=== PATIENT | female | born 1945 | race Caucasian/White ===

== ENCOUNTER → 2018-05-14 11:49 | Outpatient (CLI) | payer OTHER, MEDICAID, SELFPAY ==
[2018-05-14 13:02] LABS: Glucose 82 mg/dL (70-100); Uric Acid 7.4 mg/dL (2.6-6.0)
== END ==
PROVIDERS: PCP Family Medicine; Visit Provider Family Medicine
DX: E79.0 Hyperuricemia without signs of inflammatory arthritis and tophaceous disease (principal); E66.9 Obesity, unspecified
CPT/HCPCS: 36415; 82947; 84550

== ENCOUNTER 2018-05-28 00:54 | Outpatient (CLI) | payer OTHER, MEDICAID, SELFPAY ==
--- NOTE | 2018-05-28 15:10 | DI.MAMMO_ITS ---
SYMPTOMS/DIAGNOSIS: SCREENING, Z12.31 BILATERAL SCREENING MAMMOGRAMS: Mammograms were interpreted according to the usual protocol including computer analysis with CAD system, tomosynthesis and C view imaging. Comparison is made with exams from 2012 through 2016. The breasts are composed of scattered fibroglandular densities. A biopsy marker clip is again noted on the central right breast. There are benign calcifications bilaterally. No suspicious masses or suspicious microcalcifications are seen. There has been no significant change. IMPRESSION: Category 2B, negative mammogram. Routine screening is recommended. MQSA ASSESSMENT OF FINDINGS: Negative with benign findings. Category 2. Patient will receive a letter notifying them of these results. BI-RADS category B. There are scattered areas of fibroglandular density.
== END 2018-05-28 01:14 ==
PROVIDERS: PCP Family Medicine; Visit Provider Family Medicine
DX: Z12.31 Encounter for screening mammogram for malignant neoplasm of breast (principal)
CPT/HCPCS: 77063; 77067

== ENCOUNTER 2019-09-15 11:05 | Observation (INO) | payer OTHER, MEDICAID, SELFPAY ==
[2019-09-15] VITALS (10 sets, daily range): BP systolic 125–169; BP diastolic 66–85; PULSE 81–101; RESP 14–19; TEMP 36.4–37; O2SAT 91–100
--- NOTE | 2019-09-15 11:48 | W.ED.GENAD ---
Discharge Plan Disposition Patient Disposition: [facility] INPATIENT Condition: Stable Discharge Details Chief Complaint: Dizzy/Sync Clinical Impression: Gait instability Admit Date/Time: 09/15/19 14:28 Admit Provider: Isabell Millan Attending Provider: Isabell Millan Primary Care Provider: Haseeb Estrada ED Provider: Leigh Eller Discharge Data Discharge Date/Time-TO BE ENTERED AT DEPARTURE: 09/15/19 15:08 Medical Decision Making Is a very pleasant 74-year-old patient who presents for complaints of onset of lightheadedness and a feeling of syncope which occurred around approximately 2:00 this morning. Patient went to bed feeling normally. Patient reports episode lasted approximately 1 hour then she watched some TV and eventually fell asleep. Patient awoke with an unsteady gait and feels off balance at this time. Patient denies any headache. Patient denies any numbness, tingling or weakness of arms or legs. On exam patient does have focal weakness with left packaging mechanic strength compared to the right. Patient has no focal lower leg findings. Patient does have an unsteady gait at this timeand reports feeling off balance but denies dizziness when ambulating. Otherwise patient has a normal neurologic exam CT ordered as well as initial labs, plan of care at this time is rule out stroke. Patient's initial EKG reveals regular sinus rhythm with a heart rate of 97. Nonspecific flattening of the ST segments was noted diffusely. Reviewed with Dr. Jace Dugan. Patient's labs reveal no significant leukocytosis, no significant CMP changes. Patient's urinalysis unremarkable for obvious infection, trace leukocyte esterase were noted however patient has no significant urinary tract symptoms at this time. CT reveals EXAM: CT HEAD WO CLINICAL HISTORY: unsteady gait, left arm weakness r/o stroke TECHNIQUE: The study was performed according to the usual protocol. COMPARISON: No exams were available for comparison FINDINGS: The ventricles and sulci are consistent with the patient's age. No acute intracranial hemorrhage, midline shift or mass effect is present. The ventricles are intact. The basilar cisterns are patent. Visualized paranasal sinuses are clear as are the mastoid air cells. The calvarium is intact. IMPRESSION: No acute intracranial process. These findings were discussed with the emergency department on the date of the examination. Given patient's symptoms and persisting gait instability and balance loss. I do feel it is reasonable to admit this patient to the hospital for further evaluation of unsteady gait. Spoke with the hospitalist who agrees with mission to the hospital. Patient's preference is admission to the hospital at this time and agrees with plan of care. HPI General Date/Time Provider Initiated Documentation: 09/15/19 11:22. HPI Narrative: Is a 74-year-old patient who presents for complaints of acute dizziness which began while laying in bed lasting approximately an hour beginning at 2:00 this morning. Patient reports the sensation of feeling like she would pass out. Patient reports episode lasted approximately 1 hour. Patient did watch some TV thereafter symptoms were less noticeable. Patient eventually fell asleep woke this morning at approximately 830 and reports her gait seems off balance. Patient does report persistent lightheaded sensation but denies active spinning. Patient does report symptoms are worse when attempting to walk. Patient denies numbness, tingling or weakness of arms or legs. Patient denies headache. Denies recent upper respiratory infection, nasal congestion, fever, nausea, vomiting, cough. Patient denies abdominal pain. Patient denies urinary urgency, frequency or dysuria. Patient was able to eat and felt normal yesterday. Patient reports she was able to have toast and banana this morning without difficulty. Patient does report increased stress. Related Data Home Medications Medication Instructions Recorded Confirmed multivitamin 1 ea PO DAILY 12/30/12 09/15/19 cholecalciferol (vitamin D3) 1 tab PO DAILY #90 tab 11/10/17 09/15/19 lorazepam 0.5 mg tablet 0.5 mg PO QD-BID PRN #14 tab 11/05/18 09/15/19 adjuvant AS01B (PF)vial 1 of 2 0.5 ml IM DAILY #0.5 ml 12/01/18 09/15/19 diclofenac potassium 50 mg tablet 50 mg PO TID PRN #30 tab 03/02/19 09/15/19 fexofenadine 180 mg tablet 180 mg PO DAILY PRN #30 tab-cap 03/02/19 09/15/19 telmisartan 80 mg tablet 40 mg PO DAILY #45 tab 03/04/19 09/15/19 Previous Rx's Medication Instructions Recorded cholecalciferol (vitamin D3) 1 tab PO DAILY #90 tab 11/10/17 lorazepam 0.5 mg tablet 0.5 mg PO QD-BID PRN #14 tab 11/05/18 adjuvant AS01B (PF)vial 1 of 2 0.5 ml IM DAILY #0.5 ml 12/01/18 diclofenac potassium 50 mg tablet 50 mg PO TID PRN #30 tab 03/02/19 fexofenadine 180 mg tablet 180 mg PO DAILY PRN #30 tab-cap 03/02/19 telmisartan 80 mg tablet 40 mg PO DAILY #45 tab 03/04/19 Allergies Allergy/AdvReac Type Severity Reaction Status Date / Time benzonatate Allergy THROAT AND Unverified 09/15/19 11:17 TONGUE SWELLING General Stated Complaint: Dizzy/Sync RAMÓN: 3 Review of Systems All systems reviewed & are unremarkable except as noted in HPI and below Constitutional Constitutional: Denies chills, Denies fatigue, Denies fever(s), Denies headache(s) and Denies malaise Eyes Eyes: Denies blind spots, Denies blurry vision, Denies change in vision and Denies diplopia ENT Ears, Nose, Mouth, and Throat: Denies abnormal hearing, Denies headache(s), Denies neck pain, Reports disequilibrium, Denies sinus pain, Denies sinus pressure and Denies sore throat Cardiovascular Cardiovascular: Denies chest pain, Denies chest pain at rest, Denies chest pain with activity, Denies diaphoresis, Reports lightheadedness, Denies palpitations, Denies dyspnea, Denies dyspnea on exertion and Denies orthopnea Respiratory Respiratory: Denies cough, Denies dyspnea and Denies dyspnea on exertion Gastrointestinal Gastrointestinal: Denies abdominal pain, Denies diarrhea, Denies nausea and Denies vomiting Musculoskeletal Musculoskeletal: Denies neck pain, Denies numbness and Denies tingling Neurologic Neurologic: Denies abnormal hearing, Denies abnormal speech, Denies behavioral changes, Denies burning sensations, Denies confusion, Denies headache(s), Denies numbness, Denies other visual disturbances, Denies sensory deficit, Denies tingling, Denies paresthesias and Reports disequilibrium Psychiatric Psychiatric: Denies behavioral changes and Denies confusion Endocrine Endocrine: Denies fatigue and Denies palpitations PFSH Surgical History Ligation of fallopian tube Family History Mother Essential hypertension Personal history of malignant neoplasm COLON Father Diabetes Essential hypertension Sister No problems noted. Brother , SUICIDE at age 74. Personal history of malignant neoplasm BLADDER Depression Sister Personal history of malignant neoplasm Social History Smoking/Tobacco Use Status: Never Alcohol Intake: never Drug use: Never Exam Narrative Exam Narrative: CONST: Healthy appearing patient, in no acute distress. Well hydrated. Alert and alert. HENMT: Head nomocephalic, normal to inspection. Atraumatic. Hearing grossly normal. External ear canal no erythema or swelling. TM normal bilaterally. Nose normal to inspection. No rhinnorhea. Normal facial exam. Oral mucosa normal. Tounge normal. Dentition normal. Normal posterior oropharynx. Uvula midline. No nystagmus EYES: General normal appearance. Alignment normal. Left eyelid droop which patient reports is chronic. Conjunctiva normal. Sclera normal. PERRL. No nystagmus. No loss of visual boyd NECK: Normal visual inspection. FROM. No lymphadenopathy. Trachea midline. No Midline tenderness. CHEST: Normal insepection of the chest. RESP: Normal respiratory effort. Speaking full sentences. No cough. No wheezing. No retractions. Clear to auscaltation. Breath sound equal and present bilaterally. CARDIO: No JVD. Normal PMI. Regular Rate. Regular Rhythm. Normal peripheral pulses. GI: Normal inspection of abdomen. No distension. Soft. Nontender. Bowel sounds present in all 4 quadrants. No rebound. No gaurding. MUSCULOSKELETAL: Normal Gait. FROM of all extremities. Distal neurovascularly intact. Sensation intact distally. SKIN: Normal. Dry. No rashes. NEURO: Alert and awake. Speech clear. Alert and oriented x 3. Speech is clear. Cranial nerves intact as tested III - XI. Normal Nojoir-jo-jfel test. Normal heel-lujan test. No Nystagmus. Off balance, unsteady gait. Strength 5/5 right hand, 4/5 left hand. Strength intact and equal in lower extremities. Sensation intact in all extremities. PSYCH: Normal affect. Cooperative. Course Vital Signs Vital signs: Vital Signs Temperature 37 C 09/15/19 11:11 Pulse 101 H 09/15/19 11:11 Respiratory Rate 16 09/15/19 11:11 Blood Pressure 137/85 09/15/19 11:11 Pulse Oximetry 99 09/15/19 11:11 Temperature 37 C 09/15/19 11:11 Temperature Source Skin 09/15/19 11:11 Pulse 101 H 09/15/19 11:11 Respiratory Rate 16 09/15/19 11:18 Respiratory Effort Non-Labored 09/15/19 11:18 Respiratory Depth Normal 09/15/19 11:18 Respiratory Pattern Normal 09/15/19 11:18 Blood Pressure 137/85 09/15/19 11:11 Blood Pressure Position Sitting 09/15/19 11:11 Pulse Oximetry 99 09/15/19 11:11 Oxygen Delivery Method Room Air 09/15/19 11:11 Oxygen Flow Rate 0 09/15/19 11:11 Pain Level 0 09/15/19 11:11
[2019-09-15 12:00] LABS: Bilirubin Negative (Negative); Blood Negative (Negative); Clarity Clear (Clear); Glucose Negative (Negative); Ketones Negative (Negative); Leukocyte Esterase Trace (Negative); Nitrite Negative (Negative); Specific Gravity <= 1.005 (1.005-1.025); Urobilinogen 0.2 EU/dL (Up TO 0.2)
[2019-09-15 12:08] LABS: Bacteria Few HPF (Negative); C & S Indicated? C&S Done As Ordered; Casts Negative LPF (Negative); Crystals Negative HPF (Negative); Epithelial Cells Rare HPF (Negative); Mucus Negative (Negative); Other Cells Few Transitional (Negative); RBC Negative HPF (0-2); WBC 0-2 HPF (0-5)
[2019-09-15 12:21] LABS: Abs Immature Grans 0.03 k/cumm (0.0-0.09); Absolute Basophil Count 0.04 k/cumm (0.0-0.2); Absolute Monocyte Count 0.74 k/cumm (0.11-0.7); Absolute Neutrophil Count 4.67 k/cumm (1.2-6.7); Basophils % 0.5; Eosinophils % 1.2; HCT 41.2 % (36.0-46.0); HGB 14.3 g/dL (12.0-15.5); Immature Grans % 0.4; Lymphocytes % 34.2; Mean Corp. HGB Concentration 34.7 g/dL (32.0-36.0); Mean Corpuscular Hemoglobin 32.2 pg (27.0-33.0); Mean Corpuscular Volume 92.8 fL (80-95); Mean Platelet Volume 9.7 fL (8.0-11.0); Monocytes % 8.7; Platelet Count 280 x1000/uL (130-400); RBC 4.44 m/cumm (4.00-5.20); RBC Distribution Width 13.3 % (11.7-14.6); White Blood Cell Count 8.48 k/cumm (4.4-10.8)
[2019-09-15 12:38] LABS: ALT 28 U/L (14-59); AST 20 U/L (15-37); Alkaline Phosphatase 111 U/L (46-116); Anion Gap 10.2 mmol/L (3-11); BUN 16 mg/dL (7-18); Bilirubin, Total 0.4 mg/dL (0.2-1.0); CO2 27.8 mmol/L (21.0-32.0); CREATININE 1.15 mg/dL (0.55-1.02); Calcium 9.2 mg/dL (8.5-10.1); Chloride 104 mmol/L (98-107); Estimated GFR 46.25 (mL/min/1.73m2); Glucose 111 mg/dL (74-106); Sodium 142 mmol/L (136-145); Total Protein 7.5 g/dL (6.4-8.2)
[2019-09-15 12:38] LABS: PTT Activated 23.9 sec (21.0-31.4); Prothrombin Time 10.1 sec (9.3-11.0)
[2019-09-15 12:41] LABS: Troponin I < 0.05 ng/Ml (<0.06)
[2019-09-15] MEDS: Normal Saline 1,000 ML 1000 ML IV (12:43)
--- NOTE | 2019-09-15 12:53 | DI.CT_ITS ---
EXAM: CT HEAD WO CLINICAL HISTORY: unsteady gait, left arm weakness r/o stroke TECHNIQUE: The study was performed according to the usual protocol. COMPARISON: No exams were available for comparison FINDINGS: The ventricles and sulci are consistent with the patient's age. No acute intracranial hemorrhage, mi dline shift or mass effect is present. The ventricles are intact. The basilar cisterns are patent. Visualized paranasal sinuses are clear as are the mastoid air cells. The calvarium is intact. IMPRESSION: No acute intracranial process. These findings were discussed with the emergency department on the date of the examination.
[2019-09-15] MEDS: Aspirin 325 MG TAB PO (14:30)
[2019-09-15] MEDS: LORazepam 0.5 MG TAB PO (14:30)
--- NOTE | 2019-09-15 14:59 | NUR.NOTE ---
pt eating lunch, sitting at bedside. friend with ptNursing Note:
--- NOTE | 2019-09-15 15:04 | HPE_ITS ---
Date of service: 09/15/19 Time of Service: 15:04 Assessment and Plan Assessment and plan (1) Dizziness: Start date: 09/15/19 Start time: 15:22 Status: Acute Assessment and plan: Presents with feelings of dizziness while waking up last night. States her head was spinning. CT negative, Labs unremarkable. Admitted to m/s obs for further work up Lipid panel in am Carotid u/s Teley, echo in am Likely vertigo given history of events and assessment will treat with meclizine for dizziness zofran for nausea. PT eval (2) Anxiety: Start date: 09/15/19 Start time: 15:27 Status: Chronic Assessment and plan: Highly anxious person, could be contributing to symptoms as well. Takes ativan po qd-BID. Ativan IVP for anxiety (3) Hypertension: Start date: 09/15/19 Start time: 15:26 Status: Chronic Assessment and plan: Variable in the ED will continue home medications (4) Hyperlipidemia: Start date: 09/15/19 Start time: 15:28 Status: Acute Assessment and plan: Recheck lipid level in am. Not currently on statin last cholesterol reading from 2015 196, LDL 102 and HDL 78 with triglyceride 141. (5) Gastroesophageal reflux disease: Start date: 09/15/19 Start time: 15:27 Status: Chronic Assessment and plan: Not currently on a PPI will start omeprazole (6) DVT prophylaxis: Start date: 09/15/19 Start time: 15:30 Status: Acute Assessment and plan: SCDs, TEDs Above case reviewed with Dr. Millan who is in agreement with chart. History of Present Illness History of Present Illness Chief Complaint: Dizziness Narrative: 74 y.o female with PMH of HTN, anxiety presents to [facility] ED with an episode of dizziness last night. Ms. Webb woke up at 2 am with feelings of dizziness while lying in bed, feeling like her head was spinning. She was unable to fall back a sleep right away so she proceeded to go to the living room and watch tv. After a while dizziness subsided and she was able to go back to her bed and fall asleep. No dizziness with waking this am, though after making breakfast her head felt funny. She also states ear pain last night before going to bed. Imaging in the ED negative for acute abnormality, labs unremarkable except elevated creatinine; but appears baseline for her. TM pink shiny. Positive vertical nystagmus. No pronator drift or weakness to BUE or BLE. She is being admitted to m/s obs for further work up of her dizziness; which appears more virtiginous in nature. Will have PT work with her, check lipid panel in am, u/s carotids, echo and labs. She denies CP, SOB, N/V/D. Review of Systems All systems reviewed & are unremarkable except as noted in HPI and below PFSH Surgical History Ligation of fallopian tube Family History Mother Essential hypertension Personal history of malignant neoplasm COLON Father Diabetes Essential hypertension Sister No problems noted. Brother , SUICIDE at age 74. Personal history of malignant neoplasm BLADDER Depression Sister Personal history of malignant neoplasm Social History Smoking/Tobacco Use Status: Never Alcohol Intake: never Drug use: Never Meds Home Medications and Allergies Home Medications Medication Instructions Recorded Confirmed Type multivitamin 1 ea PO DAILY 12/30/12 09/15/19 History cholecalciferol (vitamin D3) 1 tab PO DAILY #90 tab 11/10/17 09/15/19 Rx lorazepam 0.5 mg tablet 0.5 mg PO QD-BID PRN #14 tab 11/05/18 09/15/19 Rx adjuvant AS01B (PF)vial 1 of 2 0.5 ml IM DAILY #0.5 ml 12/01/18 09/15/19 Rx diclofenac potassium 50 mg tablet 50 mg PO TID PRN #30 tab 03/02/19 09/15/19 Rx fexofenadine 180 mg tablet 180 mg PO DAILY PRN #30 tab-cap 03/02/19 09/15/19 Rx telmisartan 80 mg tablet 40 mg PO DAILY #45 tab 03/04/19 09/15/19 Rx Allergies Allergy/AdvReac Type Severity Reaction Status Date / Time benzonatate Allergy THROAT AND Unverified 09/15/19 11:17 TONGUE SWELLING Exam Narrative Exam Narrative: Const: Pleasant stated for age female, lying on stretcher. NAD HENMT: No lymphedema, no visible goiter or thyroid.TM visible, shiny, pink bilaterally Eyes: Nystagmus present to the right. EOMI, PERRLA Resp: Even unlabored. LCTAB. Able to speak complete sentences Cardio: RRR no murmur or gallop appreciated GI: abd soft, nontender. No pain with palpation : no cva tenderness, genital exam deferred. Back/Spine: normocurvature of the spine Skin: intact, MMM Extrem: FROM to all extremities Psych: appropriate mood and AAO x 3 Results Labs Result diagrams: 09/15/19 12:15 09/15/19 11:45 Labs: Laboratory Results - last 24 hr 09/15/19 09/15/19 09/15/19 11:45 11:55 12:15 WBC 8.48 RBC 4.44 Hgb 14.3 Hct 41.2 MCV 92.8 MCH 32.2 MCHC 34.7 RDW 13.3 Plt Count 280 MPV 9.7 Immature Gran % 0.4 Neutrophils % 55.0 Lymphocytes % 34.2 Monocytes % 8.7 Eosinophils % 1.2 Basophils % 0.5 Absolute Neutrophils 4.67 Absolute Lymphocytes 2.90 Absolute Monocytes 0.74 H Absolute Eosinophils 0.10 Absolute Basophils 0.04 PT INR APTT Sodium 142 Potassium 4.0 Chloride 104 Carbon Dioxide 27.8 Anion Gap 10.2 BUN 16 Creatinine 1.15 H Estimated GFR/1.73 m2 46.25 Glucose 111 H Calcium 9.2 Total Bilirubin 0.4 AST 20 ALT 28 Alkaline Phosphatase 111 Troponin I < 0.05 Total Protein 7.5 Albumin 4.0 Urine Color Yellow Urine Clarity Clear Urine pH 6.0 Ur Specific [place] <= 1.005 Urine Protein Negative Urine Ketones Negative Urine Blood Negative Urine Nitrite Negative Urine Bilirubin Negative Urine Urobilinogen 0.2 Ur Leukocyte Esterase Trace H Urine RBC Negative Urine WBC 0-2 Ur Epithelial Cells Rare Urine Crystals Negative Urine Bacteria Few Urine Casts Negative Urine Mucus Negative Urine Other Few transitional Ur Culture Indicated? C&s done as ordered Urine Glucose Negative Patient ABO/Rh Antibody Screen 09/15/19 09/15/19 12:15 12:26 WBC RBC Hgb Hct MCV MCH MCHC RDW Plt Count MPV Immature Gran % Neutrophils % Lymphocytes % Monocytes % Eosinophils % Basophils % Absolute Neutrophils Absolute Lymphocytes Absolute Monocytes Absolute Eosinophils Absolute Basophils PT 10.1 INR 1.0 APTT 23.9 Sodium Potassium Chloride Carbon Dioxide Anion Gap BUN Creatinine Estimated GFR/1.73 m2 Glucose Calcium Total Bilirubin AST ALT Alkaline Phosphatase Troponin I Total Protein Albumin Urine Color Urine Clarity Urine pH Ur Specific [place] Urine Protein Urine Ketones Urine Blood Urine Nitrite Urine Bilirubin Urine Urobilinogen Ur Leukocyte Esterase Urine RBC Urine WBC Ur Epithelial Cells Urine Crystals Urine Bacteria Urine Casts Urine Mucus Urine Other Ur Culture Indicated? Urine Glucose Patient ABO/Rh O Positive Antibody Screen Negative Last Vital Signs Temp 36.4 C L 09/15/19 13:52 Pulse 83 09/15/19 13:52 Resp 14 09/15/19 13:52 BP 152/66 H 09/15/19 13:52 Pulse Ox 100 09/15/19 13:52
[2019-09-15 15:05] LABS: Troponin I < 0.05 ng/Ml (<0.06)
--- NOTE | 2019-09-15 15:17 | DI.MRI_ITS ---
EXAM: MR BRAIN WO CLINICAL HISTORY: DIZZINESS, ATAXIA TECHNIQUE: Multiplanar multisequence MRI of the brain was performed. COMPARISON: No exams were available for comparison FINDINGS: VENTRICLES AND EXTRA AXIAL SPACES: Normal in size and morphology for the patient's age. HEMORRHAGE: None. CEREBRAL PARENCHYMA: No focus of restricted diffusion to suggest acute infarct. No space-occupying le alexander identified. There are a few scattered foci of hyperintense signal on the FLAIR and T2 weighted images. These likely reflect small vessel ischemic disease. MIDLINE SHIFT: None. BRAINSTEM/CEREBELLUM: Unremarkable. CALVARIUM: Unremarkable. VISUALIZED PARANASAL SINUSES/MASTOIDS: Clear. OTHER FINDINGS: There is a normal flow void in the [place] of [place]. There is a partially empty sell a. IMPRESSION: No acute intracranial process. No findings to suggest an acute infarct.
--- NOTE | 2019-09-15 15:30 | DI.MRI_ITS ---
CLINICAL HISTORY: SUSPECTED CEREBROVASCULAR ACCIDENT. TECHNIQUE: Multiplanar multisequence MRA of the brain was performed. IV Contrast: 0 mL of Magnevist contrast administered. COMPARISON: CT scan of the brain from 09/15/2019. FINDINGS: Carotid Arteries: Petrous: Normal. Cavernous: Normal. Cerebral: Normal. Middle Cerebral Arteries: Right: No aneurysm, occlusion or significant stenosis. Left: No aneurysm, occlusion or significant stenosis. Anterior Cerebral Arteries: Right: No aneurysm, occlusion or significant stenosis. Left: No aneurysm, occlusion or significant stenosis. Posterior cerebral arteries: Right: There is origin. No aneurysm, occlusion or significant stenosis. Left: No aneurysm, occlusion or significant stenosis. Vertebral Arteries: Right: No aneurysm occlusion or significant stenosis. Left: No aneurysm, occlusion or significant stenosis. . Basilar Artery: No aneurysm, occlusion or significant stenosis. Small Vessels: No evidence of beading. IMPRESSION: No acute abnormality.
[2019-09-15] MEDS: Normal Saline 1,000 ML 150 ML IV ×2 (16:42→22:48)
[2019-09-15 21:06] LABS: Troponin I < 0.05 ng/Ml (<0.06)
[2019-09-16] VITALS (8 sets, daily range): BP systolic 122–168; BP diastolic 78–101; PULSE 76–87; RESP 16–20; TEMP 36.1–37; O2SAT 94–98
[2019-09-16] MEDS: Normal Saline 1,000 ML 150 ML IV ×2 (05:22→14:13)
[2019-09-16 07:16] LABS: Abs Immature Grans 0.02 k/cumm (0.0-0.09); Absolute Basophil Count 0.03 k/cumm (0.0-0.2); Absolute Eosinophil Count 0.18 k/cumm (0.0-0.7); Absolute Lymphocyte Count 2.62 k/cumm (1.2-3.4); Absolute Monocyte Count 0.54 k/cumm (0.11-0.7); Absolute Neutrophil Count 3.58 k/cumm (1.2-6.7); Basophils % 0.4; Eosinophils % 2.6; HCT 36.8 % (36.0-46.0); HGB 12.3 g/dL (12.0-15.5); Immature Grans % 0.3; Lymphocytes % 37.6; Mean Corp. HGB Concentration 33.4 g/dL (32.0-36.0); Mean Corpuscular Hemoglobin 31.3 pg (27.0-33.0); Mean Corpuscular Volume 93.6 fL (80-95); Mean Platelet Volume 9.8 fL (8.0-11.0); Monocytes % 7.7; Neutrophils % 51.4; Platelet Count 247 x1000/uL (130-400); RBC 3.93 m/cumm (4.00-5.20); RBC Distribution Width 13.3 % (11.7-14.6); White Blood Cell Count 6.97 k/cumm (4.4-10.8)
[2019-09-16] MEDS: Normal Saline Flush 10 ML SYR IVP ×2 (07:20→08:20)
[2019-09-16] MEDS: Omeprazole 10 MG CAPCR PO (07:22)
--- NOTE | 2019-09-16 07:30 | DI.US_ITS ---
APPROVED REPORT EXAM: Comprehensive 2D, Doppler, and color-flow Echocardiogram Patient Location: In-Patient Continuity Coordinator: Eveline Linton RDCS (AE) Rhythm: NSR Indications: SUSPECTED CVA, WITH BUBBLE STUDY PLEASE! Conclusion Normal LV wall thickness and chmber size EF is 60 -65%. Wall motion is normal There is no chamber enlargement There is no significant valvular disease Bubble study is negative for intracardiac shunt Wall motion Left Ventricle The left ventricle is normal size. The left ventricular systolic function is normal. The left ventric ular ejection fraction is within the normal range. Asymmetric septal thickening is noted. Mild basal septal hypertrophy is present. no provocable obstructions were found. There is normal LV segmental wa ll motion. abnormal relax with valsalva Transmitral Doppler flow pattern suggests impaired LV relaxat ion. LVEF is estimated to be 60-65%. Right Ventricle The right ventricle is normal size. The right ventricular systolic function appears normal. Right carlos tricle is hypertrophied. Atria The left atrium size is top normal. The right atrium size is normal. Aortic Valve Aortic valve is trileaflet. There is no aortic valvular stenosis. No aortic regurgitation is present. Mitral Valve Mitral valve leaflets are mildly thickened. Trivial to mild mitral regurgitation. Tricuspid Valve Tricuspid valve leaflets are mildly thickened but open well. Trivial to mild tricuspid regurgitation. Pulmonic Valve Pulmonic valve is not well visualized. Trace pulmonic regurgitation. Great Vessels The aortic root is normal in size. The ascending aorta is mildly dilated at 3.8cm. IVC is normal in s ize and collapses >50% with inspiration. Pericardium Anterior epicardial fat pad is present. 2D Dimensions IVSd 1.30 cm F: 0.6-1.0 LV EDV A2C 64.30 mL PWd 1.00 cm F: 0.6 - 1.0 LV EDV A4C 53.60 mL LVDd 4.10 cm F: 3.8 - 5.2 LA Volume Index A2C 35.82 mL/m2 LVDs 2.40 cm F: 2.2 - 3.5 LA Volume Index A4C 27.04 mL/m2 Aortic Root 2.75 cm F: 2.7 - 3.3 LA Volume Index Biplane 31.33 mL/m2 RA Area A4C 14.25 cm2 LA Area A4C 18.83 cm2 LVOT 1.90 cm (M/F) 1.5-2.5 LA Area A2C 21.81 cm2 Ascending Aorta 3.83 cm F: 2.3 - 3.1 EF AP4 60.63 % LVEF (Teich) 72.35 % EF AP2 59.72 % LVEF (Lewis's) 60.44 % F: 54 - 74 EF BP 60.44 % LV Volume 45.79 mL F: 46 - 106 LV Volume Index 24.35 mL/m2 F: 29 - 61 FS 41.05 % LV Diastology E/A Ratio 0.8 MED E' 0.09 (>0.07 m/s) LV E/e MED 11.85 (<14) LAT E' 0.09 (>0.1 m/s) LV E/e LAT 10.90 (<14) Pulm Vein s 0.75 m/s PV S/D Ratio 1.68 Pulm Vein d 0.45 m/s Aortic Valve LVOT Area 2.86 cm2 LVOT Vmax 1.02 m/s LVOT Mean Zafar. 0.74 m/s LVOT Peak Gr. 4.2 mmHg LVOT Mean Gr. 2.5 mmHg AoV Area/ BSA (Vmax) 0.92 cm2/m2 LVOT VTI 0.200 m AoV Vmax 1.69 (0.5-1.3 m/s) KARAN Mean Zafar. Index 0.98 cm2/m2 AoV Mean Zafar. 1.14 m/s AoV Peak Grad 11.5 mmHg AoV Mean Grad 5.8 (<5 mmHg) AoV VTI 0.323 (0.18-0.25 m) VTI Ratio 0.71 AoV Area VTI 2.04 (2.5-4.5 cm2) AoV Area/ BSA (VTI) 1.08 cm/m2 Mitral Valve MV E Max Zafar. 1.03 (0.4-1.3 m/s) MV A Velocity 1.30 (0.4-1.3 m/s) E/A Ratio 0.78 MV Decel. Time 216.75 (160-240 msec) MV PHT 62.87 msec MVA PHT 3.45 cm2 Pulmonary Valve PV Peak Velocity 0.97 (0.5-1.5 m/s) Tricuspid Valve TR P. Velocity 3.20 m/s TV Regurg Vmax 3.20 m/s RAP Estimate 3.00 mmHg RVSP 44.02 mmHg TR P. Gradient 41.00 mmHg
[2019-09-16 07:56] LABS: Anion Gap 10.1 mmol/L (3-11); BUN 16 mg/dL (7-18); CO2 24.9 mmol/L (21.0-32.0); CREATININE 1.06 mg/dL (0.55-1.02); Calcium 8.5 mg/dL (8.5-10.1); Chloride 110 mmol/L (98-107); Estimated GFR 50.81 (mL/min/1.73m2); Glucose 94 mg/dL (74-106); Magnesium 1.7 mg/dL (1.8-2.4); Potassium 4.2 mmol/L (3.5-5.1); Sodium 145 mmol/L (136-145); TSH (W/Ref FT4) 1.62 uIU/mL (0.36-3.74)
--- NOTE | 2019-09-16 08:31 | DI.US_ITS ---
EXAM: US CAROTID CLINICAL HISTORY: suspected CVA TECHNIQUE: Ultrasound performed using standard protocol. COMPARISON: US ECHOCARDIOGRAM from 09/16/2019 FINDINGS: Duplex evaluation of the carotid circulation was performed according to the usual protocol. There is little if any visible atheromatous plaque in the carotid circulation. Flow velocities in common int ernal and external carotid arteries are within normal limits bilaterally. There is bilateral antegra de vertebral flow. IMPRESSION: No evidence of a hemodynamically significant carotid stenosis.
[2019-09-16 08:37] LABS: Calculated LDL 93 mg/dL; Cholesterol 177 mg/dL (<200); HDL Cholesterol 71 mg/dL (40-60); Triglyceride 68 mg/dL (<150); Vitamin B12 599 pg/mL (193-986)
[2019-09-16] MEDS: Meclizine 25 MG TAB PO ×2 (09:34→17:10)
[2019-09-16] MEDS: Aspirin E.C. 81 MG TABEC PO (09:34)
[2019-09-16] MEDS: Cholecalciferol (Vitamin D3) 1,000 UNIT TAB 1000 UNITS PO (09:34)
--- NOTE | 2019-09-16 09:40 | NUR.NOTE ---
Nursing Note: Patient returned from her testing c/o feeling very dizzy. Patient stated that she was feeling fine until she was assisted off the stretcher and back into a w/c to return to her room. Vital signs taken see VS intervention. Patient assisted back to bed. Patient needed to void so a bedpan was used
--- NOTE | 2019-09-16 10:31 | PT.INIE ---
Date of service: 09/16/19 Time of Service: 09:46 PT Notes Visit Reasons: DIZZINESS, ATAXIA, VERTIGO VS CVA Physical Therapy Inpatient Initial Evaluation Date: 09/16/2019 Referring Doctor: Isabell Millan MD PT Orders: PT CONSULT: Limited ability Precautions: Fall. Standard. Activity as tolerated. Patient is a 74-year-old male Patient Profile/Admitting Diagnosis: Patient is a 74-year-old female who presented to the ED on 09/15/2019 with chief complaints of lightheadedness, feeling off balance and unsteady gait. Patient is diagnosed with dizziness, anxiety, and hyperlipidemia with referral for skilled physical therapy services to assess and treat for for benign paroxysmal positional vertigo. PMHX: Surgical History Ligation of fallopian tube Social History/Home Situation: Patient lives alone in an apartment with 3 steps to enter and rails on both sides. She is independent with all aspects of ADLs without the need for an assistive device or adaptive equipment. Equipment Owned/DME: None Subjective: Patient continues to report a sensation of room is spinning, or her head swimming, and a sense of being off balance at time of evaluation. She states that she has taken meclizine early this morning. She is agreeable to a PT consult although she states that she is not sure how much is able to do do to this new episode of lightheadedness. Objective: General Observation: Patient seen resting in bed. IV in left UE. Bilateral TEDS on. Mental Status: Alert and oriented x4 Pain: None reported ROM: Right Upper Extremity: Shoulder Flexion WFL. Shoulder abduction WFL. Elbow flexion WFL. Wrist flexion WFL. Opening and closing of hand WFL. Left Upper Extremity: Shoulder Flexion WFL. Shoulder abduction WFL. Elbow flexion WFL. Wrist flexion WFL. Opening and closing of hand WFL. Right Lower Extremity: Hip flexion WFL. Hip abduction WFL. Knee flexion WFL. Ankle dorsiflexion WFL. Ankle plantarflexion WFL. Left Lower Extremity: Hip flexion WFL. Hip abduction WFL. Knee flexion WFL. Ankle dorsiflexion WFL. Ankle plantarflexion WFL. Strength: Right Upper Extremity: Shoulder flexors 5/5. Shoulder abductors 5/5. Elbow flexors 5/5. Elbow extensors 5/5. Child Development Teacher strong. Left Upper Extremity: Shoulder flexors 5/5. Shoulder abductors 5/5. Elbow flexors 5/5. Elbow extensors 5/5. Child Development Teacher strong. Right Lower Extremity: Hip flexors 4/5. Hip abductors 4/5. Knee flexors 5/5. Knee extensors 4/5. Ankle dorsiflexors 5/5. Ankle plantarflexors 5/5. Left Lower Extremity:Hip flexors 4/5. Hip abductors 4/5. Knee flexors 5/5. Knee extensors 4/5. Ankle dorsiflexors 5/5. Ankle plantarflexors 5/5. Sensation: Intact as to pain and pressure on bilateral lower extremities. Bed Mobility/Transfers: Rolling CGA Supine to sit CGA Sit to supine CGA Sit to stand CGA Stand to sit CGA Bed to chair NT due to dizziness Chair to bed NT due to dizziness Gait: NT due to dizziness Balance: Static Sitting: Fair Dynamic Sitting: Fair Static Standing: Fair Dynamic Standing: Fair Special Tests: Mobility Limitations Standardized Measure [facility] 6 clicks Basic Mobility Inpatient Short Form: Raw Score: 18 CMS Score: 47% deficit Informed Consent/Education: Patient instructed in purpose of PT consult and plan of care. Patient was informed about BPPV, was instructed about how the Gufoni Maneuver is done, and how to do gaze stabilization exercises as part of her vestibular rehabilitation. Assessment: Spontaneous nystagmus negative. Cervical spine testing was cleared using the Sharp Vale and the Alar Ligament tests which are both negative. Jay-Hallpike maneuver was negative. Supine head roll test was done with patient manifesting with left apogeotrohic horizontal canalithiasis responsible for benign paroxysmal positional vertigo. Patient presents with clinical signs and symptoms consistent with current/admitting diagnoses that have resulted to mobility limitations, gait instability, generalized weakness, and impairment of motor control as demonstrated by the following impairment level findings: 1. Spinning sensation, sense of being off-balance 2. Impaired sitting/standing balance 3. Impaired activity tolerance Impairments are contributing to the following functional limitations: 1. Dependent bed mobility skills 2. Increased dependence with transfers 3. Inability to safely ambulate without assistive device and physical assistance 4. Increase completion time for mobility ADL performance 5. Increased fall risk 6. Inability to negotiate steps alone safely Patient is assessed [place] a 47964 moderate complexity based on the following: History: Patient is a 74-year-old female who presented to the ED on 09/15/2019 with chief complaints of lightheadedness, feeling off balance and unsteady gait. Patient is diagnosed with dizziness, anxiety, and hyperlipidemia with referral for skilled physical therapy services to assess and treat for for benign paroxysmal positional vertigo. Examination: Demonstrable impairment in strength, balance, and range of motion with underlying impairments and functional limitations as documented above Presentation: Evolving Decision Makin moderate complexity Goals: Goals X1 week 1. Supine-Sit independent 2. Sit-Supine independent 3. Sit-Stand independent 4. Stand-Sit independent 5. Bed-Chair independent 6. Chair-Bed independent 7. Independent gait on level surface with use of least restrictive device for at least 300 feet without report of pain nor dyspnea 8. Independent stair negotiation while holding onto bilateral rails for at least 5 steps without report of pain nor dyspnea 9. Independent with home exercise program 10. Good static and dynamic standing balance/tolerance Plan of Care/Treatment Plan: Patient was provided with 1 treatment of liquid phoneme maneuver as she is unable to tolerate a second 1 at this time she did agree to having it done again this afternoon hopefully before she leaves. 1-2x/day, 7 days/week x 1 week. Plan of care has been reviewed with the MISSILE PAD MECHANIC providing the service under Physical Therapy direction. Initiate Physical Therapy intervention for strengthening, bed mobility, transfers, gait, stairs, balance training, use of assistive device. DISCHARGE RECOMMENDATIONS: May discharge to home once medically cleared. Continue with outpatient physical therapy services for management of left apogeotrophic horizontal canalithiasis resulting to benign paroxysmal positional vertigo in order to facilitate return to unrestricted ADL performance at home and in the community. TREATMENT CODE/TIME: 45374 x 20 minutes, 9753 0 x 18 minutes beginning at 9:46 AM. Thank you very much for this referral. Christine Lopez PT, DPT, CLT [facility] [place], [place]
[2019-09-16] MEDS: Magnesium Oxide 400 MG TAB PO ×2 (14:16→20:42)
--- NOTE | 2019-09-16 15:25 | CHAPLAIN ---
Vangie was in bed when I visited. She said she expects to have family visit, but she doesn't know when. We had a short conversation and she did not seem interested in further conversation.
--- NOTE | 2019-09-16 16:00 | PT.INTREAT ---
Date of service: 09/16/19 Time of Service: 14:40 PT Notes Visit Reasons: DIZZINESS, ATAXIA, VERTIGO VS CVA Inpatient Physical Therapy Treatment Note [facility] Date: 09/15/2019 PRECAUTIONS:Fall. Standard. Vertigo. SUBJECTIVE: Patient reports feeling significantly better in the afternoon session and is quite surprised at how she was better able to walk from bedside to the bathroom without any difficulty and without assistive device. OBJECTIVE: IV in L UE. PAIN: 0/10 BED MOBILITY/TRANSFERS Rolling L/R: SBA Supine-sit: SBA Sit-supine: SBA Sit-stand: SBA Stand-sit: SBA Bed-Chair: SBA Chair-bed: SBA GAIT Assistive Device: None Weight bearing: Full Assist: SBA Distance: 25' x 2 Deviation: Decreased meenakshi due to minimal lightheadedness. Patient reports significant improvement in symptoms which has allowed her to safely navigate in-room distances without any assistive device. ASSESSMENT: Patient has horizontal canal BPPV with L ageotrophic horizontal nystagmus seen during the supine head roll test. She tolerated one repetition of the Gufoni Maneuver in the morning. In the afternoon, patient managed two Gufoni Maneuvers with no significant report of being off-balance nor complaints of the room spinning. Another session will be attempted tomorrow morning if no full resolution of symptoms are achieved. PLAN: Continue with Gufoni Maneuver tomorrow if patient has not gone home yet to facilitate resolution of horizontal canal BPV. TREATMENT CODE/TIME: 46874 x 33 minutes beginning at 14:40 PM.
--- NOTE | 2019-09-16 16:22 | W.PM.PROGNOT ---
Date of Service Date of service: 09/16/19 Time of Service: 16:22 Assessment and Plan Assessment and plan (1) Benign paroxysmal positional vertigo: Status: Acute Assessment and plan: Improving. PT continues to work with her. Meclizine improves symptoms. Echo with LVEF 60-65%, no wall motion abnormalities, no significant valvular disease, bubble study negative for intracardiac shunt. Carotid artery ultrasound shows no evidence of a hemodynamically significant carotid stenosis. Brain MRI/MRA negative for acute process. Continue PT. Continue meclizine. Likely for discharge within the next 24 hours. (2) Anxiety: Status: Chronic Assessment and plan: Highly anxious at baseline. Continue home ativan. (3) Hypertension: Status: Chronic Assessment and plan: Variable. Currently 146/82. Continue ARB. Continue to monitor blood pressure. Consider adding amlodipine if her blood pressure is consistently elevated. (4) Hyperlipidemia: Status: Acute Assessment and plan: Not currently on a statin. (5) Gastroesophageal reflux disease: Status: Chronic Assessment and plan: Continue PPI. (6) DVT prophylaxis: Status: Acute Assessment and plan: subcutaneous lovenox. Continue SCDs and teds. (7) Discharge planning issues: Status: Acute Assessment and plan: She is a full code. She will work with physical therapy again tomorrow morning. Likely for discharge after PT. This case was discussed with Dr. Millan who is in agreement. Subjective Subjective Interval history since last seen: Ms Webb continues to report a dizzy sensation when she got up out of bed and ambulated to the bathroom. Meclizine helps. She reports improvement since working with PT. PT reports improvement in her symptoms from morning to afternoon sessions. She denies headache, chills, shortness of breath, coughing, wheezing, chest pain/pressure, palpitations, abdominal pain, nausea, vomiting or diarrhea. She is eating and drinking and tolerating her diet. Exam Narrative Exam Narrative: General: pleasant, cooperative female, sitting up in bed, in NAD. Answers questions appropriately. HEENT: no nystagmus, EOMI, pupils equal and round. Ptosis of left eye. Neck: supple, no JVD. Cardiovascular: heart has regular rate and rhythm, no murmur appreciated, nontachycardic. Respiratory: respirations even and unlabored, lung sounds clear bilaterally. GI: normoactive bowel sounds, abdomen soft, nontender, nondistended. Extremities: No significant lower extremity edema. Pedal pulses palpable bilaterally. Objective Objective Clinical Data: Abnormal lab results 09/16/19 09/16/19 Range/Units 06:30 06:30 RBC 3.93 L (4.00-5.20) m/cumm Chloride 110 H (98-107) mmol/L Creatinine 1.06 H (0.55-1.02) mg/dL Magnesium 1.7 L (1.8-2.4) mg/dL HDL Cholesterol 71 H (40-60) mg/dL Vital Signs Temperature 37.0 C 09/16/19 15:42 Temperature Source Tympanic 09/16/19 15:42 Pulse 85 09/16/19 15:42 Pulse Rhythm Irregular 09/16/19 15:31 Respiratory Rate 19 09/16/19 15:42 Respiratory Effort Non-Labored 09/16/19 15:31 Respiratory Depth Normal 09/16/19 15:31 Respiratory Pattern Normal 09/16/19 15:31 Blood Pressure 146/82 H 09/16/19 15:42 Blood Pressure Position Sitting 09/15/19 11:11 Pulse Oximetry 98 09/16/19 15:42 Oxygen Delivery Method Room Air 09/16/19 15:42 Oxygen Flow Rate 0 09/16/19 15:42 Pain Level 0 09/16/19 15:42 Intake & Output 09/15/19 09/16/19 09/16/19 23:59 11:59 23:59 Intake Total 2064 / 2064 1280 / 1957.5 677.5 / 1957.5 Output Total 600 / 600 1300 / 1700 400 / 1700 Balance 1465 / 1465 -20 / 257.5 277.5 / 257.5 Weight 90.718 kg 92.9 kg Intake: IV 1914 / 1914 1280 / 1957.5 677.5 / 1957.5 Oral 150 / 150 Output: Urine 600 / 600 1300 / 1700 400 / 1700 Other: Urine Color Pale Yellow Pale Straw Yellow Urine Appearance Clear Clear Clear Urine Odor None Voiding Methods Toilet Bedpan Toilet Laboratory Results WBC 6.97 k/cumm (4.4-10.8) 09/16/19 06:30 RBC 3.93 m/cumm (4.00-5.20) L 09/16/19 06:30 Hgb 12.3 g/dL (12.0-15.5) 09/16/19 06:30 Hct 36.8 % (36.0-46.0) 09/16/19 06:30 MCV 93.6 fL (80-95) 09/16/19 06:30 MCH 31.3 pg (27.0-33.0) 09/16/19 06:30 MCHC 33.4 g/dL (32.0-36.0) 09/16/19 06:30 RDW 13.3 % (11.7-14.6) 09/16/19 06:30 Plt Count 247 x1000/uL (130-400) 09/16/19 06:30 MPV 9.8 fL (8.0-11.0) 09/16/19 06:30 Immature Gran % 0.3 09/16/19 06:30 Neutrophils % 51.4 09/16/19 06:30 Lymphocytes % 37.6 09/16/19 06:30 Monocytes % 7.7 09/16/19 06:30 Eosinophils % 2.6 09/16/19 06:30 Basophils % 0.4 09/16/19 06:30 Absolute Neutrophils 3.58 k/cumm (1.2-6.7) 09/16/19 06:30 Absolute Lymphocytes 2.62 k/cumm (1.2-3.4) 09/16/19 06:30 Absolute Monocytes 0.54 k/cumm (0.11-0.7) 09/16/19 06:30 Absolute Eosinophils 0.18 k/cumm (0.0-0.7) 09/16/19 06:30 Absolute Basophils 0.03 k/cumm (0.0-0.2) 09/16/19 06:30 PT 10.1 sec (9.3-11.0) 09/15/19 12:15 INR 1.0 (0.9-1.1) 09/15/19 12:15 APTT 23.9 sec (21.0-31.4) 09/15/19 12:15 Sodium 145 mmol/L (136-145) 09/16/19 06:30 Potassium 4.2 mmol/L (3.5-5.1) 09/16/19 06:30 Chloride 110 mmol/L (98-107) H 09/16/19 06:30 Carbon Dioxide 24.9 mmol/L (21.0-32.0) 09/16/19 06:30 Anion Gap 10.1 mmol/L (3-11) 09/16/19 06:30 BUN 16 mg/dL (7-18) 09/16/19 06:30 Creatinine 1.06 mg/dL (0.55-1.02) H 09/16/19 06:30 Estimated GFR/1.73 m2 50.81 (mL/min/1.73m2) 09/16/19 06:30 Glucose 94 mg/dL (74-106) 09/16/19 06:30 Calcium 8.5 mg/dL (8.5-10.1) 09/16/19 06:30 Magnesium 1.7 mg/dL (1.8-2.4) L 09/16/19 06:30 Total Bilirubin 0.4 mg/dL (0.2-1.0) 09/15/19 11:45 AST 20 U/L (15-37) 09/15/19 11:45 ALT 28 U/L (14-59) 09/15/19 11:45 Alkaline Phosphatase 111 U/L (46-116) 09/15/19 11:45 Troponin I < 0.05 ng/Ml (<0.06) 09/15/19 20:40 Total Protein 7.5 g/dL (6.4-8.2) 09/15/19 11:45 Albumin 4.0 g/dL (3.4-5.0) 09/15/19 11:45 Triglycerides 68 mg/dL (<150) 09/16/19 06:30 Total Cholesterol 177 mg/dL (<200) 09/16/19 06:30 LDL Cholesterol, Calc 93 mg/dL 09/16/19 06:30 HDL Cholesterol 71 mg/dL (40-60) H 09/16/19 06:30 Vitamin B12 599 pg/mL (193-986) 09/16/19 06:30 TSH 1.62 uIU/mL (0.36-3.74) 09/16/19 06:30 Urine Color Yellow (Yellow) 09/15/19 11:55 Urine Clarity Clear (Clear) 09/15/19 11:55 Urine pH 6.0 (5-8) 09/15/19 11:55 Ur Specific [place] <= 1.005 (1.005-1.025) 09/15/19 11:55 Urine Protein Negative mg/dL (Negative) 09/15/19 11:55 Urine Ketones Negative mg/dL (Negative) 09/15/19 11:55 Urine Blood Negative (Negative) 09/15/19 11:55 Urine Nitrite Negative (Negative) 09/15/19 11:55 Urine Bilirubin Negative (Negative) 09/15/19 11:55 Urine Urobilinogen 0.2 EU/dL (Up TO 0.2) 09/15/19 11:55 Ur Leukocyte Esterase Trace (Negative) H 09/15/19 11:55 Urine RBC Negative HPF (0-2) 09/15/19 11:55 Urine WBC 0-2 HPF (0-5) 09/15/19 11:55 Ur Epithelial Cells Rare HPF (Negative) 09/15/19 11:55 Urine Crystals Negative HPF (Negative) 09/15/19 11:55 Urine Bacteria Few HPF (Negative) 09/15/19 11:55 Urine Casts Negative LPF (Negative) 09/15/19 11:55 Urine Mucus Negative (Negative) 09/15/19 11:55 Urine Other Few transitional (Negative) 09/15/19 11:55 Ur Culture Indicated? C&s done as ordered 09/15/19 11:55 Urine Glucose Negative mg/dL (Negative) 09/15/19 11:55 Patient ABO/Rh O Positive 09/15/19 12:26 Antibody Screen Negative 09/15/19 12:26
--- NOTE | 2019-09-16 17:09 | INITIAL_ITS ---
- If Service Date Differs Date of service: 09/16/19 Time of Service: 17:09 Care Management Initial Assess REASON FOR HOSPITALIZATION:: Dizziness, ataxia, vertigo PAST MEDICAL HISTORY/PAST SURGICAL HISTORY:: Medical History. Benign paroxysmal positional vertigo, anxiety, dizziness, dvt prophylaxis, URI, seborrheic keratosis, congenital ptosis, history of bilateral ligation of fallopian tubes, papanicolaou smear of vagina with atypical squamous cells of undetermined significance, hypertension, gastroesophageal reflux disease, adjustment disorder with depressed mood, allergic rhinitis, cholelithiasis, diverticula of colon, essential hypertension, gastric motor function disorder, hyperlipidemia, abnormal mammography, obesity, polyp of colon. Surgical History. Ligation of fallopian tube PREVIOUS FUNCTIONAL STATUS/SOCIAL/FAMILY SUPPORTS:: Vangie lives alone in [place] in a single floor mobile home. She has three adult children, four grandchildren and two great grandchildren, who all live in the area. She identifies her children as supports. She is independent at baseline. CURRENT FUNCTIONAL STATUS:: Vangie was lying in her bed when CM met with her. She reported that she was feeling better than she was upon admission. She stated that she has had some testing done today and is waiting for the provider to talk to her about the results. CM will continue to follow. ADVANCE DIRECTIVES:: None on file. Has patient been provided with information about the portal?: No Did the patient sign up for the portal?: No CODE STATUS:: Full Code INSURANCE COVERAGE / FINANCIAL ISSUES:: [employer]IS[employer]/ MCR Replacement CURRENT HOME/COMMUNITY SERVICES/EQUIPMENT:: Vangie does not currently have any services or equipment. PRIMARY CARE PHYSICIAN:: Haseeb Estrada POTENTIAL DISCHARGE NEEDS:: Evaluations for further needs, follow up appointments PATIENT/FAMILY EDUCATION NEEDS:: Review discharge instructions, discussion of self care needs including Ask Me Three ANTICIPATED BARRIERS TO DISCHARGE:: None identified at this time. TRANSPORTATION:: Vangie's daughter, Tracy will drive her home via private vehicle when ready. PLAN:: Anticipate Vangie will return home when medically cleared, possibly tomorrow. Her daughter, Tracy will drive her home via private vehicle when ready. She will follow up with her PCP, as recommended.
[2019-09-16] MEDS: Enoxaparin 40 MG/0.4 ML SYR SC (18:35)
[2019-09-17 03:29] VITALS: BP 127/75; PULSE 72; RESP 17; TEMP 36.5; O2SAT 96
[2019-09-17 07:22] VITALS: BP 149/63; PULSE 83; RESP 17; TEMP 36.6; O2SAT 97
[2019-09-17] MEDS: Aspirin E.C. 81 MG TABEC PO (07:51)
[2019-09-17] MEDS: Omeprazole 10 MG CAPCR PO (07:51)
[2019-09-17] MEDS: Magnesium Oxide 400 MG TAB PO (07:51)
[2019-09-17] MEDS: Cholecalciferol (Vitamin D3) 1,000 UNIT TAB 1000 UNITS PO (07:51)
[2019-09-17] MEDS: Acetaminophen 325 MG TAB PO (08:04)
--- NOTE | 2019-09-17 09:37 | W.PM.DS.N ---
Date of service: 09/17/19 Time of Service: 09:37 DS: Diagnosis Discharge Diagnosis (1) Benign paroxysmal positional vertigo: Start date: 09/17/19 Start time: 09:38 Status: Acute Asessment and Plan: Echo with no abnormality, CT no abnormality,lipid panel unremarkable. BPV will treat with meclizine. (2) Anxiety: Status: Chronic (3) Hypertension: Status: Chronic (4) Hyperlipidemia: Status: Acute (5) Gastroesophageal reflux disease: Status: Chronic (6) DVT prophylaxis: Status: Acute (7) Discharge planning issues: Status: Acute Discharge Plan Disposition Patient Disposition: HOME Condition: Improving Discharge Details Chief Complaint: Dizzy/Sync Clinical Impression: Gait instability Reason For Visit: DIZZINESS, ATAXIA, VERTIGO VS CVA Admit Date/Time: 09/15/19 14:28 Admit Provider: Isabell Millan Attending Provider: Isabell Millan Primary Care Provider: Haseeb Estrada ED Provider: Leigh Eller Hospital Course Hospital Course: 74 y.o female with PMH of HTN, anxiety admitted from [facility] ED for dizziness upon waking in the middle of the night. Labs and imaging in the ED were unremarkable. Ms. Webb was admitted for further work up to r/o CVA vs. BPV. CT head and MRI were negative. Echo was without abnormality. Carotid u/s with no abnormality. Telemetry with SR. PT worked with her performing Jay-hallpike maneuver which appeared to relieve symptoms. She is ready for discharge today and will be discharged home with meclizine for future vertigo spells. Today her dizziness has subsided and she feels well she denies CP, SOB, N/V/D. Home Meds and New Rx's Prescriptions: New meclizine 25 mg Tablet 25 mg PO TID PRN PRNQty: 15 RF: 0 Continued Shingrix Adjuvant Component-PF suspension 0.5 ml IM DAILY Qty: 0.5 RF: 1 diclofenac potassium 50 mg tablet 50 mg PO TID PRN (Reason: pain) Qty: 30 RF: 1 fexofenadine 180 mg tablet 180 mg PO DAILY PRN (Reason: seasonal allergy) Qty: 30 RF: 2 multivitamin 1 EACH capsule 1 ea PO DAILY RF: 0 cholecalciferol (vitamin D3) 1,000 UNIT tablet 1 tab PO DAILY Qty: 90 RF: 3 lorazepam 0.5 mg tablet 0.5 mg PO QD-BID PRN (Reason: anxiety) Qty: 14 RF: 0 telmisartan 80 mg tablet 40 mg PO DAILY Qty: 45 RF: 3 Discharge Instructions Instructions: Meniere Disease (DC), Vertigo (DC), Benign Paroxysmal Positional Vertigo (DC), Dizziness (GEN) Additional Instructions: Take meclizine as needed for dizzy spells Follow up with PCP in 2 weeks. Activity:: Activity as Tolerated Equipment/Supplies:: No Equipment Needed Diet:: As Tolerated Discharge Orders Discharge Orders: Discharge Order (Routine); Ordered 09/17/19 Ordered By: Seema Bah DS: Summary Status at Discharge Functional status at discharge: independent ambulation Overall status at discharge: patient is back to baseline Mental Status: mental status grossly normal Speech and Movement: speech and movement normal Mood: congruent mood Affect: normal affect Exam Narrative Exam Narrative: Const: Pleasant stated for age female, lying in bed. NAD HENMT: No lymphedema, no visible goiter or thyroid.TM visible, shiny, pink bilaterally Eyes: EOMI, PERRLA Resp: Even unlabored. LCTAB. Able to speak complete sentences Cardio: RRR no murmur or gallop appreciated GI: abd soft, nontender. No pain with palpation : no cva tenderness, genital exam deferred. Back/Spine: normocurvature of the spine Skin: intact, MMM Extrem: FROM to all extremities Psych: appropriate mood and AAO x 3 Psych Mental Status: mental status grossly normal Speech and Movement: speech and movement normal Mood: congruent mood Affect: normal affect DS: Data Vitals/I&O Vitals and I&O: Vital Signs Temperature 36.6 C 09/17/19 07:22 Temperature Source Tympanic 09/17/19 07:22 Pulse 83 09/17/19 07:22 Pulse Rhythm Regular 09/17/19 07:54 Respiratory Rate 17 09/17/19 07:22 Respiratory Effort Non-Labored 09/17/19 07:54 Respiratory Depth Normal 09/17/19 07:54 Respiratory Pattern Normal 09/17/19 07:54 Blood Pressure 149/63 H 09/17/19 07:22 Blood Pressure Position Sitting 09/15/19 11:11 Pulse Oximetry 97 09/17/19 07:22 Oxygen Delivery Method Room Air 09/17/19 07:22 Oxygen Flow Rate 0 09/17/19 07:22 Pain Level 2 09/17/19 08:04 Intake & Output 09/16/19 09/16/19 09/17/19 11:59 23:59 11:59 Intake Total 1280 / 2827.5 1547.5 / 2827.5 150 / 150 Output Total 1300 / 2075 775 / 2075 900 / 900 Balance -20 / 752.5 772.5 / 752.5 -750 / -750 Weight 92.9 kg 91.6 kg Intake: IV 1280 / 2387.5 1107.5 / 2387.5 Oral 440 / 440 150 / 150 Output: Urine 1300 / 2075 775 / 2075 900 / 900 Other: Urine Color Yellow Yellow Pale Yellow Urine Appearance Clear Clear Clear Voiding Methods Bedpan Toilet Toilet Data Completed and Pending Completed studies during hospitalization [Text1]: Exam(s) a CT:CT head wo EXAM: CT HEAD WO CLINICAL HISTORY: unsteady gait, left arm weakness r/o stroke TECHNIQUE: The study was performed according to the usual protocol. COMPARISON: No exams were available for comparison FINDINGS: The ventricles and sulci are consistent with the patient's age. No acute intracranial hemorrhage, midline shift or mass effect is present. The ventricles are intact. The basilar cisterns are patent. Visualized paranasal sinuses are clear as are the mastoid air cells. The calvarium is intact. IMPRESSION: No acute intracranial process. These findings were discussed with the emergency department on the date of the examination. Exam(s) a MRI:MR brain wo EXAM: MR BRAIN WO CLINICAL HISTORY: DIZZINESS, ATAXIA TECHNIQUE: Multiplanar multisequence MRI of the brain was performed. COMPARISON: No exams were available for comparison FINDINGS: VENTRICLES AND EXTRA AXIAL SPACES: Normal in size and morphology for the patient's age. HEMORRHAGE: None. CEREBRAL PARENCHYMA: No focus of restricted diffusion to suggest acute infarct. No space-occupying lesion identified. There are a few scattered foci of hyperintense signal on the FLAIR and T2 weighted images. These likely reflect small vessel ischemic disease. MIDLINE SHIFT: None. BRAINSTEM/CEREBELLUM: Unremarkable. CALVARIUM: Unremarkable. VISUALIZED PARANASAL SINUSES/MASTOIDS: Clear. OTHER FINDINGS: There is a normal flow void in the [place] of Renee. There is a partially empty sella. IMPRESSION: No acute intracranial process. No findings to suggest an acute infarct. FINDINGS: Carotid Arteries: Petrous: Normal. Cavernous: Normal. Cerebral: Normal. Middle Cerebral Arteries: Right: No aneurysm, occlusion or significant stenosis. Left: No aneurysm, occlusion or significant stenosis. Anterior Cerebral Arteries: Right: No aneurysm, occlusion or significant stenosis. Left: No aneurysm, occlusion or significant stenosis. Posterior cerebral arteries: Right: There is origin. No aneurysm, occlusion or significant stenosis. Left: No aneurysm, occlusion or significant stenosis. Vertebral Arteries: Right: No aneurysm occlusion or significant stenosis. Left: No aneurysm, occlusion or significant stenosis. . Basilar Artery: No aneurysm, occlusion or significant stenosis. Small Vessels: No evidence of beading. IMPRESSION: No acute abnormality. EXAM: Comprehensive 2D, Doppler, and color-flow Echocardiogram Patient Location: In-Patient Slitting And Shipping Supervisor: Eveline Linton RDCS () Rhythm: NSR Indications: SUSPECTED CVA, WITH BUBBLE STUDY PLEASE! Conclusion Normal LV wall thickness and chmber size EF is 60 -65%. Wall motion is normal There is no chamber enlargement There is no significant valvular disease Bubble study is negative for intracardiac shunt Wall motion Left Ventricle The left ventricle is normal size. The left ventricular systolic function is normal. The left ventricular ejection fraction is within the normal range. Asymmetric septal thickening is noted. Mild basal septal hypertrophy is present. no provocable obstructions were found. There is normal LV segmental wall motion. abnormal relax with valsalva Transmitral Doppler flow pattern suggests impaired LV relaxation. LVEF is estimated to be 60-65%. Right Ventricle The right ventricle is normal size. The right ventricular systolic function appears normal. Right ventricle is hypertrophied. Atria The left atrium size is top normal. The right atrium size is normal. Aortic Valve Aortic valve is trileaflet. There is no aortic valvular stenosis. No aortic regurgitation is present. Mitral Valve Mitral valve leaflets are mildly thickened. Trivial to mild mitral regurgitation. Tricuspid Valve Tricuspid valve leaflets are mildly thickened but open well. Trivial to mild tricuspid regurgitation. Pulmonic Valve Pulmonic valve is not well visualized. Trace pulmonic regurgitation. Great Vessels The aortic root is normal in size. The ascending aorta is mildly dilated at 3.8cm. IVC is normal in size and collapses >50% with inspiration. Pericardium Anterior epicardial fat pad is present. Exam(s) a US:US carotid EXAM: US CAROTID CLINICAL HISTORY: suspected CVA TECHNIQUE: Ultrasound performed using standard protocol. COMPARISON: US ECHOCARDIOGRAM from 09/16/2019 FINDINGS: Duplex evaluation of the carotid circulation was performed according to the usual protocol. There is little if any visible atheromatous plaque in the carotid circulation. Flow velocities in common internal and external carotid arteries are within normal limits bilaterally. There is bilateral antegrade vertebral flow. IMPRESSION: No evidence of a hemodynamically significant carotid stenosis. [facility] Surgical History Ligation of fallopian tube Family History Mother Essential hypertension Personal history of malignant neoplasm COLON Father Diabetes Essential hypertension Sister No problems noted. Brother , SUICIDE at age 74. Personal history of malignant neoplasm BLADDER Depression Sister Personal history of malignant neoplasm Social History Smoking/Tobacco Use Status: Never Alcohol Intake: never Drug use: Never
--- NOTE | 2019-09-17 11:06 | PDOC.CMDIS ---
- If Service Date Differs Date of service: 09/17/19 Time of Service: 11:06 LACE Index Scoring Tool - Questions: Length of Stay (in days): 3 Acuity (Admit via E.D.?): Yes E.D. Visits: 1 - Answers: Total Score: 7 Risk of Readmission: Low Risk Care Management Discharge Reason for Hospitalization: Dizziness, ataxia, vertigo Discharge Plan: Vangie will return home with no additional services at this time. Her daughter, Tracy, will drive her home via private vehicle. She will follow up with her PCP, as recommended. She is agreeable to the plan. Patient/Family Education Needs: Review discharge instructions regarding activity levels and medication, discussion of self care needs including Ask Me Three
--- NOTE | 2019-09-20 16:00 | PT.INDS ---
Date of service: 09/20/19 Time of Service: 16:00 PT Notes Visit Reasons: DIZZINESS, ATAXIA, VERTIGO VS CVA Inpatient Physical Therapy Discharge Summary Dates: 09/20/2019 Dates of Service: 09/16/2019 through 09/17/2019 This is a clinical summary of care provided on the duration of dates listed above. No charge was made in the completion of this documentation. Referring Doctor: Isabell Millan MD PT Orders: PT CONSULT: Limited ability Precautions: Fall. Standard. Activity as tolerated. Patient Profile/Admitting Diagnosis: Patient is a 74-year-old female who presented to the ED on 09/15/2019 with chief complaints of lightheadedness, feeling off balance and unsteady gait. Patient is diagnosed with dizziness, anxiety, and hyperlipidemia. PMHX: Surgical History Ligation of fallopian tube Social History/Home Situation: Patient lives alone in an apartment with 3 steps to enter and rails on both sides. She is independent with all aspects of ADLs without the need for an assistive device or adaptive equipment. Equipment Owned/DME: None Subjective: Patient looks forward to going home today. She reports sighnificantly improved sense of balance and is happy that she can walk without an assistive device without any complaint of lightheadedness nor loss of balance. Objective: General Observation: Patient seen resting in bed. Bilateral TEDS on. Mental Status: Alert and oriented x4 Pain: None reported ROM: Right Upper Extremity: Shoulder Flexion WFL. Shoulder abduction WFL. Elbow flexion WFL. Wrist flexion WFL. Opening and closing of hand WFL. Left Upper Extremity: Shoulder Flexion WFL. Shoulder abduction WFL. Elbow flexion WFL. Wrist flexion WFL. Opening and closing of hand WFL. Right Lower Extremity: Hip flexion WFL. Hip abduction WFL. Knee flexion WFL. Ankle dorsiflexion WFL. Ankle plantarflexion WFL. Left Lower Extremity: Hip flexion WFL. Hip abduction WFL. Knee flexion WFL. Ankle dorsiflexion WFL. Ankle plantarflexion WFL. Strength: Right Upper Extremity: Shoulder flexors 5/5. Shoulder abductors 5/5. Elbow flexors 5/5. Elbow extensors 5/5. Project Controls Specialist strong. Left Upper Extremity: Shoulder flexors 5/5. Shoulder abductors 5/5. Elbow flexors 5/5. Elbow extensors 5/5. Project Controls Specialist strong. Right Lower Extremity: Hip flexors 4/5. Hip abductors 4/5. Knee flexors 5/5. Knee extensors 4/5. Ankle dorsiflexors 5/5. Ankle plantarflexors 5/5. Left Lower Extremity:Hip flexors 4/5. Hip abductors 4/5. Knee flexors 5/5. Knee extensors 4/5. Ankle dorsiflexors 5/5. Ankle plantarflexors 5/5. Sensation: Intact as to pain and pressure on bilateral lower extremities. Bed Mobility/Transfers: Rolling independent Supine to sit independent Sit to supine independent Sit to stand independent Stand to sit independent Bed to chair independent Chair to bed independent Gait: 300 feet without AD with no complaints of lightheadedness. Patient is also able tolerate three 4-inch steps and two 6-inch steps while holding onto B rails independently. 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 She tolerated 3 Gufoni maneuvers that started with mild lightheadedness that resolved and disappeared on the third maneuver. Patient does not present with clinical signs and symptoms that initially led to impairment level findings on initial evaluation. Subsequently, patient no longer demonstrates with functional limitations seen on initial evalaution as well. Goals: Goals X1 week 1. Supine-Sit independent MET 2. Sit-Supine independent MET 3. Sit-Stand independent MET 4. Stand-Sit independent MET 5. Bed-Chair independent MET 6. Chair-Bed independent MET 7. Independent gait on level surface with use of least restrictive device for at least 300 feet without report of pain nor dyspnea MET 8. Independent stair negotiation while holding onto bilateral rails for at least 5 steps without report of pain nor dyspnea. MET 9. Independent with home exercise program MET 10. Good static and dynamic standing balance/tolerance MET Plan of Care/Treatment Plan: Patient was provided with 1 treatment of liquid phoneme maneuver as she is unable to tolerate a second 1 at this time she did agree to having it done again this afternoon hopefully before she leaves. 1-2x/day, 7 days/week x 1 week. Plan of care has been reviewed with the MOTION STUDY ANALYST providing the service under Physical Therapy direction. Initiate Physical Therapy intervention for strengthening, bed mobility, transfers, gait, stairs, balance training, use of assistive device. DISCHARGE RECOMMENDATIONS: May discharge to home once medically cleared. Continue with outpatient physical therapy services for management of left apogeotrophic horizontal canalithiasis resulting to benign paroxysmal positional vertigo in order to facilitate return to unrestricted ADL performance at home and in the community. TREATMENT CODE/TIME: 16063 x 30 minutes beginning at 9:46 AM. Thank you very much for this referral. Christine Lopez PT, DPT, CLT [facility] [place], [place]
== END 2019-09-17 11:05 | disposition home or self-care (01) ==
LOC: ER 15:07 → MS 15:12
PROVIDERS: Admitting Provider Internal Medicine; Emergency Provider Physician Assistant; PCP Family Medicine; Visit Provider Family Medicine
DX: H81.12 Benign paroxysmal vertigo, left ear (principal); F41.9 Anxiety disorder, unspecified; I10 Essential (primary) hypertension; E78.5 Hyperlipidemia, unspecified; K21.9 Gastro-esophageal reflux disease without esophagitis
CPT/HCPCS: 36415; 36416; 70544; 80048; 80053; 80061; 82962; 86850; 86900; 86901; 93005; 93306; 96360; 97162; 97530; 99223; 99225; 99239; 99285; J1650; 70450; 70551; 81003; 81015; 82607; 83735; 84443; 84484; 85025; 85610; 85730; 87086; 93010; 93880; 99217; 99220; G0378

== ENCOUNTER 2020-02-08 00:31 | Outpatient (CLI) | payer OTHER, MEDICAID, SELFPAY ==
--- NOTE | 2020-02-08 12:19 | DI.MAMMO_ITS ---
EXAM: MG MAMMO SCREENING CLINICAL HISTORY: screening,Z12.39 TECHNIQUE: Bilateral full field digital CC and MLO mammographic images were obtained with 3D tomosyn thesis and utilizing computer aided detection (CAD). COMPARISON: Available for comparison. FINDINGS: Masses/Architectural Distortion: There is a small asymmetric density in the outer left breast seen on the craniocaudad view. This area should be further evaluated with spot compression views. Spot com pression in the mediolateral oblique view should also be obtained. Microcalcifications: No suspicious pleomorphic-type are seen. Skin Thickening/Nipple Retraction: None. IMPRESSION: 1. Asymmetric density in the outer left breast seen on the craniocaudad view. 2. This area should be further evaluated with spot compression views. Ultrasound may be indicated at that time. BI-RADS Category 0 - Assessment Incomplete: Need additional imaging evaluation Breast Density - Category B - Scattered areas of fibroglandular density A negative radiographic report should not delay biopsy if a dominant or clinically suspicious mass is present. Up to ten percent of cancers are not identified on mammography. A negative report may reinforce clinical impression. Adenosis and dense breasts may obscure an underlying neoplasm. False positive reports average 6 to 10%. Patient will receive a letter notifying them of these results.
== END 2020-02-08 00:51 ==
PROVIDERS: PCP Family Medicine; Visit Provider Family Medicine
DX: Z12.31 Encounter for screening mammogram for malignant neoplasm of breast (principal); R92.8 Other abnormal and inconclusive findings on diagnostic imaging of breast
CPT/HCPCS: 77063; 77067

== ENCOUNTER 2020-02-15 00:57 | Outpatient (CLI) | payer OTHER, MEDICAID, SELFPAY ==
--- NOTE | 2020-02-15 14:55 | DI.US_ITS ---
EXAM: US BREAST LT LIMITED CLINICAL HISTORY: F/U ABNL MAMMO, ASYMMETRIC DENSITY OUTER LEFT BREAST. TECHNIQUE: Craniocaudal and mediolateral oblique Full Field Digital Mammography views of the breast with Computer Aided Diagnosis followed by Tomosynthesis and breast ultrasound. COMPARISON: MG DIAGNOSTIC LEFT MAMMO DIGITAL from 03/08/2013 MG Screening Bilat Mammo from 03/06/2014 MG Screening Bilat Mammo from 02/21/2016 MG MG MAMMO SCREENING from 02/08/2020 MG MG MAMMO SCREEN CALL BACK UNI from 02/15/2020 MG MG MAMMO SCREEN CALL BACK UNI from 02/15/2020 FINDINGS: Mammography/Tomosynthesis: Masses/Architectural Distortion: Small area nodularity is seen in the lateral left breast, not defini tely identified on the MLO view.. Microcalcifictions: No suspicious pleomorphic-type are seen. Benign calcifications are again noted. Skin Thickening/Nipple Retraction: None. Breast US: Echotexture: Normal appearance of the glandular tissue. Shadowing: No suspicious foci. Cyst: 7 by 3 by 6 millimeter cyst in the 1 o'clock position 1 cm from the nipple.. Solid lesions: None seen. Ductal dilation: None. IMPRESSION: 1. No evidence of malignancy is noted. 2. Unless there is more urgent need, follow-up screening mammography is recommended, as per [place] [employer] guidelines. BI-RADS Category 2 - Benign Findings Breast Density - Category B - Scattered areas of fibroglandular density A negative radiographic report should not delay biopsy if a dominant or clinically suspicious mass is present. Up to ten percent of cancers are not identified on mammography. A negative report may reinforce clinical impression. Adenosis and dense breasts may obscure an underlying neoplasm. False positive reports average 6 to 10%. Patient will receive a letter notifying them of these results.
== END 2020-02-15 01:17 ==
PROVIDERS: PCP Family Medicine; Visit Provider Family Medicine
DX: Z12.31 Encounter for screening mammogram for malignant neoplasm of breast (principal); R92.8 Other abnormal and inconclusive findings on diagnostic imaging of breast; N60.02 Solitary cyst of left breast
CPT/HCPCS: 76642; 77063; 77067

== ENCOUNTER → 2020-04-24 13:14 | Outpatient (BNVA) | payer OTHER, MEDICAID, SELFPAY | PROVIDERS: PCP Family Medicine; Referring Provider Family Medicine; Visit Provider Surgery | DX: Z12.11 Encounter for screening for malignant neoplasm of colon (principal); Z86.010 Personal history of colon polyps ==

== ENCOUNTER 2020-05-01 06:15 | Day surgery (SDC) | payer OTHER, MEDICAID, SELFPAY ==
[2020-05-01 06:19] VITALS: BP 135/75; PULSE 92; RESP 19; TEMP 36.2; O2SAT 98
--- NOTE | 2020-05-01 06:32 | W.COLOREPORT ---
Date of service: 05/01/20 Time of Service: : Colonoscopy Report Date of procedure: 05/01/20 Pre-op diagnosis general: Hx of polyps and family history of colon cancer Post-op diagnosis procedure note: same (polyps and internal hemorrhoids) Procedure: Colonoscopy with polypectomy Surgeon: Leanne See Anesthesia proc note operative: other (General/ ASA 2/olya Grover, BON) Estimated blood loss (mL): 3 Pathology: other (Ascending colon, descending colon and sigmoid colon) Complications: None Disposition: same day Indications: Mrs. Webb is a pleasant 74 year old female seen in the office today for a colonoscopy. Her last colonoscopy was in [address] Marsh. At that time she was found to have a tubular adenoma at 80 cm, a hyperplastic polyp in the rectum and an inflammatory polyp in the sigmoid colon. She denies bowel habit changes, melena, hematochezia, unintentional weight loss, or abdominal pain. She does have a family history of colon cancer in her mother at age 92. Prep: Miralax/Dulcolax Procedure Start Time: :21 Procedure End Time: :47 Retraction Time: 17 minutes Findings: 3 small sessile adenomatous polyps Internal hemorrhoids and skin tags Procedure Description: After informed consent was obtained the patient was taken to the procedure room and placed in a left decubitous position. Monitors were applied and a time out was done. The patients name, date of , procedure, allergies to medications and metal in their body was reviewed. The patient was then sedated. Once sedated and comfortable a rectal exam was done. External exam was normal. Internal exam revealed a normal sphincter tone and no palpable masses. The scope was then introduced and retro-flexed. Grade 1 internal hemorrhoids were identified as well as skin tags. There were no masses or polyps on retro-flexion. The scope was then advanced to the cecum without difficulty. The TI and appendiceal orifice were identified. The prep was good. The scope was then slowly retracted over 17 minutes back into the rectum. Polyps were removed with cold forceps in the ascending, descending and sigoid colon. There were no diverticula. The scope was removed and the patient was woken up and taken back to Same day surgery in stable condition. The patient tolerated the procedure well and there were no immediate complications. Follow up: The patient should follow up in 5 years, if her overall health allows, unless they develop changes in bowel habits or other new gastrointestinal complaints.
--- NOTE | 2020-05-01 06:34 | W.PM.DSUDISC ---
Discharge Plan Disposition Patient Disposition: HOME Condition: Good Discharge Details Reason For Visit: Colonoscopy Attending Provider: Leanne See Primary Care Provider: Haseeb Estrada Home Meds and New Rx's Prescriptions: Continued diclofenac potassium 50 mg tablet 50 mg PO TID PRN (Reason: pain) Qty: 30 RF: 1 Shingrix Adjuvant Component-PF Suspension 0.5 ml IM DAILY Qty: 0.5 RF: 1 meclizine 25 mg tablet 25 mg PO TID PRN (Reason: dizziness) Qty: 15 RF: 0 omeprazole 20 mg tablet,delayed release (DR/EC) 20 mg PO DAILY Qty: 90 RF: 3 multivitamin 1 EACH capsule 1 ea PO DAILY RF: 0 lorazepam 0.5 mg tablet 0.5 mg PO QD-BID PRN (Reason: anxiety) Qty: 14 RF: 0 loratadine 10 mg tablet 10 mg PO DAILY PRN (Reason: allergy symptoms) Qty: 30 RF: 5 Discontinued bisacodyl [Dulcolax (bisacodyl)] 5 mg tablet,delayed release (DR/EC) 5 mg PO ONCE Qty: 4 RF: 0 polyethylene glycol 3350 17 gram powder in packet 255 g PO DAILY Qty: 15 RF: 0 No Action telmisartan 80 mg tablet 80 mg PO DAILY Qty: 90 RF: 3 Discharge Instructions Instructions: Colorectal Polyps (DC), Hemorrhoids (DC) Additional Instructions: Findings: 3 small polyps, most likely pre-cancerous Small internal hemorrhoids Follow up: 5 years Please call if you develop: fevers >101.5 Nausea or Vomiting Abdominal pain that is not transient DAY SURGERY UNIT POST ENDOSCOPY INSTRUCTIONS 1. Because there will be medication in your system for the next 24 hours, you may feel a little sleepy. Your coordination will be affected. Therefore: a. Do not drive or operate dangerous equipment for 24 hours. b. Do not drink alcohol beverages for 24 hours (not even beer). c. Plan to go home and rest for the day. 2. Generally there are no restrictions on your activity after a day or so has gone by, but you may feel a bit fatigued for a few days. 3 After you arrive home you may have a light meal and return to a normal diet as you can tolerate it without feeling sick to your stomach. 4. After surgery, you may feel pain or discomfort. This should be only transient, but if it persists please contact your doctor. 5. If there are any questions regarding the findings of your procedure, please feel free to contact your doctor. 6. If you are unable to contact your doctor with a problem, contact the hospital at [phone]. 7. Continue all your regular medications unless directed otherwise. I understand the above instructions and have no questions. Signature of Patient or Responsible Adult Escort Date/Time Name of Responsible Adult Escort Signature of Nurse Date/Time Activity:: Activity as Tolerated Diet:: High Fiber diet Discharge Orders Discharge Orders: Discharge Order (Routine); Ordered 05/01/20 Ordered By: Leanne See
[2020-05-01] MEDS: Lactated Ringers 1,000 ML 80 ML IV (06:45)
--- NOTE | 2020-05-01 07:25 | BOWEL_PTH ---
PATIENT: Vangie Webb LOC: [facility] U#:[id number] AGE/SX: 74/F ROOM: RE05/01/[address]: Leanne See MD : [id number] BED: DIS: 05/01/2020 SPEC #: [id number] RECD: 05/01/20 12:48 STATUS: YUNIOR REQ #: [id number] TORRI: 05/01/20 07:[address]: Leanne See DEPT: Surgical Specimen RECD BY: Shahrzad Craven ENTERED: 05/01/20 12:50 SP TYPE: Bowel OTHR DR: Haseeb Estrada MD Tissues: 1 - BIOPSY BOWEL 2 - BIOPSY BOWEL 3 - BIOPSY BOWEL Procedures: GROSS AND MICRO LEVEL 4 Comments: [id number]
[2020-05-01] MEDS: Hyoscyamine 0.125 MG SL/ORAL/CHEW SL (08:17)
[2020-05-01 08:24] VITALS: BP 138/82; PULSE 75; RESP 18; TEMP 36; O2SAT 95
== END 2020-05-01 09:26 | disposition home or self-care (01) ==
PROVIDERS: PCP Family Medicine; Visit Provider Surgery
PROC: 0DJD8ZZ Inspection of Lower Intestinal Tract, Via Natural or Artificial Opening Endoscopic (ICD-10-PCS; CPT 45378; principal; 2020-05-01 07:30)
DX: Z12.11 Encounter for screening for malignant neoplasm of colon (principal); Z86.010 Personal history of colon polyps; Z80.0 Family history of malignant neoplasm of digestive organs; D12.4 Benign neoplasm of descending colon; D12.2 Benign neoplasm of ascending colon; K63.5 Polyp of colon; K64.0 First degree hemorrhoids; K64.4 Residual hemorrhoidal skin tags
CPT/HCPCS: 45380; 88305; J2001; J3490

== ENCOUNTER 2020-08-18 10:30 | Emergency (ER) | payer OTHER, MEDICAID, SELFPAY ==
[2020-08-18 10:36] VITALS: BP 163/80; PULSE 101; RESP 18; TEMP 36.7; O2SAT 99
--- NOTE | 2020-08-18 10:42 | W.ED.GENAD ---
Discharge Plan Disposition Patient Disposition: HOME Condition: Good Discharge Details Clinical Impression: Floaters, Creatinine elevation Primary Care Provider: Haseeb Estrada ED Provider: Marleni Gomez Beatrice Meds and New Rx's Prescriptions: Continued diclofenac potassium 50 mg tablet 50 mg PO TID PRN (Reason: pain) Qty: 30 RF: 1 Shingrix Adjuvant Component-PF Suspension 0.5 ml IM DAILY Qty: 0.5 RF: 1 omeprazole 20 mg tablet,delayed release (DR/EC) 20 mg PO DAILY Qty: 90 RF: 3 telmisartan 80 mg tablet 80 mg PO DAILY Qty: 90 RF: 3 meclizine 25 mg tablet 25 mg PO TID PRN (Reason: dizziness) Qty: 15 RF: 0 multivitamin 1 EACH capsule 1 ea PO DAILY RF: 0 lorazepam 0.5 mg tablet 0.5 mg PO QD-BID PRN (Reason: anxiety) Qty: 14 RF: 0 loratadine 10 mg tablet 10 mg PO DAILY PRN (Reason: allergy symptoms) Qty: 30 RF: 5 Discharge Instructions Instructions: Visual Floaters (ED) Additional Instructions: Your labs are reassuring today. You were noted to be dehydrated, please encourage water intake. Your imaging showed the incidental meningioma as discussed. You may discuss this further with your primary care. I would like for you to follow-up with [facility] on Thursday, please call Thursday morning to schedule follow-up appointment. If you develop fever/chills, visual loss, eye pain, vomiting, weakness, sensation changes or other new/worsening symptoms please seek care urgently once again. Referrals: [facility] [Outside] Haseeb Estrada [Primary Care Provider] - Discharge Data Discharge Date/Time-TO BE ENTERED AT DEPARTURE: 08/18/20 14:25 Medical Decision Making Patient is a pleasant 75-year-old female presenting today with chief complaint of floaters in the right eye. She reports that she has had floaters like this historically. However, she states that typically they are more short-lived than they are currently. Today's episode began last night and been fairly persistent since then. She reports that she has discussed this previously with her newspaper inserter who felt that it was associated with age. She denies any visual changes but states that other than the floater she is not having any ocular complaints. She does wear glasses. She has not been evaluated by an newspaper inserter in 2 years. She denies any pain in the eye. However, she reports that she been having more headaches than typical and that they tend to be in the right side of her head that she is indicating the temporal region is area of discomfort. She has not noted jaw claudication. No fevers or chills. No thunderclap. Patient is not currently endorsing a headache. Patient's exam is reassuring. No neurological. Pupils are equal round and reactive. Visual boyd are intact. Extraocular moments are intact. Unable to visualize the posterior aspect of the eye. She does not have any temporal pain on exam. However, with the area of pain is likely associated visual symptoms, I did consider temporal arteritis. Plan. ESR and CRP. Patient with concern for potential stroke. Of these are positive symptoms and she has not had any visual loss, I find this less likely. Again, her neurologic exam is intact. However, I do feel that CT of her head would be appropriate as she does have new onset of headaches. She does report that she had headaches for years historically but that the location of the discomfort is new for her. Again, she is not currently endorsing a headache. Dr. Taylor ultrasound of the and there is no evidence to suggest a retinal detachment. Blood work significant for elevated creatinine at 1.33. Patient has been elevated like this historically. I did encourage water intake as BUN is also elevated. CRP and ESR were ordered and found to be negative. FINDINGS: Brain: No intra-axial or extra-axial mass or hemorrhage. No midline shift. Normal CSF spaces and cooley-white differentiation. Stable 5 mm rounded calcified process over left frontal parietal region best seen axial series 3, image 34. This is likely a small meningioma. Cerebral ventricles: No ventriculomegaly. Bones/joints: Bones are demineralized but no fracture is identified. Bilateral hyperostosis frontalis. Paranasal sinuses: Visualized sinuses are unremarkable. No fluid levels. Mastoid air cells: Visualized mastoid air cells are well aerated. Soft tissues: Stable subcutaneous calcification over the medial superior left orbit IMPRESSION: No acute findings. Discussed findings with the patient. She has been evaluated for this same issue by her newspaper inserter historically, she describes age-appropriate diagnosis. Likely associated with this etiology. She does not have temporal arteritis, her history and imaging to not suggest CVA. Her exam is reassuring. Advised close f/u with Dr. Melendez. Advised f/u with PCP for further evaluation of REHMAN. She was given strict return precautions. All of her questions and concerns were addressed, she is in agreemnt with this plan. HPI General Mode of arrival: ambulatory. Date/Time Provider Initiated Documentation: 08/18/20 10:35. Limitations to Documentation: no limitations. Information obtained by: patient and RN notes reviewed. History of Present Illness 75 year old F presents to the emergency department with the chief complaint of floaters in right eye, intermittent REHMAN (not currently), described as mild, Quality is described as aching, and is localized to the head. Patient reports no radiation. Patient started experiencing this day(s) (floaters began yesterday) and it has been intermittent. No relieving factors improve symptom(s), No exacerbating factors reported . Patient notes headaches; denies confusion, chest pain, cough, fever/chills, loss of appetite, malaise, nausea/vomiting, rash, shortness of breath and weakness. Patient did receive the following treatments prior to arrival, none Related Data Home Medications Medication Instructions Recorded Confirmed multivitamin 1 ea PO DAILY 12/30/12 08/18/20 lorazepam 0.5 mg tablet 0.5 mg PO QD-BID PRN #14 tab 11/05/18 08/18/20 diclofenac potassium 50 mg tablet 50 mg PO TID PRN #30 tab 03/02/19 08/18/20 telmisartan 80 mg tablet 80 mg PO DAILY #90 tab 09/27/19 08/18/20 meclizine 25 mg tablet 25 mg PO TID PRN #15 tab 11/01/19 08/18/20 loratadine 10 mg tablet 10 mg PO DAILY PRN #30 tab 11/07/19 08/18/20 adjuvant AS01B (PF)vial 1 of 2 0.5 ml IM DAILY #0.5 ml 11/23/19 05/25/20 omeprazole 20 mg tablet,delayed 20 mg PO DAILY #90 tab 05/25/20 08/18/20 release Previous Rx's Medication Instructions Recorded lorazepam 0.5 mg tablet 0.5 mg PO QD-BID PRN #14 tab 11/05/18 diclofenac potassium 50 mg tablet 50 mg PO TID PRN #30 tab 03/02/19 telmisartan 80 mg tablet 80 mg PO DAILY #90 tab 09/27/19 meclizine 25 mg tablet 25 mg PO TID PRN #15 tab 11/01/19 loratadine 10 mg tablet 10 mg PO DAILY PRN #30 tab 11/07/19 adjuvant AS01B (PF)vial 1 of 2 0.5 ml IM DAILY #0.5 ml 11/23/19 omeprazole 20 mg tablet,delayed 20 mg PO DAILY #90 tab 05/25/20 release Allergies Allergy/AdvReac Type Severity Reaction Status Date / Time benzonatate Allergy THROAT AND Verified 08/18/20 10:43 TONGUE SWELLING General Stated Complaint: EyeProblem RAMÓN: 3 Review of Systems Constitutional Constitutional: Reports as per HPI, Denies chills, Denies fatigue, Denies fever(s), Denies frequent falls, Reports headache(s), Denies snoring and Denies weakness Eyes Eyes: Reports as per HPI, Denies blurry vision, Reports change in vision and Denies photophobia ENT Ears, Nose, Mouth, and Throat: Denies vertigo, Reports headache(s) and Denies neck pain Cardiovascular Cardiovascular: Reports as per HPI, Denies chest pain, Denies lightheadedness, Denies radiating jaw, neck or arm pain, Denies dyspnea and Denies dyspnea on exertion Respiratory Respiratory: Reports as per HPI, Denies chest congestion, Denies cough, Denies dyspnea, Denies dyspnea on exertion, Denies snoring, Denies stridor and Denies wheezing Gastrointestinal Gastrointestinal: Reports as per HPI, Denies abdominal pain, Denies change in bowel habits, Denies nausea and Denies vomiting Musculoskeletal Musculoskeletal: Reports as per HPI, Denies back pain, Denies myalgias, Denies muscle cramps, Denies neck pain and Denies numbness Integumentary/Breasts Skin/Breast: Reports as per HPI and Denies rash Neurologic Neurologic: Reports as per HPI, Denies abnormal movements, Denies abnormal speech, Denies behavioral changes, Denies confusion, Denies vertigo, Denies frequent falls, Reports headache(s), Denies localized weakness, Denies numbness, Denies sensory deficit and Denies weakness Psychiatric Psychiatric: Denies behavioral changes and Denies confusion Endocrine Endocrine: Denies fatigue Allergic/Immunologic Allergic/Immunologic: Denies wheezing [facility] Medical History Abnormal mammography (08/20/03) right; neg. BX Adjustment disorder with depressed mood Allergic rhinitis (02/08/15) Anxiety Benign paroxysmal positional vertigo Cholelithiasis (01/16/15) Congenital ptosis Diverticula of colon Dizziness Essential hypertension (02/01/14) Foot pain, right Gastric motor function disorder Gastroesophageal reflux disease Hiatal hernia Hyperlipidemia Hypertension not well controlled Obesity Papanicolaou smear of vagina with atypical squamous cells of undetermined significance (ASC-US) (08/20/04) Right sciatic nerve pain Seborrheic keratosis bothersome to pt, so will arrange excision Sensorineural hearing loss of both ears Tubular adenoma of colon URI (upper respiratory infection) Vertigo Surgical History History of bilateral ligation of fallopian tubes S/P colonoscopy (~2013) Maximo- Tubular adenoma, Inflammatory and hyperplastic Family History Mother , age 93 Essential hypertension Colon cancer Father , age 86 Diabetes Essential hypertension Sister , age 72 No problems noted. Brother , SUICIDE at age 74. Depression Bladder cancer Sister Cancer Brother , age 60 Depression Brother , age 80 Depression Social History Smoking/Tobacco Use Status: Never Smoking risk assessment performed?: Yes Alcohol Intake: never Drug use: Never Substance use type: does not use Caregiver/Support person: No Communication Needs: Hard of Hearing Pets and animals: No Sexually active: No Do you think of yourself as: straight/heterosexual Current gender identity: female What is your relationship status?: How often do you talk on the phone with friends or family?: three or more times per week How often do you get together with friends or relatives?: once per week How often do you attend jain or yazdanism services?: decline to answer Do you belong to any clubs or organized social groups?: no Panel score (0-1 are the most socially isolated patients): 1 What type of physical activity do you participate in: decline to answer Duration: decline to answer Frequency: decline to answer Sherly/Oriental Orthodox: Scientologist Special sherly needs: No Seatbelt use: always Drive intox or ride w/intox driver engineer: No Do you feel safe at home: Yes Do you feel safe in your relationship?: Yes Exam Const General: cooperative, healthy appearing, comfortable, no acute distress, well developed and well groomed Nutritional Appearance: average body habitus and well nourished Orientation: alert, awake and oriented x3 HENMT Head: normal to inspection, no palpable skull fracture, normocephalic, atraumatic and no temporal artery tenderness Ears: hearing grossly normal bilaterally, external ears normal and TM's normal bilaterally General nose exam: external nose normal Mouth: oral mucosae normal and moist mucous membranes Throat: posterior oropharynx normal Eyes General: appearance normal, both eyes and all related structures Alignment and Position: alignment normal Periorbital: periorbital findings normal Eyelids: eyelids normal Sclera: sclerae normal Cornea: corneas normal Pupils: PERRL EOM: EOM intact bilaterally Neck Neck: normal visual inspection, full ROM, no lymphadenopathy and no meningeal signs Resp Effort & Inspection: normal respiratory effort, able to speak in complete sentences and no respiratory distress Auscultation: clear to auscultation bilaterally, no rales, no rhonchi and no wheezes Cardio Rate: regular rate Rhythm: regular rhythm Heart Sounds: S1 normal and S2 normal GI Inspection: normal to inspection and non-distended Palpation: soft, no hepatosplenomegaly, not firm, no guarding, not rigid and nontender Percussion: normal to percussion Auscultation: normal bowel sounds Back/Spine/Pelvis Cervical Spine: normal cervical lordosis and cervical ROM normal Skin General skin exam: no rashes or lesions noted Neuro General: patient alert, patient awake and patient oriented x3 Cranial Nerves: CN's II-XI intact bilaterally Cognition: normal cognition Speech: speech normal Gait: normal gait Motor: muscle tone normal throughout, strength 5/5 throughout, no pronator drift, no movement abnormalities noted and no fasciculations Sensory Exam: no sensory deficits noted Coordination: [id number] test normal, [id number]-[id number] test normal and Romberg test normal Extrem General: normal to inspection, capillary refill normal, no pedal edema and no calf tenderness Psych Appearance: grossly normal and well kempt Mental Status: mental status grossly normal Speech and Movement: speech and movement normal Course Vital Signs Vital signs: Vital Signs Temperature 36.7 C 08/18/20 10:36 Pulse 101 H 08/18/20 10:36 Respiratory Rate 18 08/18/20 10:36 Blood Pressure 163/80 H 08/18/20 10:36 Pulse Oximetry 99 08/18/20 10:36 Temperature 36.7 C 08/18/20 10:36 Temperature Source Temporal Artery Scan 08/18/20 10:36 Pulse 101 H 08/18/20 10:36 Respiratory Rate 18 08/18/20 10:36 Blood Pressure 163/80 H 08/18/20 10:36 Blood Pressure Position Sitting 08/18/20 10:36 Pulse Oximetry 99 08/18/20 10:36 Oxygen Delivery Method Room Air 08/18/20 10:36 Oxygen Flow Rate 0 08/18/20 10:36 Pain Level 7 08/18/20 10:36
[2020-08-18] MEDS: Normal Saline Flush 10 ML SYR IVP (11:10)
[2020-08-18 11:32] LABS: Abs Immature Grans 0.03 10^3/uL (0.0-0.06); Absolute Basophil Count 0.06 10^3/uL (0.0-0.2); Absolute Eosinophil Count 0.13 10^3/uL (0.0-0.7); Absolute Lymphocyte Count 2.13 10^3/uL (1.2-3.4); Absolute Monocyte Count 0.52 10^3/uL (0.1-0.8); Absolute Neutrophil Count 4.72 10^3/uL (1.2-6.7); Basophils % 0.8; Eosinophils % 1.7; HCT 41.4 % (36.0-46.0); Immature Grans % 0.4; Lymphocytes % 28.1; MCH 31.9 pg (27.0-33.0); MCHC 33.8 % (32.0-36.0); MCV 94.3 fL (80-95); Monocytes % 6.9; Neutrophils % 62.1; Nucleated RBC 0 %; Platelet Count 264 10^3/uL (130-400); RBC 4.39 10^6/uL (3.93-5.22); RDW 12.6 % (11.7-14.6); RDW-SD 43.8 fL; WBC 7.59 10^3/uL (4.4-10.8)
[2020-08-18 12:03] LABS: ALT 25 U/L (14-59); AST 15 U/L (15-37); Albumin 3.9 g/dL (3.4-5.0); Alkaline Phosphatase 112 U/L (46-116); Anion Gap 7.7 mmol/L (3-11); BUN 23 mg/dL (7-18); Bilirubin, Total 0.5 mg/dL (0.2-1.0); C-Reactive Protein 0.15 mg/dL (0.0-0.3); CO2 27.3 mmol/L (21.0-32.0); CREATININE 1.33 mg/dL (0.55-1.02); Calcium 8.9 mg/dL (8.5-10.1); Chloride 104 mmol/L (98-107); Glucose 137 mg/dL (74-106); Potassium 3.8 mmol/L (3.5-5.1); Sodium 139 mmol/L (136-145); Total Protein 7.6 g/dL (6.4-8.2)
[2020-08-18 12:37] LABS: ESR 23 mm/hr (0-30)
--- NOTE | 2020-08-18 13:15 | DI.CT_ITS ---
EXAM: CT HEAD WO CLINICAL HISTORY: new REHMAN and floater. TECHNIQUE: Imaging Protocol: Axial computed tomography images with coronal and sagittal reformatted images were created and reviewed COMPARISON: CT CT HEAD WO from 09/15/2019 FINDINGS: There is mild generalized cerebral atrophy. Incidental note is made of a 5 millimeter in diameter os seous mass arising from the inner table of the left parietal bone it consistent with osteoma or menin gioma. No evidence of acute intracranial hemorrhage, mass effect, or midline shift. The orbital structures are unremarkable. The temporal bone structures appear intact. Calvarium: Normal. Visualized Paranasal sinuses/Mastoids: Clear. IMPRESSION: No evidence of acute intracranial process. RADIATION DOSE DELIVERED: 684.15mGy.cm Total DLP 684.15mGy.cm Total DLP DATA REPOSITORY: All CT scans at this facility are submitted to the National Radiology Data Registry (NRDR) Dose Index Registry (DIR) with the [employer] (ACR). RADIATION OPTIMIZATION: All CT scans at this facility use at least one of these dose optimization te chniques: automated exposure control; mA and/or kV adjustment per patient size (includes targeted exa ms where dose is matched to clinical indication); or iterative reconstruction.
--- NOTE | 2020-08-18 13:33 | DI.VRAD_ITS ---
PROCEDURE INFORMATION: Exam: CT Head Without Contrast Exam date and time: 08/18/2020 1:15 PM Age: 75 years old Clinical indication: Other: New REHMAN ans floater TECHNIQUE: Imaging protocol: Computed tomography of the head without contrast. Radiation optimization: All CT scans at this facility use at least one of these dose optimization techniques: automated exposure control; mA and/or kV adjustment per patient size (includes targeted exams where dose is matched to clinical indication); or iterative reconstruction. COMPARISON: CT HEAD WO 09/15/2019 12:51 PM FINDINGS: Brain: No intra-axial or extra-axial mass or hemorrhage. No midline shift. Normal CSF spaces and cooley-white differentiation. Stable 5 mm rounded calcified process over left frontal parietal region best seen axial series 3, image 34. This is likely a small meningioma. Cerebral ventricles: No ventriculomegaly. Bones/joints: Bones are demineralized but no fracture is identified. Bilateral hyperostosis frontalis. Paranasal sinuses: Visualized sinuses are unremarkable. No fluid levels. Mastoid air cells: Visualized mastoid air cells are well aerated. Soft tissues: Stable subcutaneous calcification over the medial superior left orbit IMPRESSION: No acute findings. Dictated and Authenticated by: Gretta Giron MD. Ordering:MADIHA Yepez MD
[2020-08-18 14:12] VITALS: BP 154/85; PULSE 88; RESP 16; TEMP 36.7; O2SAT 99
--- NOTE | 2020-08-18 14:39 | NUR.NOTE ---
Nursing Note: Referral to [facility] for follow up . Faxed the provider note, CT report and labs. Caitlin Raygoza
== END 2020-08-18 14:25 | disposition home or self-care (01) ==
PROVIDERS: Emergency Provider Physician Assistant; PCP Family Medicine
DX: H43.391 Other vitreous opacities, right eye (principal); R51.9 Headache, unspecified; R94.4 Abnormal results of kidney function studies; E86.0 Dehydration; I10 Essential (primary) hypertension
CPT/HCPCS: 36415; 80053; 85652; 99284; 70450; 85025; 86140; 99285

== ENCOUNTER 2020-12-03 00:59 | Outpatient (CLI) | payer OTHER, MEDICAID, SELFPAY ==
--- NOTE | 2020-12-03 11:19 | DI.RAD_ITS ---
EXAM: XR KNEE LT 3V AP,LAT,KOTA CLINICAL HISTORY: left knee pain,M25.562. TECHNIQUE: 2D digital imaging was performed. COMPARISON: No exams were available for comparison FINDINGS: There is no evidence fracture nor prominent joint effusion. There are moderate degenerative changes in the medial compartment. Also in the patellofemoral compartment. Lesser degenerative changes in t he lateral compartment. No chondrocalcinosis. There is an osseous excrescence off the lateral aspec t of the tibia adjacent to the fibular head. This has benign appearance IMPRESSION: Degenerative changes as described above. Also bony excrescence off of lateral aspect of the tibia adjacent to the fibular head. DATA REPOSITORY: RADIATION DOSE DELIVERED:
== END 2020-12-03 01:19 ==
PROVIDERS: PCP Family Medicine; Visit Provider Family Medicine
DX: M17.12 Unilateral primary osteoarthritis, left knee (principal)
CPT/HCPCS: 73562

== ENCOUNTER 2020-12-04 02:36 | Outpatient (CLI) | payer OTHER, MEDICAID, SELFPAY ==
[2020-12-04 12:43] LABS: CREATININE 1.2 mg/dL (0.55-1.02); Estimated GFR 43.91 (mL/min/1.73m2)
[2020-12-04 14:03] LABS: Hemoglobin A1C 5.6 % (<5.7)
== END 2020-12-04 02:37 | disposition home or self-care (01) ==
LOC: LOS 02:36
PROVIDERS: PCP Family Medicine; Visit Provider Family Medicine
DX: I10 Essential (primary) hypertension (principal); R73.9 Hyperglycemia, unspecified
CPT/HCPCS: 36415; 82565; 83036

== ENCOUNTER → 2021-01-07 09:47 | Outpatient (BNVA) | payer OTHER, MEDICAID, SELFPAY | PROVIDERS: PCP Family Medicine; Referring Provider Family Medicine; Visit Provider Student in an Organized Health Care Education/Training Program | DX: M17.12 Unilateral primary osteoarthritis, left knee (principal); M23.92 Unspecified internal derangement of left knee | CPT/HCPCS: 20610; 99213; J1040 ==

== ENCOUNTER → 2021-02-12 15:11 | Outpatient (BNVA) | payer OTHER, MEDICAID, SELFPAY | PROVIDERS: PCP Family Medicine; Referring Provider Family Medicine; Visit Provider Student in an Organized Health Care Education/Training Program | DX: R69 Illness, unspecified (principal) ==

== ENCOUNTER 2021-02-15 03:28 | Outpatient (CLI) | payer OTHER, MEDICAID, SELFPAY ==
--- NOTE | 2021-02-15 11:20 | DI.MAMMO_ITS ---
Exam(s) MAMMO SCREENING EXAM: MAMMO SCREENING CLINICAL HISTORY: screening,Z12.39 TECHNIQUE: Mammograms were interpreted according to the usual protocol including computer analysis w [employer] CAD system, tomosynthesis and C-view imaging. COMPARISON: FINDINGS: The breasts are of moderate density with fairly symmetrical distribution of fibroglandular tissue. N o dominant mass or clumped microcalcification is identified in either breast. The current examinatio n is compared with previous examinations including January 2020 and there has been no gross interval allen ge in appearance in comparison with the prior studies. IMPRESSION: No specific evidence of malignancy at this time. Routine screening examinations are suggested at yea rly intervals in this age group according to the ACS ACR guidelines. BI-RADS Category 1 - Negative Breast Density - Category B - Scattered areas of fibroglandular density
== END 2021-02-15 03:48 ==
PROVIDERS: PCP Family Medicine; Visit Provider Family Medicine
DX: Z12.31 Encounter for screening mammogram for malignant neoplasm of breast (principal)
CPT/HCPCS: 77063; 77067

== ENCOUNTER → 2021-04-19 08:54 | Outpatient (BNVA) | payer OTHER, MEDICAID, SELFPAY | PROVIDERS: PCP Family Medicine; Referring Provider Family Medicine; Visit Provider Student in an Organized Health Care Education/Training Program | DX: M17.12 Unilateral primary osteoarthritis, left knee (principal) | CPT/HCPCS: 99213 ==

== ENCOUNTER 2021-05-20 09:06 | Outpatient (CLI) | payer OTHER, MEDICAID, SELFPAY ==
--- NOTE | 2021-05-20 08:45 | DI.RAD_ITS ---
Exam(s) XR STANDING ALIGNMENT EXAM: XR STANDING ALIGNMENT CLINICAL HISTORY: L TKA planning. TECHNIQUE: 2D digital imaging was performed. COMPARISON: No exams were available for comparison FINDINGS: The hips are well maintained. There are degenerative changes in the medial aspects of both knees wit h joint space narrowing and periarticular spurring present. The ankle joints are well maintained. T he right lower extremity measures 84 cm. The left lower extremity measures 84 cm. IMPRESSION: Osteoarthritis of the knees. DATA REPOSITORY: RADIATION DOSE DELIVERED:
== END 2021-05-20 09:07 | disposition home or self-care (01) ==
LOC: DIORS 09:06
PROVIDERS: PCP Family Medicine; Referring Provider Family Medicine; Visit Provider Student in an Organized Health Care Education/Training Program
DX: M17.12 Unilateral primary osteoarthritis, left knee (principal)
CPT/HCPCS: 99213; 77073

== ENCOUNTER 2021-12-10 03:04 | Outpatient (CLI) | payer MEDICARE, MEDICAID, SELFPAY ==
[2021-12-10 12:10] LABS: CREATININE 1.3 mg/dL (0.55-1.02); Estimated GFR 39.93 (mL/min/1.73m2); Potassium 4.5 mmol/L (3.5-5.1)
== END 2021-12-10 03:05 | disposition home or self-care (01) ==
LOC: LBO 03:04
PROVIDERS: PCP Family Medicine; Visit Provider Family Medicine
DX: I10 Essential (primary) hypertension (principal)
CPT/HCPCS: 36415; 82565; 84132

== ENCOUNTER 2022-12-23 01:57 | Outpatient (CLI) | payer OTHER, MEDICAID, SELFPAY ==
--- NOTE | 2022-12-23 07:45 | DI.MAMMO_ITS ---
Exam(s) MAMMO SCREENING EXAM: MAMMO SCREENING CLINICAL HISTORY: screening,z12.39 TECHNIQUE: Mammograms were interpreted according to the usual protocol including computer analysis w [employer] CAD system, tomosynthesis and C-view imaging. COMPARISON: 2012 through 2020 FINDINGS: The breasts are composed of scattered fibroglandular densities, Breast Density category B. No suspicious masses or suspicious microcalcifications are seen. Benign, secretory type calcificatio ns again noted bilaterally. Biopsy marker clip mid right breast. No skin thickening or abnormal axillary lymph nodes are seen. There has been no significant change from prior exams. IMPRESSION: BI-RADS Cat 2 - Benign Findings Yearly screening mammography is recommended. Breast Density - Category B, scattered fibroglandular densities. A negative radiographic report should not delay biopsy if a dominant or clinically suspicious mass is present. Up to ten percent of cancers are not identified on mammography. A negative report may reinforce clinical impression. Adenosis and dense breasts may obscure an underlying neoplasm. False positive reports average 6 to 10%. Patient will receive a letter notifying them of these results.
== END 2022-12-23 02:17 ==
LOC: DI 01:57
PROVIDERS: PCP Family Medicine; Visit Provider Family Medicine
DX: Z12.31 Encounter for screening mammogram for malignant neoplasm of breast (principal); N60.81 Other benign mammary dysplasias of right breast; N60.82 Other benign mammary dysplasias of left breast
CPT/HCPCS: 77063; 77067

== ENCOUNTER 2022-12-23 03:04 | Outpatient (CLI) | payer OTHER, MEDICAID, SELFPAY ==
[2022-12-23 12:46] LABS: Hemoglobin A1C 5.5 % (<5.7)
[2022-12-23 13:09] LABS: CREATININE 1.3 mg/dL (0.55-1.02); Calculated LDL 112 mg/dL (<100); Cholesterol 226 mg/dL (<200); Estimated GFR 42.62 (mL/min/1.73m2); HDL Cholesterol 77 mg/dL (40-60); Potassium 4.2 mmol/L (3.5-5.1); Triglyceride 189 mg/dL (<150)
== END 2022-12-23 03:05 | disposition home or self-care (01) ==
LOC: LBO 03:04
PROVIDERS: PCP Family Medicine; Visit Provider Family Medicine
DX: I10 Essential (primary) hypertension (principal); E78.5 Hyperlipidemia, unspecified; R73.9 Hyperglycemia, unspecified
CPT/HCPCS: 36415; 80061; 82565; 83036; 84132

== ENCOUNTER 2023-01-05 10:33 | Outpatient (CLI) | payer OTHER, MEDICAID, SELFPAY ==
--- NOTE | 2023-01-05 10:00 | DI.RAD_ITS ---
Exam(s) XR HIP LT AP LAT ONLY EXAM: XR HIP LT AP LAT ONLY CLINICAL HISTORY: L hip pain. TECHNIQUE: 2D digital imaging was performed. COMPARISON: CR RIGHT HIP COMPLETE from 02/03/2013 FINDINGS: Two views: There is no evidence of pelvic nor hip fracture. No hip joint space narrowing on either side. On th e additional lateral view of the left hip there is a small femoral head osteophytes. Bone density normal. No osseous lesions. IMPRESSION: Mild degenerative findings left hip as described above. DATA REPOSITORY: RADIATION DOSE DELIVERED:
--- NOTE | 2023-01-05 10:00 | DI.RAD_ITS ---
Exam(s) XR KNEE LT 3V AP,LAT,KOTA EXAM: XR KNEE LT 3V AP,LAT,KOTA CLINICAL HISTORY: L knee pain. TECHNIQUE: 2D digital imaging was performed. COMPARISON: CR XR KNEE LT 3V AP,LAT,KOTA from 12/03/2020 FINDINGS: 3 views No evidence of fracture nor significant new joint effusion. Degenerative changes previously described in the medial compartment appear unchanged. Lateral compar tment remains unremarkable. Some degenerative change in the patellofemoral compartment appears uncha nged on these views. IMPRESSION: As above. No significant radiographic change compared to 12/03/2020. DATA REPOSITORY: RADIATION DOSE DELIVERED:
== END 2023-01-05 10:34 | disposition home or self-care (01) ==
LOC: DIORS 10:33
PROVIDERS: PCP Family Medicine; Referring Provider Family Medicine; Visit Provider Student in an Organized Health Care Education/Training Program
DX: M17.12 Unilateral primary osteoarthritis, left knee; M25.752 Osteophyte, left hip; M16.12 Unilateral primary osteoarthritis, left hip
CPT/HCPCS: 20610; 73562; 73502; J1040

== ENCOUNTER 2023-01-26 20:21 | Emergency (ER) | payer OTHER, MEDICAID, SELFPAY ==
[2023-01-26] VITALS (29 sets, daily range): BP systolic 130–169; BP diastolic 65–109; PULSE 82–111; RESP 11–29; TEMP 36.7; O2SAT 83–100
--- NOTE | 2023-01-26 20:30 | RT.EKG_ITS ---
APPROVED REPORT Exam: Resting ECG Reason for Exam: chest Pain Patient Location: E HR:104 bpm ECG Measurements Heart Rate 104 AXIS PA 143 P 58 QRSd 70 QRS -20 QT 317 T 93 QTc 418 Conclusion Sinus tachycardia...rate> 99 Low voltage, precordial leads...precordial leads <1.0mV Nonspecific T abnormalities, lateral leads...T <-0.10mV, I aVL V5 V6 sinus tach, left axis, normal intervals non ischemic
--- NOTE | 2023-01-26 20:45 | DI.CT_ITS ---
Exam(s) CT CHEST PE CTA EXAM: CT CHEST PE CTA CLINICAL HISTORY: chest pain and shortness of breath. TECHNIQUE: Imaging Protocol: CT angiography of the chest was performed using pulmonary embolus mendoza col. Multi planar reconstructions were performed. CONTRAST MATERIAL: Intravenous: Omnipaque 350 Contrast volume: 100 cc COMPARISON: No exams were available for comparison FINDINGS: CHEST: PULMONARY ARTERIES: There are no intraluminal filling defects to suggest acute pulmonary emboli. LUNGS: There are no confluent infiltrates nor evidence of pulmonary infarction.. There are no pleural effusions. MEDIASTINUM: There is no hilar nor mediastinal adenopathy. Visualized thyroid unremarkable. CARDIAC: Heart size is upper normal. There is no pericardial effusion.Caliber of the thoracic aorta is within normal limits. No dissection. Incidentally noted is independent origin of the left vertebr al artery off of the aortic arch. There is no significant shift of the interventricular septum. PARTIALLY VISUALIZED UPPERMOST ABDOMEN: Hypodense liver implying steatosis. The lower most image of this study reveals a density projected over the gallbladder. May be significant. Recommend follow-u p imaging of the liver and gallbladder, starting with ultrasound. No splenomegaly noted. OSSEOUS: No significant osseous lesions.No fractures.. IMPRESSION: 1. No evidence of acute pulmonary emboli. No evidence of pulmonary infarction.No pleural effusions. 2. Hepatic steatosis. No splenomegaly. No ascites in the upper abdomen. 3. The actual lower most image of this study reveals a density projected over gallbladder and liver w hich is difficult to assess on this type of study, particularly since it is not completely included i n the field of view. Further imaging recommended, starting with liver-gallbladder ultrasound. Study 1st read by [facility]. Final report and recommendations called by myself to ER physician 01/27/2023 a.m. RADIATION DOSE DELIVERED: 464.37mGy.cm Total DLP DATA REPOSITORY: All CT scans at this facility are submitted to the National Radiology Data Registry (NRDR) Dose Index Registry (DIR) with the [employer] (A[employer]). RADIATION OPTIMIZATION: All CT scans at this facility use at least one of these dose optimization te chniques: automated exposure control; mA and/or kV adjustment per patient size (includes targeted exa ms where dose is matched to clinical indication); or iterative reconstruction.
[2023-01-26 21:03] LABS: Abs Immature Grans 0.03 10^3/uL (0.0-0.06); Absolute Basophil Count 0.08 10^3/uL (0.0-0.2); Absolute Eosinophil Count 0.29 10^3/uL (0.0-0.7); Absolute Lymphocyte Count 3.86 10^3/uL (1.2-3.4); Absolute Monocyte Count 0.81 10^3/uL (0.1-0.8); Absolute Neutrophil Count 3.82 10^3/uL (1.2-6.7); Basophils % 0.9; Eosinophils % 3.3; HCT 39.6 % (36.0-46.0); HGB 13.4 g/dL (11.2-15.7); Immature Grans % 0.3; Lymphocytes % 43.4; MCH 31.7 pg (27.0-33.0); MCHC 33.8 % (32.0-36.0); MCV 94 fL (80-95); MPV 9.9 fL (8.0-11.0); Monocytes % 9.1; Platelet Count 241 10^3/uL (130-400); RBC 4.23 10^6/uL (3.93-5.22); RDW 12.9 % (11.7-14.6); RDW-SD 43.8 fL; WBC 8.89 10^3/uL (4.4-10.8)
[2023-01-26 21:20] LABS: ALT 33 U/L (14-59); AST 24 U/L (15-37); Albumin 3.8 g/dL (3.4-5.0); Alkaline Phosphatase 124 U/L (46-116); Anion Gap 7.8 mmol/L (3-11); BUN 26 mg/dL (7-18); Bilirubin, Total 0.4 mg/dL (0.2-1.0); CO2 30.2 mmol/L (21.0-32.0); CREATININE 1.4 mg/dL (0.55-1.02); Calcium 9.2 mg/dL (8.5-10.1); Chloride 104 mmol/L (98-107); Estimated GFR 38.99 (mL/min/1.73m2); Glucose 130 mg/dL (74-106); Potassium 4.3 mmol/L (3.5-5.1); Sodium 142 mmol/L (136-145); Total Protein 7.3 g/dL (6.4-8.2)
[2023-01-26 21:31] LABS: Lipase 47 U/L (16-77); NT-proBNP 32 pg/mL (<300); Troponin I < 50 ng/L (<or=60)
[2023-01-26] MEDS: Normal Saline 500 ML IV (21:41)
[2023-01-26] MEDS: Normal Saline Flush 10 ML SYR IVP (21:45)
[2023-01-26] MEDS: Normal Saline - Diluent 50 ML VIAL IJ (21:46)
[2023-01-26] MEDS: Omnipaque 350 MG/ML 100 ML BTL IJ (21:46)
[2023-01-26 22:02] LABS: COVID-19 PCR Negative (Negative); Influenza A PCR Negative (Negative); Influenza B PCR Negative (Negative); RSV PCR Negative (Negative)
[2023-01-26 22:04] LABS: Source Nasopharynx
--- NOTE | 2023-01-26 23:03 | DI.VRAD_ITS ---
PROCEDURE INFORMATION: Exam: CTA Chest With Contrast Exam date and time: 01/26/2023 9:48 PM Age: 77 years old Clinical indication: Other: Chest pain and shortness of breath TECHNIQUE: Imaging protocol: Computed tomographic angiography of the chest with contrast. 3D rendering (Not supervised by radiologist): MIP and/or 3D reconstructed images were created by the technologist. Radiation optimization: All CT scans at this facility use at least one of these dose optimization techniques: automated exposure control; mA and/or kV adjustment per patient size (includes targeted exams where dose is matched to clinical indication); or iterative reconstruction. Contrast material: OMNIPAQUE 350; Contrast volume: 100 ml; Contrast route: INTRAVENOUS (IV); COMPARISON: No relevant prior studies available. FINDINGS: Pulmonary arteries: Normal. No pulmonary emboli. Aorta: Unremarkable. No aortic aneurysm. No aortic dissection. Lungs: Unremarkable. No consolidation. No masses. Pleural spaces: Unremarkable. No pneumothorax. No pleural effusion. Heart: Unremarkable. No cardiomegaly. No pericardial effusion. Lymph nodes: Unremarkable. No enlarged lymph nodes. Bones/joints: Moderate degenerative changes noted throughout the thoracic spine. No acute fracture. Soft tissues: Unremarkable. IMPRESSION: No evidence of pulmonary embolus or other acute abnormality in the chest Dictated and Authenticated by: Leoncio Andrew MD. Ordering:ADIA Markham MD
--- NOTE | 2023-01-26 23:11 | ED.GENADUL_ITS ---
Discharge Plan Disposition Patient Disposition: Home Condition: Good Discharge Details Clinical Impression: Upper back pain on left side Primary Care Provider: Haseeb Estrada ED Provider: Bev Taylor Home Meds and New Rx's Prescriptions: Continued Shingrix Adjuvant Component-PF Suspension 0.5 ml IM DAILY Qty: 0.5 1RF Rx Instructions: given 2nd dose 2-6 months after first loratadine 10 mg tablet 10 mg PO DAILY PRN (Reason: allergy symptoms) Qty: 30 5RF telmisartan 80 mg tablet 80 mg PO DAILY Qty: 90 3RF diclofenac potassium 50 mg tablet 50 mg PO TID PRN (Reason: pain) Qty: 30 2RF meclizine 25 mg tablet 25 mg PO TID PRN (Reason: dizziness) Qty: 15 0RF multivitamin 1 EACH capsule 1 ea PO DAILY Patient Comments: ran out No Action omeprazole 20 mg capsule,delayed release(DR/EC) 20 mg PO DAILY Qty: 30 2RF Discharge Instructions Instructions: Diet for Stomach Ulcers and Gastritis (ED), GERD (Gastroesophageal Reflux Disease) (ED), Back Pain (ED) Additional Instructions: Your blood tests, EKGs and imaging today are reassuring and show no evidence of acute concerning or significant findings. Drink plenty of fluids and get plenty of rest. You can try starting an [id number] Prilosec to take once daily for the next 2 weeks if your symptoms are possibly due to indigestion or GERD (gastroesophageal reflux disease). An order for an outpatient stress test has been placed. Please contact the radiology department to confirm scheduling of this test. Follow-up with your primary care doctor in 1 week. Return to the emergency department with any worsening or new concerning symptoms. Discharge Data Discharge Date/Time-TO BE ENTERED AT DEPARTURE: 01/27/23 01:20 Discharge Physician: Bev Taylor Medical Decision Making <PARRIS Moy - Last Filed: 01/29/23 16:11> 77-year-old female presents with pressure to left scapular region without any radiation in early afternoon Pain improved after Tylenol and a walk per patient and has not had pain since that time Given age and comorbidities, I did order a troponin, CTA, and basic labs all of which do not show evidence of acute abnormality, pending repeat troponin evaluation at 2343, if this is negative I think patient is able to be discharged home with close outpatient follow-up with outpatient stress While I cannot completely exclude cardiac etiology of patient's complaint I think her exam is reassuring and with 2 negative troponins, she is stable for discharge home at this time with close outpatient reassessment Care transitioned pending repeat troponin level at 2343 <Bev Taylor, DO - Last Filed: 01/29/23 08:29> PARRIS Saucedo 77-year-old female presents with pressure to left scapular region without any radiation in early afternoon Pain improved after Tylenol and a walk per patient and has not had pain since that time Given age and comorbidities, I did order a troponin, CTA, and basic labs all of which do not show evidence of acute abnormality, pending repeat troponin evaluation at 2343, if this is negative I think patient is able to be discharged home with close outpatient follow-up with outpatient stress While I cannot completely exclude cardiac etiology of patient's complaint I think her exam is reassuring and with 2 negative troponins, she is stable for discharge home at this time with close outpatient reassessment Care transitioned pending repeat troponin level at 2343. Dr. Taylor 2345 -- Please see PARRIS Saucedo note for initial presentation, exam and plan. Case endorsed to follow-up on repeat troponin and EKG. If troponin negative and EKG unchanged, will plan for discharge to home. 0010 --repeat troponin negative. Repeat EKG unchanged. Patient is requesting to go home. Patient is a 77-year-old female who reports an episode of left upper back pain near her scapula that started while at rest in the afternoon today and lasted a few hours and then resolved. She states the pain felt better after going for a walk and taking Tylenol. She denies any known injury, fever, cough, shortness of breath, nausea, vomiting or dizziness. She reports she has had no pain while here in the emergency department. She reports she did have indigestion last night after eating a steak and cheese sandwich with fried onion rings. She reports an acid taste in her mouth at that time but then resolved. She does not take anything for GERD. She has no report of fever, cough or shortness of breath to suggest an infectious cause. She has no report of tearing or ripping pain to suggest a dissection. Her chest pain has been nonexertional and occurred at rest and in the setting of 2 negative troponins and 2 unremarkable EKGs with a negative CT chest, I agree that it is appropriate for patient to be discharged to home with plan for outpatient stress test which has been ordered by PARRIS Saucedo. Patient is advised to start a daily [id number] Prilosec. Advised to follow up with the primary care doctor for re-evaluation. Usual and customary return precautions given prior to discharge. Medical Records Medical records reviewed: Yes I reviewed the patient's medical records. Imaging Data Radiologic Study: Radiologist's impression: CTA Chest With Contrast Exam date and time: 01/26/2023 9:48 PM Age: 77 years old Clinical indication: Other: Chest pain and shortness of breath TECHNIQUE: Imaging protocol: Computed tomographic angiography of the chest with contrast. 3D rendering (Not supervised by radiologist): MIP and/or 3D reconstructed images were created by the technologist. Radiation optimization: All CT scans at this facility use at least one of these dose optimization techniques: automated exposure control; mA and/or kV adjustment per patient size (includes targeted exams where dose is matched to clinical indication); or iterative reconstruction. Contrast material: OMNIPAQUE 350; Contrast volume: 100 ml; Contrast route: INTRAVENOUS (IV);? COMPARISON: No relevant prior studies available. FINDINGS: Pulmonary arteries: Normal. No pulmonary emboli. Aorta: Unremarkable. No aortic aneurysm. No aortic dissection. Lungs: Unremarkable. No consolidation. No masses. Pleural spaces: Unremarkable. No pneumothorax. No pleural effusion. Heart: Unremarkable. No cardiomegaly. No pericardial effusion. Lymph nodes: Unremarkable. No enlarged lymph nodes. Bones/joints: Moderate degenerative changes noted throughout the thoracic spine. No acute fracture. Soft tissues: Unremarkable. IMPRESSION: No evidence of pulmonary embolus or other acute abnormality in the chest Lab Data Lab results reviewed: Yes I reviewed the patient's lab results. Labs: Laboratory Tests Range/Units 01/26/23 01/26/23 01/26/23 20:43 20:43 20:43 WBC (4.4-10.8) 10^3/uL 8.89 RBC (3.93-5.22) 10^6/uL 4.23 Hgb (11.2-15.7) g/dL 13.4 Hct (36.0-46.0) % 39.6 MCV (80-95) fL 94 MCH (27.0-33.0) pg 31.7 MCHC (32.0-36.0) % 33.8 RDW (11.7-14.6) % 12.9 Plt Count (130-400) 10^3/uL 241 MPV (8.0-11.0) fL 9.9 Immature Gran % 0.3 Neutrophils % 43.0 Lymphocytes % 43.4 Monocytes % 9.1 Eosinophils % 3.3 Basophils % 0.9 Nucleated RBC % (0.0-0.3) % 0.0 Absolute Neutrophils (1.2-6.7) 10^3/uL 3.82 Absolute Lymphocytes (1.2-3.4) 10^3/uL 3.86 H Absolute Monocytes (0.1-0.8) 10^3/uL 0.81 H Absolute Eosinophils (0.0-0.7) 10^3/uL 0.29 Absolute Basophils (0.0-0.2) 10^3/uL 0.08 Sodium (136-145) mmol/L 142 Potassium (3.5-5.1) mmol/L 4.3 Chloride (98-107) mmol/L 104 Carbon Dioxide (21.0-32.0) mmol/L 30.2 Anion Gap (3-11) mmol/L 7.8 BUN (7-18) mg/dL 26 H Creatinine (0.55-1.02) mg/dL 1.4 H Est GFR (CKD-EPI 2020) (mL/min/1.73m2) 38.99 Glucose (74-106) mg/dL 130 H Calcium (8.5-10.1) mg/dL 9.2 Total Bilirubin (0.2-1.0) mg/dL 0.4 AST (15-37) U/L 24 ALT (14-59) U/L 33 Alkaline Phosphatase (46-116) U/L 124 H Troponin I (<or=60) ng/L < 50 NT-Pro-B Natriuret Pep (<300) pg/mL 32 Total Protein (6.4-8.2) g/dL 7.3 Albumin (3.4-5.0) g/dL 3.8 Lipase (16-77) U/L 47 COVID-19 Source SARS-CoV-2 (PCR) (Negative) Influenza Type A (PCR) (Negative) Influenza Type B (PCR) (Negative) RSV (PCR) (Negative) Range/Units 01/26/23 01/26/23 21:10 23:48 WBC (4.4-10.8) 10^3/uL RBC (3.93-5.22) 10^6/uL Hgb (11.2-15.7) g/dL Hct (36.0-46.0) % MCV (80-95) fL MCH (27.0-33.0) pg MCHC (32.0-36.0) % RDW (11.7-14.6) % Plt Count (130-400) 10^3/uL MPV (8.0-11.0) fL Immature Gran % Neutrophils % Lymphocytes % Monocytes % Eosinophils % Basophils % Nucleated RBC % (0.0-0.3) % Absolute Neutrophils (1.2-6.7) 10^3/uL Absolute Lymphocytes (1.2-3.4) 10^3/uL Absolute Monocytes (0.1-0.8) 10^3/uL Absolute Eosinophils (0.0-0.7) 10^3/uL Absolute Basophils (0.0-0.2) 10^3/uL Sodium (136-145) mmol/L Potassium (3.5-5.1) mmol/L Chloride (98-107) mmol/L Carbon Dioxide (21.0-32.0) mmol/L Anion Gap (3-11) mmol/L BUN (7-18) mg/dL Creatinine (0.55-1.02) mg/dL Est GFR (CKD-EPI 2020) (mL/min/1.73m2) Glucose (74-106) mg/dL Calcium (8.5-10.1) mg/dL Total Bilirubin (0.2-1.0) mg/dL AST (15-37) U/L ALT (14-59) U/L Alkaline Phosphatase (46-116) U/L Troponin I (<or=60) ng/L < 50 NT-Pro-B Natriuret Pep (<300) pg/mL Total Protein (6.4-8.2) g/dL Albumin (3.4-5.0) g/dL Lipase (16-77) U/L COVID-19 Source Nasopharynx SARS-CoV-2 (PCR) (Negative) Negative Influenza Type A (PCR) (Negative) Negative Influenza Type B (PCR) (Negative) Negative RSV (PCR) (Negative) Negative ECG Data Attestation: I personally reviewed and interpreted this ECG (s) as follows: Interpretation: #1 -- rate of 104, sinus, left axis, normal intervals, no stemi. #2 -- rate of 85, sinus, left axis, normal intervals, no stemi. HPI <PARRIS Moy - Last Filed: 01/29/23 16:11> General Date/Time Provider Initiated Documentation: 01/26/23 20:37 . HPI Narrative: This 77-year-old female with history of obesity, left knee pain presents with report of pain to left scapula, described as light pressure which started at rest at approximately 130. Patient states she took 2 Tylenol and went outside to go for a walk to see if the pain would go away and it did. She has not had pain since afternoon. She is unable to tell me the exact time that the pain dissipated. She denies any return of pain. She denies any pleuritic pain. She denies any calf pain or swelling or history of coagulopathy. She denies actual family history of coronary artery disease. She denies history of personal coronary events. She denies tobacco or alcohol use. She denies hyperlipidemia. She does report she has hypertension for which she takes blood pressure medication for. She has been pain-free for several hours now. Related Data Home Medications Medication Instructions Recorded Confirmed multivitamin 1 ea PO DAILY 12/30/12 01/29/23 meclizine 25 mg tablet 25 mg PO TID PRN dizziness #15 tabs 11/01/19 01/29/23 adjuvant AS01B (PF)vial 1 of 2 0.5 ml IM DAILY #0.5 mL 11/23/19 01/29/23 (Shingrix Adjuvant Component (PF) intramuscular suspension) loratadine 10 mg tablet 10 mg PO DAILY PRN allergy 12/03/21 01/29/23 symptoms #30 tabs diclofenac potassium 50 mg tablet 50 mg PO TID PRN pain #30 tabs 12/04/22 01/29/23 telmisartan 80 mg tablet 80 mg PO DAILY #90 tabs 12/04/22 01/29/23 omeprazole 20 mg capsule,delayed 20 mg PO DAILY #30 caps 01/29/23 01/29/23 release Previous Rx's Medication Instructions Recorded meclizine 25 mg tablet 25 mg PO TID PRN dizziness #15 tabs 11/01/19 adjuvant AS01B (PF)vial 1 of 2 0.5 ml IM DAILY #0.5 mL 11/23/19 (Shingrix Adjuvant Component (PF) intramuscular suspension) loratadine 10 mg tablet 10 mg PO DAILY PRN allergy 12/03/21 symptoms #30 tabs diclofenac potassium 50 mg tablet 50 mg PO TID PRN pain #30 tabs 12/04/22 telmisartan 80 mg tablet 80 mg PO DAILY #90 tabs 12/04/22 omeprazole 20 mg capsule,delayed 20 mg PO DAILY #30 caps 01/29/23 release Allergies Allergy/AdvReac Type Severity Reaction Status Date / Time benzonatate Allergy THROAT AND Verified 01/29/23 14:46 TONGUE SWELLING General Stated Complaint: Chest Pain RAMÓN: 3 PFS <PARRIS Moy - Last Filed: 01/29/23 16:11> All Active Problems (Updated 01/29/23 @ 14:58 by Haseeb Estrada MD) Back pain (Acute) Upper back pain on left side (Acute) Primary osteoarthritis of left hip (Acute) Insomnia (Acute) Obesity (Chronic) Osteoarthritis of left knee (Chronic) Steroid Injection: 01/05/2023; 01/07/2021 Left knee pain (Acute) Elevated serum creatinine (Acute) Brain tumor (Acute) Right sciatic nerve pain (Acute) Tubular adenoma of colon (Acute) Hx of adenomatous colonic polyps (Acute) Medical History Abnormal mammography (08/20/03) right; neg. BX Adjustment disorder with depressed mood Allergic rhinitis (02/08/15) Anxiety Benign paroxysmal positional vertigo Cholelithiasis (01/16/15) Congenital ptosis Diverticula of colon Dizziness Essential hypertension (02/01/14) Foot pain, right Gastric motor function disorder Gastroesophageal reflux disease Hiatal hernia Hyperlipidemia Hypertension not well controlled Obesity Papanicolaou smear of vagina with atypical squamous cells of undetermined significance (ASC-US) (08/20/04) Seborrheic keratosis bothersome to pt, so will arrange excision Sensorineural hearing loss of both ears URI (upper respiratory infection) Vertigo Surgical History History of bilateral ligation of fallopian tubes S/P colonoscopy (~2013) Maximo- Tubular adenoma, Inflammatory and hyperplastic Family History Mother , age 93 Essential hypertension Colon cancer Father , age 86 Diabetes Essential hypertension Sister , age 72 No problems noted. Brother , SUICIDE at age 74. Depression Bladder cancer Sister Cancer Brother , age 60 Depression Brother , age 80 Depression Social History (Updated 12/05/22 @ 11:43 by Gely Morales) Smoking/Tobacco Use Status: Never Second Hand Exposure: Yes Smoking risk assessment performed?: Yes Alcohol Intake: never Drug use: Never Substance use type: does not use Pets and animals: Yes Pets and animals: cat(s) Sexually active: No Do you think of yourself as: straight/heterosexual Current gender identity: female What is your relationship status?: How often do you talk on the phone with friends or family?: decline to answer How often do you get together with friends or relatives?: twice per week How often do you attend voodoo or restorationism services?: decline to answer Do you belong to any clubs or organized social groups?: decline to answer Panel score (0-1 are the most socially isolated patients): 0 What type of physical activity do you participate in: none Frequency: does not exercise Sherly/Rastafarian: Christianity Seatbelt use: always Drive intox or 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/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: No Do you feel safe at home: Yes Do you feel safe in your relationship?: Yes Exam <PARRIS Moy - Last Filed: 01/29/23 16:11> Const General: cooperative, comfortable and no acute distress Orientation: alert and oriented x3 HENMT Head: normal to inspection Eyes Pupils: PERRL EOM: EOM intact bilaterally Resp Effort & Inspection: normal respiratory effort Auscultation: clear to auscultation bilaterally Cardio Rate: tachycardic Rhythm: regular rhythm GI Inspection: normal to inspection Neuro General: patient alert and patient oriented x3 Course <PARRIS Moy - Last Filed: 01/29/23 16:11> Vital Signs Vital signs: Vital Signs Temperature 36.7 C 01/26/23 20:23 Pulse 109 H 01/26/23 20:23 Respiratory Rate 18 01/26/23 20:23 Blood Pressure 140/75 01/26/23 20:23 Pulse Oximetry 98 01/26/23 20:23 Temperature 36.7 C 01/26/23 20:23 Temperature Source Oral 01/26/23 20:23 Pulse 86 01/26/23 21:31 Pulse 88 01/26/23 22:40 Respiratory Rate 14 01/26/23 22:40 Respiratory Effort Normal, Non-Labored 01/26/23 20:47 Respiratory Depth Normal 01/26/23 20:47 Respiratory Pattern Normal 01/26/23 20:47 Blood Pressure 144/79 H 01/26/23 21:31 Blood Pressure Mean 95 01/26/23 21:31 Blood Pressure Position Sitting 01/26/23 20:23 Pulse Oximetry 97 01/26/23 22:40 Oxygen Delivery Method Room Air 01/26/23 20:23 Oxygen Flow Rate 0 01/26/23 20:23 Pain Level 0 01/26/23 20:47 Lab/Test Results Lab/Test Results: Laboratory Tests Range/Units 01/26/23 01/26/23 01/26/23 20:43 20:43 20:43 WBC (4.4-10.8) 10^3/uL 8.89 RBC (3.93-5.22) 10^6/uL 4.23 Hgb (11.2-15.7) g/dL 13.4 Hct (36.0-46.0) % 39.6 MCV (80-95) fL 94 MCH (27.0-33.0) pg 31.7 MCHC (32.0-36.0) % 33.8 RDW (11.7-14.6) % 12.9 Plt Count (130-400) 10^3/uL 241 MPV (8.0-11.0) fL 9.9 Immature Gran % 0.3 Neutrophils % 43.0 Lymphocytes % 43.4 Monocytes % 9.1 Eosinophils % 3.3 Basophils % 0.9 Nucleated RBC % (0.0-0.3) % 0.0 Absolute Neutrophils (1.2-6.7) 10^3/uL 3.82 Absolute Lymphocytes (1.2-3.4) 10^3/uL 3.86 H Absolute Monocytes (0.1-0.8) 10^3/uL 0.81 H Absolute Eosinophils (0.0-0.7) 10^3/uL 0.29 Absolute Basophils (0.0-0.2) 10^3/uL 0.08 Sodium (136-145) mmol/L 142 Potassium (3.5-5.1) mmol/L 4.3 Chloride (98-107) mmol/L 104 Carbon Dioxide (21.0-32.0) mmol/L 30.2 Anion Gap (3-11) mmol/L 7.8 BUN (7-18) mg/dL 26 H Creatinine (0.55-1.02) mg/dL 1.4 H Est GFR (CKD-EPI 2020) (mL/min/1.73m2) 38.99 Glucose (74-106) mg/dL 130 H Calcium (8.5-10.1) mg/dL 9.2 Total Bilirubin (0.2-1.0) mg/dL 0.4 AST (15-37) U/L 24 ALT (14-59) U/L 33 Alkaline Phosphatase (46-116) U/L 124 H Troponin I (<or=60) ng/L < 50 NT-Pro-B Natriuret Pep (<300) pg/mL 32 Total Protein (6.4-8.2) g/dL 7.3 Albumin (3.4-5.0) g/dL 3.8 Lipase (16-77) U/L 47 COVID-19 Source SARS-CoV-2 (PCR) (Negative) Influenza Type A (PCR) (Negative) Influenza Type B (PCR) (Negative) RSV (PCR) (Negative) Range/Units 01/26/23 21:10 WBC (4.4-10.8) 10^3/uL RBC (3.93-5.22) 10^6/uL Hgb (11.2-15.7) g/dL Hct (36.0-46.0) % MCV (80-95) fL MCH (27.0-33.0) pg MCHC (32.0-36.0) % RDW (11.7-14.6) % Plt Count (130-400) 10^3/uL MPV (8.0-11.0) fL Immature Gran % Neutrophils % Lymphocytes % Monocytes % Eosinophils % Basophils % Nucleated RBC % (0.0-0.3) % Absolute Neutrophils (1.2-6.7) 10^3/uL Absolute Lymphocytes (1.2-3.4) 10^3/uL Absolute Monocytes (0.1-0.8) 10^3/uL Absolute Eosinophils (0.0-0.7) 10^3/uL Absolute Basophils (0.0-0.2) 10^3/uL Sodium (136-145) mmol/L Potassium (3.5-5.1) mmol/L Chloride (98-107) mmol/L Carbon Dioxide (21.0-32.0) mmol/L Anion Gap (3-11) mmol/L BUN (7-18) mg/dL Creatinine (0.55-1.02) mg/dL Est GFR (CKD-EPI 2020) (mL/min/1.73m2) Glucose (74-106) mg/dL Calcium (8.5-10.1) mg/dL Total Bilirubin (0.2-1.0) mg/dL AST (15-37) U/L ALT (14-59) U/L Alkaline Phosphatase (46-116) U/L Troponin I (<or=60) ng/L NT-Pro-B Natriuret Pep (<300) pg/mL Total Protein (6.4-8.2) g/dL Albumin (3.4-5.0) g/dL Lipase (16-77) U/L COVID-19 Source Nasopharynx SARS-CoV-2 (PCR) (Negative) Negative Influenza Type A (PCR) (Negative) Negative Influenza Type B (PCR) (Negative) Negative RSV (PCR) (Negative) Negative Sign Out <PARRIS Moy - Last Filed: 01/29/23 16:11> Sign Out Data: Sign Out Comment: pending repeat trop and ekg @7260 Last updated by Shahrzad Saucedo PA at 01/26/23 23:31
--- NOTE | 2023-01-26 23:45 | RT.EKG_ITS ---
APPROVED REPORT Exam: Resting ECG Reason for Exam: chest pain Patient Location: E HR:85 bpm ECG Measurements Heart Rate 85 AXIS MD 161 P 34 QRSd 67 QRS -16 QT 370 T 49 QTc 441 Conclusion Sinus rhythm...normal P axis, V-rate 60- 99 Low voltage, precordial leads...precordial leads <1.0mV. Sinus. Left axis. Normal intervals. No STEMI. I have reviewed and interpreted ECG and agree with software generated interpretation.
[2023-01-27] VITALS: PULSE 85; RESP 11
[2023-01-27 00:09] LABS: Troponin I < 50 ng/L (<or=60)
[2023-01-27 00:10] VITALS: PULSE 86; RESP 16; O2SAT 96
[2023-01-27 00:20] VITALS: PULSE 86; RESP 13; O2SAT 98
--- NOTE | 2023-01-27 11:13 | W.EDPROG ---
Date of service: 01/27/23 Time of Service: 11:13 Medical Decision Making I received a call from radiology who advised follow-up right upper quadrant ultrasound the CAT scan of the patient's chest showed a density projecting over the gallbladder and liver. I will ask health community health nursing director Gabriel to reach out to the patient's primary care provider to schedule a right upper quadrant ultrasound. I will call the patient at home. Unfortunately she did not answer. I advised her of this incidental finding and plan for right upper quadrant ultrasound as ordered by her primary care provider. I advised ED return if she develops any fevers abdominal pain nausea vomiting or diarrhea. Sign Out Sign Out Data: Sign Out Comment: pending repeat trop and ekg @8686 Last updated by Shahrzad Saucedo PA at 01/26/23 23:31 Discharge Plan Disposition Patient Disposition: Home Condition: Good Discharge Details Clinical Impression: Upper back pain on left side Primary Care Provider: Haseeb Estrada ED Provider: Bev Taylor Home Meds and New Rx's Prescriptions: Continued Shingrix Adjuvant Component-PF Suspension 0.5 ml IM DAILY Qty: 0.5 1RF Rx Instructions: given 2nd dose 2-6 months after first loratadine 10 mg tablet 10 mg PO DAILY PRN (Reason: allergy symptoms) Qty: 30 5RF telmisartan 80 mg tablet 80 mg PO DAILY Qty: 90 3RF diclofenac potassium 50 mg tablet 50 mg PO TID PRN (Reason: pain) Qty: 30 2RF meclizine 25 mg tablet 25 mg PO TID PRN (Reason: dizziness) Qty: 15 0RF multivitamin 1 EACH capsule 1 ea PO DAILY Patient Comments: ran out Discharge Instructions Instructions: Diet for Stomach Ulcers and Gastritis (ED), GERD (Gastroesophageal Reflux Disease) (ED), Back Pain (ED) Additional Instructions: Your blood tests, EKGs and imaging today are reassuring and show no evidence of acute concerning or significant findings. Drink plenty of fluids and get plenty of rest. You can try starting an [id number] Prilosec to take once daily for the next 2 weeks if your symptoms are possibly due to indigestion or GERD (gastroesophageal reflux disease). An order for an outpatient stress test has been placed. Please contact the radiology department to confirm scheduling of this test. Follow-up with your primary care doctor in 1 week. Return to the emergency department with any worsening or new concerning symptoms. Discharge Data Discharge Date/Time-TO BE ENTERED AT DEPARTURE: 01/27/23 01:20 Discharge Physician: Bev Taylor
== END 2023-01-27 01:20 | disposition home or self-care (01) ==
PROVIDERS: Physician Assistant; Emergency Provider Physician Assistant; PCP Family Medicine
DX: M54.89 Other dorsalgia (principal); I10 Essential (primary) hypertension; Z79.899 Other long term (current) drug therapy; R06.02 Shortness of breath
CPT/HCPCS: 36415; 71275; 80053; 83690; 87637; 93005; 96360; 96361; 99284; 83880; 84484; 85025; 93010; J3490

== ENCOUNTER → 2023-02-02 14:49 | Outpatient (BNVA) | payer OTHER, MEDICAID, SELFPAY | PROVIDERS: PCP Family Medicine; Referring Provider Family Medicine; Visit Provider Student in an Organized Health Care Education/Training Program | DX: M16.12 Unilateral primary osteoarthritis, left hip (principal) | CPT/HCPCS: 20611; J1040 ==

== ENCOUNTER 2023-02-19 02:03 | Outpatient (CLI) | payer OTHER, MEDICAID, SELFPAY ==
--- NOTE | 2023-02-19 06:30 | DI.US_ITS ---
Exam(s) US ABDOMEN LIMITED EXAM: US ABDOMEN LIMITEDi CLINICAL HISTORY: Ct shows ? lesion in gallbladder region;abd pain,r10.9 TECHNIQUE: Ultrasound abdomen performed using standard protocol. COMPARISON: CT CT CHEST PE CTA from 01/26/2023 US POCUS EXAM from 02/02/2023 FINDINGS: There is no ascites evident. LIVER: Liver is hyperechoic indicating steatosis. There are no hepatic lesions evident nor dilatatio n of intrahepatic ducts. GALLBLADDER/BILIARY: There is a large calculus in the gallbladder fundus measuring approximately 5 cm . Sludge and smaller calculi also noted. The common hepatic duct isnot dilated, measuring 5mm at the level of franky hepatis. PANCREAS: There is no evidence of pancreatic mass nor dilatation of the pancreatic duct. RIGHT KIDNEY:No evidence of solid mass, calculus, nor hydronephrosis. No cortical cysts evident. IMPRESSION: 1. Cholelithiasis. No obvious acute cholecystitis. CBD not dilated. 2. Hepatic steatosis. Correlation with appropriate hepatic blood work recommended. 3. There is no ascites. DATA REPOSITORY:
== END 2023-02-19 02:23 ==
LOC: DI 02:03
PROVIDERS: PCP Family Medicine; Visit Provider Family Medicine
DX: K80.20 Calculus of gallbladder without cholecystitis without obstruction; K76.0 Fatty (change of) liver, not elsewhere classified
CPT/HCPCS: 76705

== ENCOUNTER → 2023-03-04 14:21 | Outpatient (BNVA) | payer OTHER, MEDICAID, SELFPAY | PROVIDERS: PCP Family Medicine; Referring Provider Family Medicine; Visit Provider Surgery | DX: K82.9 Disease of gallbladder, unspecified (principal) | CPT/HCPCS: 99214 ==

== ENCOUNTER 2023-03-13 06:14 | Day surgery (SDC) | payer OTHER, MEDICAID, SELFPAY ==
[2023-03-13] VITALS (9 sets, daily range): BP systolic 101–136; BP diastolic 36–84; PULSE 60–97; RESP 11–19; TEMP 35.8–36.2; O2SAT 94–100; BMI 35.4
[2023-03-13] MEDS: Gabapentin 300 MG CAP 600 MG PO (06:25)
[2023-03-13] MEDS: Acetaminophen 500 MG TAB 1000 MG PO (06:28)
[2023-03-13] MEDS: Celecoxib 200 MG CAP PO (06:29)
--- NOTE | 2023-03-13 07:10 | ANES.PREOP_ITS ---
General Info Date of Service Date Performed: 03/13/23 Height: 5 ft 2 in Weight: 88 kg Body Mass Index (BMI): 35.4 Surgical Procedure: Operation Date: 03/13/23 07:40 Proposed Procedure Side Surgeon p Cholecystectomy Laparoscopic Cody Watters MD Meds Allergies and Home Medications Allergies Allergy/AdvReac Type Severity Reaction Status Date / Time benzonatate Allergy THROAT AND Verified 03/13/23 06:40 TONGUE SWELLING Home Medication Medication Instructions Recorded multivitamin 1 ea PO DAILY 12/30/12 meclizine 25 mg tablet 25 mg PO TID PRN dizziness #15 tabs 11/01/19 adjuvant AS01B (PF)vial 1 of 2 0.5 ml IM DAILY #0.5 mL 11/23/19 (Shingrix Adjuvant Component (PF) intramuscular suspension) loratadine 10 mg tablet 10 mg PO DAILY PRN allergy 12/03/21 symptoms #30 tabs diclofenac potassium 50 mg tablet 50 mg PO TID PRN pain #30 tabs 12/04/22 telmisartan 80 mg tablet 80 mg PO DAILY #90 tabs 12/04/22 omeprazole 20 mg capsule,delayed 20 mg PO DAILY #30 caps 01/29/23 release biotin 5 mg capsule 5 mg PO DAILY 03/04/23 docusate sodium 100 mg capsule 100 mg PO DAILY 03/04/23 (Colace) Current Visit Medications: Current Medications Generic Name Dose Route Start Last Admin Trade Name Freq PRN Reason Stop Dose Admin Acetaminophen 1,000 mg 03/13/23 06:00 03/13/23 06:28 Acetaminophen 500 Mg Tab PO 03/13/23 23:59 1,000 mg PREOP SAMEERA Administration Celecoxib 200 mg 03/13/23 06:00 03/13/23 06:29 Celecoxib 200 Mg Cap PO 03/13/23 23:59 200 mg PREOP SAMEERA Administration Gabapentin 600 mg 03/13/23 06:00 03/13/23 06:25 Gabapentin 300 Mg Cap PO 03/13/23 23:59 600 mg PREOP SAMEERA Administration Ringer's Solution 1,000 mls @ 80 mls/hr 03/13/23 06:00 IV 03/13/23 23:59 INFUSION SAMEERA IV Miscellaneous Supplies 1 each 03/13/23 06:00 Iv Access IV 03/13/23 23:59 DIRECTED SAMEERA Sodium Chloride 0 ml 03/13/23 06:00 Normal Saline Flush 10 Ml Syr IV 03/13/23 23:59 PRN PRN Sodium Chloride 0 ml 03/13/23 06:00 Normal Saline 10 Ml Vial IJ 03/13/23 23:59 DIRECTED PRN Sterile Water 0 ml 03/13/23 06:00 Water,Injection,Sterile 10 Ml Vial IJ 03/13/23 23:59 DIRECTED PRN PFSH Active Problems Active Problems: Problem Status Onset Code Back pain M54.9 Primary osteoarthritis of left hip M16.12 Insomnia G47.00 Obesity E66.9 Osteoarthritis of left knee M17.12 Left knee pain M25.562 Elevated serum creatinine R79.89 Brain tumor D49.6 Right sciatic nerve pain M54.31 Tubular adenoma of colon D12.6 Hx of adenomatous colonic polyps Z86.010 Medical History Medical History Abnormal mammography (08/20/03) right; neg. BX Adjustment disorder with depressed mood Allergic rhinitis (02/08/15) Anxiety Benign paroxysmal positional vertigo Cholelithiasis (01/16/15) Congenital ptosis Diverticula of colon Dizziness Essential hypertension (02/01/14) Foot pain, right Gastric motor function disorder Gastroesophageal reflux disease Hiatal hernia Hyperlipidemia Hypertension not well controlled Obesity Papanicolaou smear of vagina with atypical squamous cells of undetermined significance (ASC-US) (08/20/04) Seborrheic keratosis bothersome to pt, so will arrange excision Sensorineural hearing loss of both ears URI (upper respiratory infection) Vertigo Surgical History Surgical History History of bilateral ligation of fallopian tubes S/P colonoscopy (~2013) Maximo- Tubular adenoma, Inflammatory and hyperplastic Tobacco Smoking/Tobacco Use Status: Never Passive smoking exposure: Yes Second hand exposure: Yes Alcohol Alcohol Intake: never Substance Use Substance use: Never Substance use type: does not use Vital Signs and Lab Results Vital Signs Most Recent Vital Signs in EMR: Most Recent Vital Signs Temp Pulse Resp BP Pulse Ox 36 C L 97 H 18 136/75 97 03/13/23 06:31 03/13/23 06:31 03/13/23 06:31 03/13/23 06:31 06/23/23 06:31 Lab Results Blood Type / Crossmatch: No Data to Display Complete Blood Count: No Data to Display Complete Metabolic Panel: No Data to Display Liver Function Panel: No Data to Display Coagulation Panel: No Data to Display Cardiac Panel: No Data to Display Arterial Blood Gas: No Data to Display Venous Blood Gas: No Data to Display Pancreas Panel: No Data to Display Thyroid Panel: No Data to Display Infectious Disease: No Data to Display Blood Cultures: No Data to Display Toxicology Panel: No Data to Display Imaging and Studies Imaging and Studies Study information below may be from another EMR and interpreted by another provider. Please see original notes in EMR for more complete details. EKG Summary: DATE/TIME OF SERVICE: 01/26/232340 : 1945PERFORMING LOCATION: ER APPROVED REPORT Exam: Resting ECG Reason for Exam: chest pain Patient Location: E HR:85 bpm ECG Measurements Heart Rate 85 AXIS KS 161 P 34 QRSd 67 QRS -16 QT 370 T49 QTc 441 Conclusion Sinus rhythm...normal P axis, V-rate 60- 99 Low voltage, precordial leads...precordial leads <1.0mV. Sinus. Left axis. Normal intervals. No STEMI. I have reviewed and interpreted ECG and agree with software generated interpretation. Echocardiogram Summary: Date of Exam: 09/16/19Sex: F Admission Date: 09/15/19 : 1945 Age: 74 Exam(s) a US:US echocardiogram APPROVED REPORT EXAM: Comprehensive 2D, Doppler, and color-flow Echocardiogram Patient Location: In-Patient [facility] Equipment Operator: Eveline Linton RDCS (AE) Rhythm: NSR Indications: SUSPECTED CVA, WITH BUBBLE STUDY PLEASE! Conclusion Normal LV wall thickness and chmber size EF is 60 -65%. Wall motion is normal There is no chamber enlargement There is no significant valvular disease Bubble study is negative for intracardiac shunt Carotid Artery Summary:: Date of Exam: 09/16/19Sex: F Admission Date: 09/15/19 : 1945 Age: 74 Exam(s) a US:US carotid EXAM: US CAROTID CLINICAL HISTORY: suspected CVA TECHNIQUE: Ultrasound performed using standard protocol. COMPARISON: US ECHOCARDIOGRAM from 09/16/2019 FINDINGS: Duplex evaluation of the carotid circulation was performed according to the usual protocol. There is little if any visible atheromatous plaque in the carotid circulation. Flow velocities in common internal and external carotid arteries are within normal limits bilaterally. There is bilateral antegrade vertebral flow. IMPRESSION: No evidence of a hemodynamically significant carotid stenosis. Anesthesia Assessment and Plan Anesthesia History Personal History: No History of Anesthesia Complications Family History: No Family History of Anesthesia Complications Exercise Tolerance Exercise Tolerance: Metabolic Equivalents>4 Pertinent Negatives Pertinent Negatives: No Symptoms of GERD, No Major Cardiovascular Symptoms or Complaints and No Major Pulmonary Symptoms or Complaints Cardiac & Pulmonary Exam Cardiac Exam: Normal S1/S2 Heart Sounds Pulmonary Exam: Clear Bilateral Breath Sounds Implantable Cardiac Device Does patient have a Pacemaker or an ICD?: No Airway Exam Known Difficult Airway: No Mallampati Class: 3 Mouth Opening: Normal (> 3cm) Thyromental Distance: Greater than 3 cm Neck Range of Motion: Full ROM Neck Circumference: Normal Teeth Condition: Normal Dentition ASA Classification ASA Score: ASA 3 Emergency Case?: No NPO Status NPO Status: NPO Clears >2 hours, Solids >8 hours Anesthesia Plan Resuscitation Status: Full Code Anesthesia Technique: General Anesthesia Airway Planned: Endotracheal Tube Monitors Used: Standard Monitors
[2023-03-13] MEDS: Lactated Ringers 1,000 ML 80 ML IV (08:09)
[2023-03-13] MEDS: ceFAZolin 2 GM/50 ML BAG IVPB (08:13)
[2023-03-13] MEDS: Bupivacaine 0.25% Pres-Free 30 ML VIAL (08:44)
--- NOTE | 2023-03-13 09:57 | GB_PTH ---
PATIENT: Vangie Webb LOC: [facility] U#:[id number] AGE/SX: 77/F ROOM: RE03/13/[address]: Cody Watters MD : 1945 BED: DIS: 03/13/2023 SPEC #: [id number] RECD: 03/13/23 12:24 STATUS: YUNIOR RE #: [id number] TORRI: 03/13/23 09:[address]: Cody Watters DEPT: Surgical Specimen RECD BY: Shahrzad Craven ENTERED: 03/13/23 12:25 SP TYPE: GB OTHR DR: Haseeb Estrada MD Tissues: 1 - GALLBLADDER Procedures: GROSS AND MICRO LEVEL 3 Comments: [id number]
--- NOTE | 2023-03-13 10:18 | W.PM.DSUDISC ---
Date of service: 03/13/23 Time of Service: 10:18 Discharge Plan Disposition Patient Disposition: Home Condition: Good Discharge Details Reason For Visit: Cholecystectomy Attending Provider: Cody Watters Primary Care Provider: Haseeb Estrada Home Meds and New Rx's Prescriptions: New tramadol 50 mg tablet 50 mg PO Q8H PRN (Reason: cholecystectomy) Qty: 9 0RF Rx Instructions: Take 1 tablet by mouth up to every 8 hours if needed for severe pain. Do not drive while taking these medications as it can be quite strong. Continued Shingrix Adjuvant Component-PF Suspension 0.5 ml IM DAILY Qty: 0.5 1RF Rx Instructions: given 2nd dose 2-6 months after first loratadine 10 mg tablet 10 mg PO DAILY PRN (Reason: allergy symptoms) Qty: 30 5RF telmisartan 80 mg tablet 80 mg PO DAILY Qty: 90 3RF diclofenac potassium 50 mg tablet 50 mg PO TID PRN (Reason: pain) Qty: 30 2RF docusate sodium [Colace] 100 mg capsule 100 mg PO DAILY biotin 5 mg capsule 5 mg PO DAILY meclizine 25 mg tablet 25 mg PO TID PRN (Reason: dizziness) Qty: 15 0RF omeprazole 20 mg capsule,delayed release(DR/EC) 20 mg PO DAILY Qty: 30 2RF multivitamin 1 EACH capsule 1 ea PO DAILY Patient Comments: ran out Discharge Instructions Instructions: Laparoscopic Cholecystectomy (GEN) Additional Instructions: Vangie, we were able to get your gallbladder out today using the camera as we talked about beforehand. He had a fair amount of inflammation around the bottom portion of your gallbladder, as well as multiple large gallstones. Hopefully this operation will help relieve much of the discomfort that you have been experiencing. We look forward to seeing you in the office in follow-up. If you have any questions at all in the meantime, please feel free to call. 1. Resume all of your medications. 2. Ice packs and heating pads can be used over the incisions to help with discomfort. 3. Okay to use tylenol and ibuprofen over the counter as needed. Use all if needed for severe pain. 4. Leave bandage in place for 24 hours, then remove. 5. Shower with warm soapy water. Pat dry. Use a bandaid if needed to protect your clothing. 6. No soaking or tub baths until I see you in the office. 7. No heavy lifting until I see you in the office. 8. Call the office (or go directly to the emergency room after hours) if you notice any of the following: Develop chills (warm to touch), or if you have a thermometer and your temperature is above 101 Difficulty breathing or difficultly swallowing Persistent vomiting Any bleeding ? exceeding one tablespoon 6. Call your physician if the site where your intravenous was started becomes red, swollen, painful, and warm to touch. Referrals: Cody Watters MD [ [facility] STAFF PHYSICIAN] - (March 25 at 2:30 PM) Activity:: No heavy lifting Diet:: As Tolerated DS: Diagnosis Discharge Diagnosis (1) S/P aly: Status: Acute
--- NOTE | 2023-03-13 10:23 | ROE_ITS ---
Date of service: 03/13/23 Time of Service: 10:23 Operative Note Operative Note DATE OF PROCEDURE: 03/13/23 PRE-OP DIAGNOSIS: Biliary colic POST-OP DIAGNOSIS: other (Biliary colic with chronic cholecystitis) PROCEDURE: Laparoscopic cholecystectomy SURGEON: Cody Watters DETAILER [employer]ARMACE[employer]ICALS: Kimberlyn Coles ANESTHESIA TYPE: General LMA/ETT Refer to Anesthesia Record ESTIMATED BLOOD LOSS: 35 PATHOLOGY: other (Gallbladder) COMPLICATIONS: None Patient was transported to: PACU Patient's condition: stable Indications: Vangie is a 77-year-old woman who has been experiencing midepigastric abdominal discomfort and occasional nausea. She underwent a ultrasound of the gallbladder that demonstrated cholelithiasis as well as gallbladder sludge. We talked about the risks and benefits of laparoscopic cholecystectomy for biliary colic and chronic cholecystitis, and she provided informed consent. Findings: Dense inflammation of the triangle of Guerrero, with the cystic duct running parallel and slightly adherent to the common bile duct, which was mildly dilated. Procedure Description: After satisfactory induction of general anesthesia, I prepped and draped the abdomen in usual fashion. Next, I began with a periumbilical incision. I diss ected down to the fascia and elevated it with Aurelia clamps. I incised it sharply. Next, I passed a 12 mm operating port in the umbilical site. I secured it to the fascia with 0 Vicryl stitches. I then insufflated the peritoneal cavity. Next I inserted a 5 mm 30 degree scope and examined the underlying viscera. There was no evidence of injury created upon entry. I then placed the patient in some reverse Trendelenburg and left side down positioning. Then, with the assistance of the laparoscope, I used local anesthetic to anesthetize the midepigastric and 2 right upper quadrant port sites. Under the vision of the laparoscope, I passed 3 more 5 mm ports. I then grasped the gallbladder fundus and elevated cephalad. Retraction was challenging because of dense inflammation around the gallbladder infundibulum and cystic neck. The cystic duct ran parallel to the common bile duct, which was a bit dilated. I began by dissecting the gallbladder infundibulum. I worked in a lateral to medial fashion. I came around medially, great care was taken to avoid any injury to the common bile duct. Using tedious dissection, I was able to isolate the cystic duct from the common bile duct. Appropriate visualization was obtained with traction on the infundibulum towards the head. This straightened to the duct and allowed better dissection. Once this was completed, the cystic duct was doubly clipped and divided. Posterior medially, there was a fair amount of inflammation. Within the triangle of Calot were able to identify because of the chronic inflammation. Therefore, I allowed the gallbladder to fall back down, and began dissecting the dome of the gallbladder away from the gallbladder fossa. Using a dome down approach, the dissection was carried down towards the cystic duct. This dissection was carried out quite close to the gallbladder in order to avoid any injury to the common bile duct. Multiple small branches of the cystic artery were identified passing directly into the gallbladder. These were all doubly clipped and divided. This brought the dissection down onto the back wall of the cystic neck, and eventually down onto the divided cystic duct. Once this was completed, the specimen was completely freed, entered in an Endo Catch bag. The gallbladder fossa was then examined once again. There was no bleeding. I irrigated it until the effluent ran jaclyn ar. Ports were removed under direct vision of the laparoscope, and the umbilical port was removed followed by extraction of the Endo Catch bag containing the specimen. The fascial incision was closed with interrupted Vicryl stitches. Sites were irrigated, and the skin was closed with subcuticular stitches. Bandages were applied, patient was awakened from anesthesia, and transferred to the recovery unit.
[2023-03-13] MEDS: traMADol 50 MG TAB PO (11:55)
--- NOTE | 2023-03-13 13:02 | W.ANESPOSTOP ---
Postoperative Evaluation Date, Time and Location Date Performed: 03/13/23 Time Performed: 12:23 Patient Location: Day Surgery Unit Vital Signs Most Recent Imported Vital Signs: Most Recent Vital Signs Temp Pulse Resp BP Pulse Ox 35.8 C L 68 16 118/62 98 03/13/23 11:58 03/13/23 11:58 03/13/23 11:58 03/13/23 11:58 03/13/23 11:58 Pain Score Most Recent Pain Score: Most Recent Pain Score Pain Level 4 03/13/23 11:58 Assessment Mental Status: Awake (Alert & Oriented to Patient Baseline) Airway and Respiratory Function: Patent airway with normal (patient baseline) respiratory exam Cardiovascular Function: Hemodynamically Stable Hydration Status: Adequately Hydrated Nausea & Vomiting: No Nausea or Vomiting Pain: Pain is tolerable per patient Peripheral Nerve Block: Patient did not receive a nerve block
== END 2023-03-13 12:35 | disposition home or self-care (01) ==
PROVIDERS: PCP Family Medicine; Visit Provider Surgery
PROC: 0FT44ZZ Resection of Gallbladder, Percutaneous Endoscopic Approach (ICD-10-PCS; CPT 47562; principal; 2023-03-13 07:30)
DX: K80.10 Calculus of gallbladder with chronic cholecystitis without obstruction (principal); I10 Essential (primary) hypertension; E78.5 Hyperlipidemia, unspecified; E66.9 Obesity, unspecified; Z68.35 Body mass index [BMI] 35.0-35.9, adult
CPT/HCPCS: 47562; 88304; J0690; J1100; J1885; J2371; J2405; J2704

== ENCOUNTER → 2023-03-25 14:18 | Outpatient (BNVA) | payer OTHER, MEDICAID, SELFPAY | PROVIDERS: PCP Family Medicine; Referring Provider Family Medicine; Visit Provider Surgery | DX: Z48.815 Encounter for surgical aftercare following surgery on the digestive system (principal) ==

== ENCOUNTER 2023-12-22 04:51 | Outpatient (CLI) | payer OTHER, MEDICAID, SELFPAY ==
[2023-12-22 12:36] LABS: CREATININE 1.3 mg/dL (0.55-1.02); Calculated LDL 98 mg/dL (<100); Cholesterol 204 mg/dL (<200); Estimated GFR 42.35 (mL/min/1.73m2); HDL Cholesterol 73 mg/dL (40-60); Triglyceride 165 mg/dL (<150)
== END 2023-12-22 04:52 | disposition home or self-care (01) ==
LOC: LOS 04:52
PROVIDERS: PCP Family Medicine; Visit Provider Nurse Practitioner Family
DX: Z13.6 Encounter for screening for cardiovascular disorders (principal); I10 Essential (primary) hypertension
CPT/HCPCS: 36415; 80061; 82565; 84132

== ENCOUNTER → 2023-12-30 04:12 | Outpatient (CLI) | payer OTHER, MEDICAID, SELFPAY ==
--- NOTE | 2023-12-30 08:00 | DI.MAMMO_ITS ---
Exam(s) MAMMO SCREENING EXAM: MAMMO SCREENING CLINICAL HISTORY: screening,z12.39. TECHNIQUE: Bilateral full field digital CC and MLO mammographic images were obtained with 3D tomosyn thesis and utilizing computer aided detection (CAD). COMPARISON: Prior mammograms were reviewed. FINDINGS: There has been no significant change in the appearance and distribution of the fibroglandular tissue. Benign-appearing right breast nodule consistent with intramammary lymph node is unchanged from prior mammograms. There are no new spiculated masses nor malignant appearing microcalcification groups. There is no significant architectural distortion nor skin thickening-retraction. IMPRESSION: No radiographic evidence of malignancy. BI-RADS Category 1 - Negative Breast Density - Category B - Scattered areas of fibroglandular density Breast density Category C or D implies that the patient has dense breast tissue. Dense breast tissue can make it harder to find cancer on a mammogram. Dense breast tissue is also associated with an incr eased risk of breast cancer. This information about the result of the mammogram report was provided to the patient to raise their awareness. Use this report when you speak with the patient about their risks for breast cancer, which includes their family history. At that time, you may recommend additional screening tests (Ultrasoun d or MRI) as these tests may add significant information. A negative radiographic report should not delay biopsy if a dominant or clinically suspicious mass is present. Up to ten percent of cancers are not identified on mammography. A negative report may reinforce clinical impression. Adenosis and dense breasts may obscure an underlying neoplasm. False positive reports average 6 to 10%. Patient will receive a letter notifying them of these results.
== END ==
PROVIDERS: PCP Family Medicine; Visit Provider Nurse Practitioner Family
DX: Z12.31 Encounter for screening mammogram for malignant neoplasm of breast (principal); N60.81 Other benign mammary dysplasias of right breast
CPT/HCPCS: 77063; 77067

== ENCOUNTER → 2024-06-13 09:21 | Outpatient (BNVA) | payer OTHER, MEDICAID, SELFPAY | PROVIDERS: PCP Family Medicine; Referring Provider Family Medicine; Visit Provider Physician Assistant | DX: M16.12 Unilateral primary osteoarthritis, left hip (principal) | CPT/HCPCS: 20611; J1010 ==

== ENCOUNTER 2024-09-24 11:14 | Outpatient (CLI) | payer MEDICARE, MEDICAID, SELFPAY ==
--- NOTE | 2024-09-24 11:30 | DI.RAD_ITS ---
Exam(s) XR CHEST 2V PA LATERAL EXAM: XR CHEST 2V PA LATERAL CLINICAL HISTORY: eval pathology ? PNA. TECHNIQUE: 2D digital imaging was performed. COMPARISON: No exams were available for comparison FINDINGS: 2 views: Heart size is normal. The mediastinum is not widened. Lungs are clear. No infiltrates nor pleural effusions. IMPRESSION: No acute pulmonary findings. DATA REPOSITORY: RADIATION DOSE DELIVERED:
--- NOTE | 2024-09-24 13:08 | DI.VRAD_ITS ---
PROCEDURE INFORMATION: Exam: XR Chest Exam date and time: 09/24/2024 11:48 AM Age: 79 years old Clinical indication: Cough and other: Evaluae for pna TECHNIQUE: Imaging protocol: Radiologic exam of the chest. Views: 2 views. COMPARISON: CT CHEST PE CTA 01/26/2023 9:48 PM FINDINGS: Tubes, catheters and devices: Clips over right upper quadrant abdomen. Lungs: Slight infiltrate and/or atelectasis, possible slight bronchial wall thickening lower right hilar, perihilar, infrahilar region. No large areas of dense lobar consolidation seen of the lungs otherwise. Pleural spaces: No pneumothorax and no pleural effusion seen. Heart/Mediastinum: Heart size appears within normal. Vasculature: Atherosclerotic disease. Bones/joints: Degenerative changes spine. IMPRESSION: Slight infiltrate and/or atelectasis, possible slight bronchial wall thickening lower right hilar, perihilar, infrahilar region. Correlate for nonspecific inflammation, pneumonitis/pneumonia, bronchitis or other process. Dictated and Authenticated by: Damion Espinoza MD. Ordering:IBIS Wick MD
== END 2024-09-24 11:34 ==
PROVIDERS: PCP Family Medicine; Visit Provider Nurse Practitioner Family
DX: R05.9 Cough, unspecified (principal)
CPT/HCPCS: 71046

== ENCOUNTER 2024-10-28 06:37 | Day surgery (SDC) | payer MEDICARE, MEDICAID, SELFPAY ==
[2024-10-28] MEDS: Tropicam./Phenyleph. (1/2.5%) 5 ML BTL OS ×3 (07:12→07:29)
[2024-10-28 07:19] VITALS: BP 152/72; PULSE 94; RESP 16; TEMP 36.5; O2SAT 97
--- NOTE | 2024-10-28 07:39 | ANES.PREOP_ITS ---
General Info Date of Service Date Performed: 10/28/24 Height: 5 ft 1.5 in Weight: 87.8 kg Body Mass Index (BMI): 35.9 Surgical Procedure: Operation Date: 10/28/24 08:25 Proposed Procedure Side Surgeon p Cataract Extraction with IOL Implant Left Pavan Eller MD Meds Allergies and Home Medications Allergies Allergy/AdvReac Type Severity Reaction Status Date / Time benzonatate Allergy THROAT AND Verified 10/28/24 07:25 TONGUE SWELLING Home Medication ?Medication ?Instructions ?Recorded multivitamin 1 ea PO DAILY 12/30/12 meclizine 25 mg tablet 25 mg PO TID PRN dizziness #15 tabs 11/01/19 tetanus-diphtheria toxoids-Td 2 Lf 0.5 ml IM ONCE #0.5 mL 12/10/23 unit-2 Lf unit/0.5 mL IM suspension tramadol 50 mg tablet 50 mg PO Q8H PRN cholecystectomy 12/10/23 #9 tabs biotin 5 mg capsule 5 mg PO DAILY #90 caps 02/01/24 diclofenac potassium 50 mg tablet 50 mg PO TID PRN pain #30 tabs 02/01/24 loratadine 10 mg tablet 10 mg PO DAILY PRN allergy 02/01/24 symptoms #30 tabs telmisartan 80 mg tablet 80 mg PO DAILY #90 tabs 02/01/24 albuterol sulfate 90 mcg/actuation 2 puff inhalation Q6H PRN 09/24/24 aerosol inhaler shortness of breath or wheezing #6.7 grams omeprazole 20 mg capsule,delayed 20 mg PO DAILY PRN 10/25/24 release Current Visit Medications: Current Medications Generic Name Dose Route Start Last Admin Trade Name Freq PRN Reason Stop Dose Admin Acetaminophen 1,000 mg 10/28/24 06:00 Acetaminophen 500 Mg Tab PO 11/27/24 05:59 Q4H PRN PRN Balanced Salt Solution 500 ml 10/28/24 06:00 Balanced Salt Soln.-Plus 500 Ml Bag OP 11/27/24 05:59 DIRECTED SAMEERA Miscellaneous Medication 0 ml 10/28/24 06:00 Prednisolone 1%, Moxifloxacin 0.5%, Bromfenac 0.09% 5.6ml Btl OS 11/27/24 05:59 DIRECTED SAMEERA Miscellaneous Medication 0 ml 10/28/24 06:00 10/28/24 07:29 Tropicam./Phenyleph. (1/2.5%) 5 Ml Btl OS 11/27/24 05:59 1 drp DIRECTED SAMEERA Administration Tetracaine HCl 0 ml 10/28/24 06:00 Tetracaine 0.5% 4 Ml Btl OS 11/27/24 05:59 DIRECTED SAMEERA PFSH Active Problems Active Problems: Problem Status Onset Code Nuclear age-related cataract, left eye Acute H25.12 Sciatica Acute M54.30 Hypertension Chronic I10 S/P aly Acute Z90.49 Back pain Acute M54.9 Primary osteoarthritis of left hip Acute M16.12 Insomnia Acute G47.00 Obesity Chronic E66.9 Osteoarthritis of left knee Chronic M17.12 Left knee pain Acute M25.562 Elevated serum creatinine Acute R79.89 Brain tumor Acute D49.6 Right sciatic nerve pain Acute M54.31 Tubular adenoma of colon Acute D12.6 Hx of adenomatous colonic polyps Acute Z86.010 Medical History Medical History Hiatal hernia Vertigo Foot pain, right Sensorineural hearing loss of both ears Benign paroxysmal positional vertigo Anxiety Dizziness URI (upper respiratory infection) Seborrheic keratosis bothersome to pt, so will arrange excision Congenital ptosis Papanicolaou smear of vagina with atypical squamous cells of undetermined significance (ASC-US) (08/20/04) Hypertension not well controlled Gastroesophageal reflux disease Adjustment disorder with depressed mood Allergic rhinitis (02/08/15) Cholelithiasis (01/16/15) Diverticula of colon Essential hypertension (02/01/14) Gastric motor function disorder Hyperlipidemia Abnormal mammography (08/20/03) right; neg. BX Obesity Surgical History Surgical History History of cholecystectomy (~02/2023) S/P colonoscopy (~2013) [place]- Tubular adenoma, Inflammatory and hyperplastic History of bilateral ligation of fallopian tubes Tobacco Smoking/Tobacco Use Status: Never Passive smoking exposure: Yes Second hand exposure: No Alcohol Alcohol Intake: current Alcohol intake frequency: holidays/special occasions only Substance Use Substance use: Never Substance use type: does not use Vital Signs and Lab Results Vital Signs Most Recent Vital Signs in EMR: Most Recent Vital Signs Temp Pulse Resp BP Pulse Ox 36.5 C 94 H 16 152/72 H 97 10/28/24 07:19 10/28/24 07:19 10/28/24 07:19 10/28/24 07:19 10/28/24 07:19 Lab Results Blood Type / Crossmatch: No Data to Display Complete Blood Count: No Data to Display Complete Metabolic Panel: No Data to Display Liver Function Panel: No Data to Display Coagulation Panel: No Data to Display Cardiac Panel: No Data to Display Arterial Blood Gas: No Data to Display Venous Blood Gas: No Data to Display Pancreas Panel: No Data to Display Thyroid Panel: No Data to Display Infectious Disease: No Data to Display Blood Cultures: No Data to Display Toxicology Panel: No Data to Display Imaging and Studies Imaging and Studies Study information below may be from another EMR and interpreted by another provider. Please see original notes in EMR for more complete details. EKG Summary: DATE/TIME OF SERVICE: 01/26/23 2162 : 1945PERFORMING LOCATION: ER APPROVED REPORT Exam: Resting ECG Reason for Exam: chest pain Patient Location: E HR:85 bpm ECG Measurements Heart Rate 85 AXIS MS 161 P 34 QRSd 67 QRS -16 QT 370 T49 QTc 441 Conclusion Sinus rhythm...normal P axis, V-rate 60- 99 Low voltage, precordial leads...precordial leads <1.0mV. Sinus. Left axis. Normal intervals. No STEMI. I have reviewed and interpreted ECG and agree with software generated interpretation. Echocardiogram Summary: Date of Exam: 09/16/19Sex: F Admission Date: 09/15/19 : 1945 Age: 74 Exam(s) a US:US echocardiogram APPROVED REPORT EXAM: Comprehensive 2D, Doppler, and color-flow Echocardiogram Patient Location: In-Patient Search Coordinator: Eveline Linton RDCS (AE) Rhythm: NSR Indications: SUSPECTED CVA, WITH BUBBLE STUDY PLEASE! Conclusion Normal LV wall thickness and chmber size EF is 60 -65%. Wall motion is normal There is no chamber enlargement There is no significant valvular disease Bubble study is negative for intracardiac shunt Carotid Artery Summary:: Date of Exam: 09/16/19Sex: F Admission Date: 09/15/19 : 1945 Age: 74 Exam(s) a US:US carotid EXAM: US CAROTID CLINICAL HISTORY: suspected CVA TECHNIQUE: Ultrasound performed using standard protocol. COMPARISON: US ECHOCARDIOGRAM from 09/16/2019 FINDINGS: Duplex evaluation of the carotid circulation was performed according to the usual protocol. There is little if any visible atheromatous plaque in the carotid circulation. Flow velocities in common internal and external carotid arteries are within normal limits bilaterally. There is bilateral antegrade vertebral flow. IMPRESSION: No evidence of a hemodynamically significant carotid stenosis. Anesthesia Assessment and Plan Anesthesia History Personal History: No History of Anesthesia Complications Family History: No Family History of Anesthesia Complications Exercise Tolerance Exercise Tolerance: Metabolic Equivalents>4 Pertinent Negatives Pertinent Negatives: No Symptoms of GERD Cardiac & Pulmonary Exam Cardiac Exam: Normal S1/S2 Heart Sounds Pulmonary Exam: Clear Bilateral Breath Sounds Implantable Cardiac Device Does patient have a Pacemaker or an ICD?: No Airway Exam Known Difficult Airway: No Mallampati Class: 3 Mouth Opening: Normal (> 3cm) Thyromental Distance: Greater than 3 cm Neck Range of Motion: Full ROM Neck Circumference: Normal Teeth Condition: Normal Dentition ASA Classification ASA Score: ASA 3 Emergency Case?: No NPO Status NPO Status: NPO Clears >2 hours, Solids >8 hours Anesthesia Plan Resuscitation Status: Full Code Anesthesia Technique: MAC Anesthesia Airway Planned: Natural Airway Monitors Used: Standard Monitors
[2024-10-28 07:42] VITALS: BMI 35.9
[2024-10-28] MEDS: Duovisc Viscoelastic System EACH 1 EACH (08:40)
[2024-10-28] MEDS: Balanced Salt Soln.-PLUS 500 ML BAG OP ×2 (08:40→09:00)
[2024-10-28] MEDS: Povidone-Iodine Ophth 30 ML BTL (08:41)
[2024-10-28] MEDS: Moxifloxacin-PF 1 MG/ML VIAL (08:42)
[2024-10-28] MEDS: Phenylephrine/Lidocaine (15/10) MG/ML 1 ML VIAL (08:43)
[2024-10-28] MEDS: Lidocaine 1% Pres-Free 5 ML VIAL (08:44)
[2024-10-28] MEDS: Prednisolone 1%, Moxifloxacin 0.5%, Bromfenac 0.09% 5.6ML BTL OS (08:44)
[2024-10-28] MEDS: Tetracaine 0.5% 4 ML BTL OS (08:45)
--- NOTE | 2024-10-28 09:10 | ROE_ITS ---
Operative Note Operative Note PRE-OP DIAGNOSIS: Nuclear cataract, left eye Poorly dilating pupil, left eye POST-OP DIAGNOSIS: same PROCEDURE: Cataract extraction using phacoemulsification with intraocular lens implant, left eye Pupillary dilation and iris stabilization with 6.25 mm Malyugin ring SURGEON: Pavan Eller ANESTHESIA TYPE: Local By Surgeon and MAC Refer to Anesthesia Record PATHOLOGY: none sent COMPLICATIONS: None Patient was transported to: same day Patient's condition: stable Implants: Tc Clareon [id number] Indications: Progressive decreased vision due to cataract, left eye Procedure Description: CATARACT SURGERY OPERATIVE REPORT PREOPERATIVE DIAGNOSIS: Nuclear cataract, left eye Poorly dilating pupil, left eye POSTOPERATIVE DIAGNOSIS: Same OPERATION: Cataract extraction using phacoemulsification with posterior chamber intraocular lens implant, left eye. Pupillary dilation and iris stabilization with 6.25 mm Malyugin ring IOL: IOL Mental Health Worker/Model: Tc Clareon [id number] IOL Power: + 17.5 diopters IOL Serial Number: [id number] Optic Diameter: 6.0mm Haptic/Overall Diameter: 13.0mm PHACO INFO: Tc Centurion Vision System with OZil and Active Fluidics Cumulative Dispersed Energy (CDE): 17.7 seconds SURGEON: Pavan Eller MD, EMELY ANESTHESIA: Monitored Anesthesia Care (MAC), with local sub-tenon's anesthetic infiltration COMPLICATIONS: None SPECIMENS: None INDICATIONS FOR PROCEDURE: The patient is a 79-year-old lady with history of diminished visual acuity in her left eye. She has noted to have a rather dense nuclear cataract. The option of cataract surgery was offered to the patient and she wished to proceed. See office notes for detailed information. PROCEDURE: The correct surgical eye was identified and marked as the left eye and the pupil was dilated in the preoperative area using mydriatics and cycloplegics. The dilated pupil size was 4.0 mm. The patient elected to proceed without oral sedation. The patient was brought to the operating room where cardiopulmonary monitoring was instituted and surgical time-out was p erformed, confirming the correct operative eye and IOL power. Topical anesthesia was administered and ophthalmic povidone-iodine 5% was instilled into the conjunctival fornices. The kristal-ocular area was prepped with Betadine 10% solution and draped in the usual sterile fashion for intraocular surgery, including an aperture drape. A Tegaderm transparent film dressing was cut in half and used to cover the lashes and lid margins. Care was taken to sequester the lashes and lid margins under the Tegaderm dressing. A lid speculum was placed between the lids of the operative eye and the Tc LuxOR Revalia operating microscope was maneuvered into position. Gissell scissors were then used to make a conjunctival buttonhole approximately 6mm posterior to the limbus in the inferonasal quadrant. Blunt dissection was carried out to expose bare sclera, and a blunt-tipped sub-tenon?s anesthesia cannula was introduced and passed posteriorly along the globe where non- preserved plain lidocaine was injected into posterior sub-Tenon?s space. A sideport knife was used to make a paracentesis port. Intraocular phenylephrine/lidocaine was injected into the anterior chamber. The anterior chamber was then filled with viscoelastic. A keratome knife was used construct a two-plane clear corneal tunnel extending 2.0mm into clear cornea. A 6.25 mm Malyugin ring was inserted into the pupillary space and engaged with the Kuglen hook. A flap was raised on the anterior capsule and capsulorhexis forceps were used to complete a continuous curvilinear capsulorhexis of 5.0 mm. Balanced salt solution was then used to perform cortical cleaving hydrodissection and nuclear hydrodelineation until the lens could be freely rotated within the capsular bag. The lens nucleus was then disassembled and removed within the capsular bag and iris plane using phacoemulsification. Residual cortical material was removed using the irrigation/aspiration handpiece. The posterior capsule was carefully polished to remove as much residual lens epithelial cells as safely possible. The capsular bag was then inflated and the anterior chamber deepened with viscoelastic. The lens implant described above was inserted into the capsular bag using the Tc Autonome Injector. A Kuglen hook was used to dial the IOL into position. The Malyugin ring was removed in the reverse order of its insertion. Residual viscoelastic was then removed first from posterior to the IOL, then from the anterior chamber using the I/A handpiece. The lens implant was noted to center nicely within the capsular bag. The incisions were stromally hydrated, and the anterior chamber was reformed using BSS. Then 0.5cc of moxifloxacin 1.0mg/ml were injected into the capsular bag and anterior chamber. The incisions were checked with a Weck spear and found to be secure. Several drops of ophthalmic povidone-iodine 5% were then applied to the eye followed by two drops of combination steroid/NSAID/antibiotic solution. The drapes were removed and a clear plastic protective eye shield was placed over the eye. The patient was then returned to Same Day Surgery in stable condition. Date of Procedure: 10/28/24
--- NOTE | 2024-10-28 09:10 | W.PM.DSUDISC ---
Date of service: 10/28/24 Discharge Plan Disposition Patient Disposition: Home Discharge Details Attending Provider: Pavan Eller Primary Care Provider: Haseeb Estrada Home Meds and New Rx's Prescriptions: No Action tramadol 50 mg tablet 50 mg PO Q8H PRN (Reason: cholecystectomy) Qty: 9 0RF Rx Instructions: Take 1 tablet by mouth up to every 8 hours if needed for severe pain. Do not drive while taking these medications as it can be quite strong. tetanus-diphtheria toxoids-Td 2-2 Lf unit/0.5 mL suspension 0.5 ml IM ONCE Qty: 0.5 0RF albuterol sulfate 90 mcg/actuation HFA aerosol inhaler 2 puff inhalation Q6H PRN (Reason: shortness of breath or wheezing) Qty: 6.7 0RF meclizine 25 mg tablet 25 mg PO TID PRN (Reason: dizziness) Qty: 15 0RF multivitamin 1 EACH capsule 1 ea PO DAILY Patient Comments: ran out telmisartan 80 mg tablet 80 mg PO DAILY Qty: 90 3RF biotin 5 mg capsule 5 mg PO DAILY Qty: 90 3RF diclofenac potassium 50 mg tablet 50 mg PO TID PRN (Reason: pain) Qty: 30 2RF loratadine 10 mg tablet 10 mg PO DAILY PRN (Reason: allergy symptoms) Qty: 30 5RF omeprazole 20 mg capsule,delayed release(DR/EC) 20 mg PO DAILY PRN Discharge Instructions Stand Alone Forms: DSU Post-Op CataractViviana (DSU) Discharge Orders Discharge Orders: Discharge Order (Routine); Ordered 10/28/24 Ordered By: Pavan Eller DS: Diagnosis Discharge Diagnosis (1) Nuclear age-related cataract, left eye: Status: Resolved
[2024-10-28 09:14] VITALS: BP 149/77; PULSE 81; RESP 17; TEMP 36.5; O2SAT 99
--- NOTE | 2024-10-28 09:29 | W.ANESPOSTOP ---
Postoperative Evaluation Date, Time and Location Date Performed: 10/28/24 Time Performed: : Patient Location: Day Surgery Unit Vital Signs Most Recent Imported Vital Signs: Most Recent Vital Signs Temp Pulse Resp BP Pulse Ox 36.5 C 81 17 149/77 H 99 10/28/24 09:14 10/28/24 09:14 10/28/24 09:14 10/28/24 09:14 10/28/24 09:14 Pain Score Most Recent Pain Score: Most Recent Pain Score Pain Level 0 10/28/24 09:14 Assessment Mental Status: Awake (Alert & Oriented to Patient Baseline) Airway and Respiratory Function: Patent airway with normal (patient baseline) respiratory exam Cardiovascular Function: Hemodynamically Stable Hydration Status: Adequately Hydrated Nausea & Vomiting: No Nausea or Vomiting Pain: Pt. Denies Any Pain Peripheral Nerve Block: Patient did not receive a nerve block
== END 2024-10-28 09:36 | disposition home or self-care (01) ==
LOC: SUR 06:37
PROVIDERS: PCP Family Medicine; Visit Provider Ophthalmology
PROC: (CPT 66982; principal; 2024-10-28 08:15)
DX: H25.12 Age-related nuclear cataract, left eye (principal)
CPT/HCPCS: 66982; 00123; V2632; J2003

== ENCOUNTER 2024-11-04 09:17 | Day surgery (SDC) | payer MEDICARE, MEDICAID, SELFPAY ==
[2024-11-04 09:20] VITALS: BP 142/75; PULSE 90; RESP 18; TEMP 36.6; O2SAT 98
[2024-11-04] MEDS: Tropicam./Phenyleph. (1/2.5%) 5 ML BTL OD ×3 (09:35→09:45)
--- NOTE | 2024-11-04 10:54 | W.ANESPRE ---
General Info Date of Service Date Performed: 11/04/24 Height: 5 ft 1.5 in Weight: 88.2 kg Body Mass Index (BMI): 36.1 Surgical Procedure: Operation Date: 11/04/24 10:40 Proposed Procedure Side Surgeon p Cataract Extraction with IOL Implant Right Pavan Eller MD Meds Allergies and Home Medications Allergies Allergy/AdvReac Type Severity Reaction Status Date / Time benzonatate Allergy THROAT AND Verified 11/04/24 09:34 TONGUE SWELLING Home Medication ?Medication ?Instructions ?Recorded multivitamin 1 ea PO DAILY 12/30/12 meclizine 25 mg tablet 25 mg PO TID PRN dizziness #15 tabs 11/01/19 tetanus-diphtheria toxoids-Td 2 Lf 0.5 ml IM ONCE #0.5 mL 12/10/23 unit-2 Lf unit/0.5 mL IM suspension tramadol 50 mg tablet 50 mg PO Q8H PRN cholecystectomy 12/10/23 #9 tabs biotin 5 mg capsule 5 mg PO DAILY #90 caps 02/01/24 diclofenac potassium 50 mg tablet 50 mg PO TID PRN pain #30 tabs 02/01/24 loratadine 10 mg tablet 10 mg PO DAILY PRN allergy 02/01/24 symptoms #30 tabs telmisartan 80 mg tablet 80 mg PO DAILY #90 tabs 02/01/24 albuterol sulfate 90 mcg/actuation 2 puff inhalation Q6H PRN 09/24/24 aerosol inhaler shortness of breath or wheezing #6.7 grams omeprazole 20 mg capsule,delayed 20 mg PO DAILY PRN 10/25/24 release Current Visit Medications: Current Medications Generic Name Dose Route Start Last Admin Trade Name Freq PRN Reason Stop Dose Admin Acetaminophen 1,000 mg 11/04/24 06:00 Acetaminophen 500 Mg Tab PO 12/04/24 05:59 Q4H PRN PRN Balanced Salt Solution 500 ml 11/04/24 06:00 Balanced Salt Soln.-Plus 500 Ml Bag OP 12/04/24 05:59 DIRECTED SAMEERA Miscellaneous Medication 0 ml 11/04/24 06:00 Prednisolone 1%, Moxifloxacin 0.5%, Bromfenac 0.09% 5.6ml Btl OD 12/04/24 05:59 DIRECTED SAMEERA Miscellaneous Medication 0 ml 11/04/24 06:00 11/04/24 09:45 Tropicam./Phenyleph. (1/2.5%) 5 Ml Btl OD 12/04/24 05:59 1 drp DIRECTED SAMEEAR Administration Tetracaine HCl 0 ml 11/04/24 06:00 Tetracaine 0.5% 4 Ml Btl OD 12/04/24 05:59 DIRECTED SAMEERA PFSH Active Problems Active Problems: Problem Status Onset Code Nuclear age-related cataract, right eye Acute H25.11 Nuclear age-related cataract, left eye Resolved H25.12 Sciatica Acute M54.30 Hypertension Chronic I10 S/P aly Acute Z90.49 Back pain Acute M54.9 Primary osteoarthritis of left hip Acute M16.12 Insomnia Acute G47.00 Obesity Chronic E66.9 Osteoarthritis of left knee Chronic M17.12 Left knee pain Acute M25.562 Elevated serum creatinine Acute R79.89 Brain tumor Acute D49.6 Right sciatic nerve pain Acute M54.31 Tubular adenoma of colon Acute D12.6 Hx of adenomatous colonic polyps Acute Z86.010 Medical History Medical History Hiatal hernia Vertigo Foot pain, right Sensorineural hearing loss of both ears Benign paroxysmal positional vertigo Anxiety Dizziness URI (upper respiratory infection) Seborrheic keratosis bothersome to pt, so will arrange excision Congenital ptosis Papanicolaou smear of vagina with atypical squamous cells of undetermined significance (ASC-US) (08/20/04) Hypertension not well controlled Gastroesophageal reflux disease Adjustment disorder with depressed mood Allergic rhinitis (02/08/15) Cholelithiasis (01/16/15) Diverticula of colon Essential hypertension (02/01/14) Gastric motor function disorder Hyperlipidemia Abnormal mammography (08/20/03) right; neg. BX Obesity Surgical History Surgical History History of cholecystectomy (~02/2023) S/P colonoscopy (~2013) [place]- Tubular adenoma, Inflammatory and hyperplastic History of bilateral ligation of fallopian tubes Tobacco Smoking/Tobacco Use Status: Never Passive smoking exposure: Yes Second hand exposure: No Alcohol Alcohol Intake: current Alcohol intake frequency: holidays/special occasions only Substance Use Substance use: Never Substance use type: does not use Vital Signs and Lab Results Vital Signs Most Recent Vital Signs in EMR: Most Recent Vital Signs Temp Pulse Resp BP Pulse Ox 36.6 C 90 18 142/75 H 98 11/04/24 09:20 11/04/24 09:20 11/04/24 09:20 11/04/24 09:20 11/04/24 09:20 Lab Results Blood Type / Crossmatch: No Data to Display Complete Blood Count: No Data to Display Complete Metabolic Panel: No Data to Display Liver Function Panel: No Data to Display Coagulation Panel: No Data to Display Cardiac Panel: No Data to Display Arterial Blood Gas: No Data to Display Venous Blood Gas: No Data to Display Pancreas Panel: No Data to Display Thyroid Panel: No Data to Display Infectious Disease: No Data to Display Blood Cultures: No Data to Display Toxicology Panel: No Data to Display Imaging and Studies Imaging and Studies Study information below may be from another EMR and interpreted by another provider. Please see original notes in EMR for more complete details. EKG Summary: DATE/TIME OF SERVICE: 01/26/232340 : 1945PERFORMING LOCATION: ER APPROVED REPORT Exam: Resting ECG Reason for Exam: chest pain Patient Location: E HR:85 bpm ECG Measurements Heart Rate 85 AXIS TX 161 P 34 QRSd 67 QRS -16 QT 370 T49 QTc 441 Conclusion Sinus rhythm...normal P axis, V-rate 60- 99 Low voltage, precordial leads...precordial leads <1.0mV. Sinus. Left axis. Normal intervals. No STEMI. I have reviewed and interpreted ECG and agree with software generated interpretation. Echocardiogram Summary: Date of Exam: 09/16/19Sex: F Admission Date: 09/15/19 : 1945 Age: 74 Exam(s) a US:US echocardiogram APPROVED REPORT EXAM: Comprehensive 2D, Doppler, and color-flow Echocardiogram Patient Location: In-Patient [employer] Teacher: Eveline Linton RDCS (AE) Rhythm: NSR Indications: SUSPECTED CVA, WITH BUBBLE STUDY PLEASE! Conclusion Normal LV wall thickness and chmber size EF is 60 -65%. Wall motion is normal There is no chamber enlargement There is no significant valvular disease Bubble study is negative for intracardiac shunt Carotid Artery Summary:: Date of Exam: 09/16/19Sex: F Admission Date: 09/15/19 : 1945 Age: 74 Exam(s) a US:US carotid EXAM: US CAROTID CLINICAL HISTORY: suspected CVA TECHNIQUE: Ultrasound performed using standard protocol. COMPARISON: US ECHOCARDIOGRAM from 09/16/2019 FINDINGS: Duplex evaluation of the carotid circulation was performed according to the usual protocol. There is little if any visible atheromatous plaque in the carotid circulation. Flow velocities in common internal and external carotid arteries are within normal limits bilaterally. There is bilateral antegrade vertebral flow. IMPRESSION: No evidence of a hemodynamically significant carotid stenosis. Anesthesia Assessment and Plan Anesthesia History Personal History: No History of Anesthesia Complications Family History: No Family History of Anesthesia Complications Exercise Tolerance Exercise Tolerance: Metabolic Equivalents>4 Cardiac & Pulmonary Exam Cardiac Exam: Normal S1/S2 Heart Sounds Pulmonary Exam: Clear Bilateral Breath Sounds Implantable Cardiac Device Does patient have a Pacemaker or an ICD?: No Airway Exam Known Difficult Airway: No Mallampati Class: 3 Mouth Opening: Normal (> 3cm) Thyromental Distance: Greater than 3 cm Neck Range of Motion: Full ROM Neck Circumference: Normal Teeth Condition: Normal Dentition ASA Classification ASA Score: ASA 3 Emergency Case?: No NPO Status NPO Status: NPO Clears >2 hours, Solids >8 hours Anesthesia Plan Resuscitation Status: Full Code Anesthesia Technique: MAC Anesthesia Airway Planned: Natural Airway Monitors Used: Standard Monitors
[2024-11-04 11:02] VITALS: BMI 36.1
[2024-11-04] MEDS: Duovisc Viscoelastic System EACH 1 EACH (11:20)
[2024-11-04] MEDS: Phenylephrine/Lidocaine (15/10) MG/ML 1 ML VIAL (11:21)
[2024-11-04] MEDS: Lidocaine 1% Pres-Free 5 ML VIAL (11:21)
[2024-11-04] MEDS: Moxifloxacin-PF 1 MG/ML VIAL (11:21)
[2024-11-04] MEDS: Balanced Salt Soln.-PLUS 500 ML BAG OP (11:22)
[2024-11-04] MEDS: Povidone-Iodine Ophth 30 ML BTL (11:22)
[2024-11-04] MEDS: Tetracaine 0.5% 4 ML BTL OD (11:23)
[2024-11-04] MEDS: Prednisolone 1%, Moxifloxacin 0.5%, Bromfenac 0.09% 5.6ML BTL OD (11:23)
[2024-11-04 11:45] VITALS: BP 145/72; PULSE 83; RESP 16; TEMP 37; O2SAT 99
--- NOTE | 2024-11-04 11:47 | W.PM.DSUDISC ---
Date of service: 11/04/24 Discharge Plan Disposition Patient Disposition: Home Discharge Details Attending Provider: Pavan Eller Primary Care Provider: Haseeb Estrada Home Meds and New Rx's Prescriptions: No Action tramadol 50 mg tablet 50 mg PO Q8H PRN (Reason: cholecystectomy) Qty: 9 0RF Rx Instructions: Take 1 tablet by mouth up to every 8 hours if needed for severe pain. Do not drive while taking these medications as it can be quite strong. tetanus-diphtheria toxoids-Td 2-2 Lf unit/0.5 mL suspension 0.5 ml IM ONCE Qty: 0.5 0RF albuterol sulfate 90 mcg/actuation HFA aerosol inhaler 2 puff inhalation Q6H PRN (Reason: shortness of breath or wheezing) Qty: 6.7 0RF meclizine 25 mg tablet 25 mg PO TID PRN (Reason: dizziness) Qty: 15 0RF multivitamin 1 EACH capsule 1 ea PO DAILY Patient Comments: ran out telmisartan 80 mg tablet 80 mg PO DAILY Qty: 90 3RF biotin 5 mg capsule 5 mg PO DAILY Qty: 90 3RF diclofenac potassium 50 mg tablet 50 mg PO TID PRN (Reason: pain) Qty: 30 2RF loratadine 10 mg tablet 10 mg PO DAILY PRN (Reason: allergy symptoms) Qty: 30 5RF omeprazole 20 mg capsule,delayed release(DR/EC) 20 mg PO DAILY PRN Discharge Instructions Stand Alone Forms: DSU Post-Op CataractViviana (DSU) Discharge Orders Discharge Orders: Discharge Order (Routine); Ordered 11/04/24 Ordered By: Pavan Eller DS: Diagnosis Discharge Diagnosis (1) Nuclear age-related cataract, right eye: Status: Resolved
--- NOTE | 2024-11-04 11:48 | W.PM.OP ---
Operative Note Operative Note PRE-OP DIAGNOSIS: Nuclear cataract, right eye Poorly dilating pupil, right eye POST-OP DIAGNOSIS: same PROCEDURE: Cataract extraction using phacoemulsification with intraocular lens implant, right eye Pupillary dilation and iris stabilization with 6.25 mm Malyugin ring SURGEON: Pavan Eller ANESTHESIA TYPE: Local By Surgeon and MAC Refer to Anesthesia Record ESTIMATED BLOOD LOSS: 0 PATHOLOGY: none sent COMPLICATIONS: None Patient was transported to: same day Patient's condition: stable Implants: Tc Clareon [id number] Indications: Progressive decreased vision due to cataract, right eye Poorly dilating pupil, right eye Procedure Description: CATARACT SURGERY OPERATIVE REPORT PREOPERATIVE DIAGNOSIS: Nuclear cataract, right eye Poorly dilating pupil, right eye POSTOPERATIVE DIAGNOSIS: Same OPERATION: Cataract extraction using phacoemulsification with posterior chamber intraocular lens implant, right eye. Pupillary dilation and iris stabilization with pupillary expansion device IOL: IOL Artificial Breast Fabricator/Model: Tc Clareon CCA0T0 IOL Power: + 17.5 diopters IOL Serial Number: [id number] Optic Diameter: 6.0mm Haptic/Overall Diameter: 13.0mm PHACO INFO: Tc Brightcove K.K.urion Vision System with OZil and Active Fluidics Cumulative Dispersed Energy (CDE): 7.96 seconds SURGEON: Pavan Eller MD, EMELY ANESTHESIA: Monitored Anesthesia Care (MAC), with local sub-tenon's anesthetic infiltration COMPLICATIONS: None SPECIMENS: None INDICATIONS FOR PROCEDURE: The patient is a 79-year-old lady with history of 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 She significantly symptomatic that she desires cataract surgery in attempt to improve and maximize her vision. She has already undergone cataract surgery in the left eye and is doing well postoperatively. She now presents for cataract surgery in the right eye. See office notes for detailed information. PROCEDURE: The correct surgical eye was identified and marked as the right eye and the pupil was dilated in the preoperative area using mydriatics and cycloplegics. The dilated pupil size was 3.0 mm. The patient elected to proceed without oral sedation. The patient was brought to the operating room where cardiopulmonary monitoring was instituted and surgical time-out was performed, confirming the correct operative eye and IOL power. Topical anesthesia was administered and ophthalmic povidone-iodine 5% was instilled into the conjunctival fornices. The kristal-ocular area was prepped with Betadine 10% solution and draped in the usual sterile fashion for intraocular surgery, including an aperture drape. A Tegaderm transparent film dressing was cut in half and used to cover the lashes and lid margins. Care was taken to sequester the lashes and lid margins under the Tegaderm dressing. A lid speculum was placed between the lids of the operative eye and the Tc LuxOR Revalia operating microscope was maneuvered into position. Gissell scissors were then used to make a conjunctival buttonhole approximately 6mm posterior to the limbus in the inferonasal quadrant. Blunt dissection was carried out to expose bare sclera, and a blunt-tipped sub-tenon?s anesthesia cannula was introduced and passed posteriorly along the globe where non-preserved plain lidocaine was injected into posterior sub-Tenon?s space. A sideport knife was used to make a paracentesis port. Intraocular phenylephrine/lidocaine was injected into the anterior chamber. The anterior chamber was then filled with viscoelastic. A keratome knife was used to construct a two--plane clear corneal tunnel extending 2.0mm into clear cornea. A 6.25 mm pupillary expansion device was inserted into the pupillary space and engaged with the Kuglen hook. A flap was raised on the anterior capsule and capsulorhexis forceps were used to complete a continuous curvilinear capsulorhexis of 5.0 mm. Balanced salt solution was then used to perform cortical cleaving hydrodissection and nuclear hydrodelineation until the lens could be freely rotated within the capsular bag. The lens nucleus was then disassembled and removed within the capsular bag and iris plane using phacoemulsification. Residual cortical material was removed using the I/A handpiece. The posterior capsule was carefully polished to remove as much residual lens epithelial cells as safely possible. The capsular bag was then inflated and the anterior chamber deepened with cohesive viscoelastic. The lens implant described above was inserted into the capsular bag using the Tc Autonome Injector. A Kuglen hook was used to dial the IOL into position. The pupillary expansion device was then removed in the reverse order of its insertion. Residual viscoelastic was then removed first from posterior to the IOL, then from the anterior chamber using the I/A handpiece. The lens implant was noted to center nicely within the capsular bag. The incisions were stromally hydrated, and the anterior chamber was reformed using BSS. Then 0.5cc of moxifloxacin 1.0mg/ml were injected into the capsular bag and anterior chamber. The incisions were checked with a Weck spear and found to be secure. Several drops of ophthalmic povidone-iodine 5% were then applied to the eye followed by two drops of combination steroid/NSAID/antibiotic solution. The drapes were removed and a clear plastic protective eye shield was placed over the eye. The patient was then returned to Same Day Surgery in stable condition. Date of Procedure: 11/04/24
--- NOTE | 2024-11-04 11:58 | W.ANESPOSTOP ---
Postoperative Evaluation Date, Time and Location Date Performed: 11/04/24 Time Performed: 11:48 Patient Location: Day Surgery Unit Vital Signs Most Recent Imported Vital Signs: Most Recent Vital Signs Temp Pulse Resp BP Pulse Ox 37 C 83 16 145/72 H 99 11/04/24 11:45 11/04/24 11:45 11/04/24 11:45 11/04/24 11:45 11/04/24 11:45 Most Recent Vital Signs Temp Pulse Resp BP Pulse Ox 37 C 83 16 145/72 H 99 11/04/24 11:45 11/04/24 11:45 11/04/24 11:45 11/04/24 11:45 11/04/24 11:45 Pain Score Most Recent Pain Score: Most Recent Pain Score Pain Level 0 11/04/24 11:45 Assessment Mental Status: Awake (Alert & Oriented to Patient Baseline) Airway and Respiratory Function: Patent airway with normal (patient baseline) respiratory exam Cardiovascular Function: Hemodynamically Stable Hydration Status: Adequately Hydrated Nausea & Vomiting: No Nausea or Vomiting Pain: Pt. Denies Any Pain Peripheral Nerve Block: Patient did not receive a nerve block
== END 2024-11-04 12:08 | disposition home or self-care (01) ==
LOC: SUR 09:18
PROVIDERS: PCP Family Medicine; Visit Provider Ophthalmology
PROC: (CPT 66982; principal; 2024-11-04 10:30)
DX: H25.11 Age-related nuclear cataract, right eye (principal); H57.09 Other anomalies of pupillary function; Z98.42 Cataract extraction status, left eye
CPT/HCPCS: 66982; 00123; V2632; J2003

== ENCOUNTER 2024-12-21 03:13 | Outpatient (CLI) | payer MEDICARE, MEDICAID, SELFPAY ==
[2024-12-21 12:45] LABS: Hemoglobin A1C 5.4 % (<5.7)
[2024-12-21 12:54] LABS: CREATININE 1.3 mg/dL (0.55-1.02); Estimated GFR 42.09 (mL/min/1.73m2)
== END 2024-12-21 03:14 | disposition home or self-care (01) ==
LOC: LOS 03:13
PROVIDERS: PCP Family Medicine; Visit Provider Family Medicine
DX: I10 Essential (primary) hypertension (principal); R73.9 Hyperglycemia, unspecified
CPT/HCPCS: 36415; 82565; 83036